=== PATIENT | male | born 1955 | race Caucasian/White ===

== ENCOUNTER 2020-02-08 13:01 | Inpatient (IN) | payer BC, MEDICARE ==
[2020-02-08] MEDS ORDERED: DILTIAZEM DRIP BOLUS FROM BAG 1 MG SOLN IV ONE (13:35)
--- NOTE | 2020-02-08 13:39 | ED ---
General Adult HPI - General Chief complaint: Arrhythmia/Palpitations Stated complaint: AFib Time Seen by Provider: 02/08/20 13:20 Source: patient, RN notes reviewed Mode of arrival: ambulatory Limitations: no limitations - History of Present Illness Initial comments: Patient is a pleasant [age]-year-old male presenting to the emergency Department with concern for new-onset atrial fibrillation. Patient went to surgery Center today and was going to have cataract surgery however prior to procedurepatient was diagnosed with atrial fibrillation. No history of similar symptoms previous. Patient is symptom-free.no chest pain. No dyspnea. Mild leg swelling which is chronic and unchanged. Patient did not take a Lasix today. No palpitations. No history of arrhythmia.patient does normally take Plavix and aspirin. - Related Data Home Medications Medication Instructions Recorded Confirmed Aspirin EC [Ecotrin Low Dose] 81 mg PO HS 02/08/20 02/08/20 Atorvastatin [Lipitor] 40 mg PO DAILY 02/08/20 02/08/20 Benazepril HCl [Lotensin] 40 mg PO HS 02/08/20 02/08/20 Cholecalciferol [Vitamin D3 (25 1,000 unit PO DAILY 02/08/20 02/08/20 Mcg = 1000 Iu)] Clopidogrel [Plavix] 75 mg PO DAILY 02/08/20 02/08/20 Doxazosin Mesylate 8 mg PO HS 02/08/20 02/08/20 Empagliflozin [Jardiance] 10 mg PO DAILY 02/08/20 02/08/20 Furosemide [Lasix] 20 mg PO DAILY 02/08/20 02/08/20 Insulin Glargine,Hum.rec.anlog 70 unit SQ HS 02/08/20 02/08/20 [Lantus Solostar] Insulin Lispro [humaLOG Kwikpen] See Protocol SQ TID-W/MEALS 02/08/20 02/08/20 Ketorolac Tromethamine [Acular 1 drop RIGHT EYE BID 02/08/20 02/08/20 0.5%] L.acidoph,Paracasei, B.lactis 1 cap PO DAILY 02/08/20 02/08/20 [Probiotic] Levothyroxine Sodium [Synthroid] 50 mcg PO DAILY 02/08/20 02/08/20 Loteprednol Etabonate [Inveltys] 1 drop RIGHT EYE BID 02/08/20 02/08/20 Ofloxacin 0.3% Ophth Soln [Ocuflox 1 drop RIGHT EYE BID 02/08/20 02/08/20 Ophth Soln] [place]-3 Fatty Acids/Fish Oil 1 cap PO HS 02/08/20 02/08/20 [[place]-3 Fish Oil 1,200 mg Sfgl] carvediloL [Carvedilol] 12.5 mg PO BID 02/08/20 02/08/20 Allergies Allergy/AdvReac Type Severity Reaction Status Date / Time codeine AdvReac Nausea & Verified 02/08/20 13:54 Vomiting Review of Systems ROS Statement: Those systems with pertinent positive or pertinent negative responses have been documented in the HPI. ROS Other: All systems not noted in ROS Statement are negative. Constitutional: Denies: fever Eyes: Denies: eye pain ENT: Denies: ear pain Respiratory: Denies: cough, dyspnea Cardiovascular: Reports: dyspnea on exertion (mild chronic, unchanged). Denies: chest pain, palpitations, orthopnea Endocrine: Denies: fatigue Gastrointestinal: Denies: abdominal pain Genitourinary: Denies: dysuria Musculoskeletal: Denies: back pain Skin: Denies: rash Neurological: Denies: weakness Past Medical History Past Medical History: Coronary Artery Disease (CAD), Diabetes Mellitus, Hyperlipidemia, Hypertension, Vascular Disorder Past Surgical History: Heart Catheterization With Stent Additional Past Surgical History / Comment(s): kidney stones Past Psychological History: No Psychological Hx Reported Smoking Status: Former smoker Past Alcohol Use History: None Reported Past Drug Use History: None Reported General Exam Limitations: no limitations General appearance: alert, in no apparent distress Head exam: Present: normocephalic Eye exam: Present: normal appearance Neck exam: Present: normal inspection Respiratory exam: Present: normal lung sounds bilaterally Cardiovascular Exam: Present: tachycardia, irregular rhythm Expanded Peripheral pulses: 2+: Radial (R), Radial (L), Posterior Tibialis (R), Posterior Tibialis (L) GI/Abdominal exam: Present: soft. Absent: tenderness Extremities exam: Present: normal inspection. Absent: pedal edema, calf tenderness Neurological exam: Present: alert Psychiatric exam: Present: normal affect, normal mood Skin exam: Present: normal color Course Vital Signs 02/08/20 02/08/20 02/08/20 13:13 14:04 14:14 Temperature 97 F L Pulse Rate 121 H 107 H 130 H Pulse Rate [ 131 H [employer] ] Respiratory 18 18 20 Rate Blood Pressure 132/81 118/79 118/79 O2 Sat by Pulse 99 98 98 Oximetry EKG Findings - EKG Comments: EKG Findings:: A. fib with RVR, rate 141. QRS 104. QT 308. QTC 471. Left axis. Left anterior fascicular block. Poor R-wave progression. Septal Q waves. Inferior Q waves. No acute ST change. Medical Decision Making - Medical Decision Making patient reevaluated and resting comfortably in bed. Heart rate 133. Patient updated on results and plan. Case discussed with Dr. Mann, who will admit covering for hospital call. Cardiology will be placed on consult. - Lab Data Result diagrams: 02/08/20 13:41 02/08/20 13:41 Lab Results 02/08/20 02/08/20 02/08/20 Range/Units 13:41 13:41 13:41 WBC 9.2 (3.8-10.6) k/uL RBC 5.30 (4.30-5.90) m/uL Hgb 15.5 (13.0-17.5) gm/dL Hct 48.2 (39.0-53.0) % MCV 90.9 (80.0-100.0) fL MCH 29.3 (25.0-35.0) pg MCHC 32.2 (31.0-37.0) g/dL RDW 14.6 (11.5-15.5) % Plt Count 125 L (150-450) k/uL MPV 9.5 Neutrophils % 76 % Lymphocytes % 15 % Monocytes % 7 % Eosinophils % 1 % Basophils % 0 % Neutrophils # 7.0 (1.3-7.7) k/uL Lymphocytes # 1.3 (1.0-4.8) k/uL Monocytes # 0.6 (0-1.0) k/uL Eosinophils # 0.1 (0-0.7) k/uL Basophils # 0.0 (0-0.2) k/uL PT 10.4 (9.0-12.0) sec INR 1.0 (<1.2) APTT 25.1 (22.0-30.0) sec Sodium 138 (137-145) mmol/L Potassium 4.7 (3.5-5.1) mmol/L Chloride 109 H (98-107) mmol/L Carbon Dioxide 22 (22-30) mmol/L Anion Gap 7 mmol/L BUN 34 H (9-20) mg/dL Creatinine 1.16 (0.66-1.25) mg/dL Est GFR (CKD-EPI)AfAm 77 (>60 ml/min/1.73 sqM) Est GFR (CKD-EPI)NonAf 66 (>60 ml/min/1.73 sqM) Glucose 266 H (74-99) mg/dL Calcium 9.4 (8.4-10.2) mg/dL Magnesium 2.0 (1.6-2.3) mg/dL Total Bilirubin 0.9 (0.2-1.3) mg/dL AST 24 (17-59) U/L ALT 23 (4-49) U/L Alkaline Phosphatase 78 (38-126) U/L Troponin I (0.000-0.034) ng/mL Total Protein 7.1 (6.3-8.2) g/dL Albumin 4.1 (3.5-5.0) g/dL TSH 1.190 (0.465-4.680) mIU/L Free T4 1.00 (0.78-2.19) ng/dL Free T3 pg/mL 3.5 (2.8-5.3) pg/ml 02/08/20 Range/Units 13:41 WBC (3.8-10.6) k/uL RBC (4.30-5.90) m/uL Hgb (13.0-17.5) gm/dL Hct (39.0-53.0) % MCV (80.0-100.0) fL MCH (25.0-35.0) pg MCHC (31.0-37.0) g/dL RDW (11.5-15.5) % Plt Count (150-450) k/uL MPV Neutrophils % % Lymphocytes % % Monocytes % % Eosinophils % % Basophils % % Neutrophils # (1.3-7.7) k/uL Lymphocytes # (1.0-4.8) k/uL Monocytes # (0-1.0) k/uL Eosinophils # (0-0.7) k/uL Basophils # (0-0.2) k/uL PT (9.0-12.0) sec INR (<1.2) APTT (22.0-30.0) sec Sodium (137-145) mmol/L Potassium (3.5-5.1) mmol/L Chloride (98-107) mmol/L Carbon Dioxide (22-30) mmol/L Anion Gap mmol/L BUN (9-20) mg/dL Creatinine (0.66-1.25) mg/dL Est GFR (CKD-EPI)AfAm (>60 ml/min/1.73 sqM) Est GFR (CKD-EPI)NonAf (>60 ml/min/1.73 sqM) Glucose (74-99) mg/dL Calcium (8.4-10.2) mg/dL Magnesium (1.6-2.3) mg/dL Total Bilirubin (0.2-1.3) mg/dL AST (17-59) U/L ALT (4-49) U/L Alkaline Phosphatase (38-126) U/L Troponin I <0.012 (0.000-0.034) ng/mL Total Protein (6.3-8.2) g/dL Albumin (3.5-5.0) g/dL TSH (0.465-4.680) mIU/L Free T4 (0.78-2.19) ng/dL Free T3 pg/mL (2.8-5.3) pg/ml - Radiology Data Radiology results: image reviewed (Chest x-ray shows cardiomegaly) Critical Care Time Critical Care Time: Yes Total Critical Care Time: 32 Disposition Clinical Impression: Atrial fibrillation with RVR Disposition: ADMITTED IP TO THIS HOSP Is patient prescribed a controlled substance at d/c from ED?: No Referrals: Rudy Del Cid DO [Primary Care Provider] - 1-2 days Decision Time: 15:22
[2020-02-08] MEDS ORDERED: DILTIAZEM 125 MG in SODIUM CHLORIDE 0.9% 100 ML IV SCH (13:45)
--- NOTE | 2020-02-08 13:55 | XR ---
EXAMINATION TYPE: XR chest 1V portable DATE OF EXAM: 02/08/2020 COMPARISON: None INDICATION: Dysrhythmia TECHNIQUE: Single frontal view of the chest is obtained. FINDINGS: The heart size is enlarged. The pulmonary vasculature is normal. The lungs are clear. IMPRESSION: 1. Cardiomegaly
[2020-02-08 13:59] LABS: Basophils % (A) 0 %; Eosinophils # (A) 0.1 k/uL (0-0.7); Eosinophils % (A) 1 %; HCT 48.2 % (39.0-53.0); HGB 15.5 gm/dL (13.0-17.5); Lymphocytes # (A) 1.3 k/uL (1.0-4.8); Lymphocytes % (A) 15 %; MCH 29.3 pg (25.0-35.0); MCHC 32.2 g/dL (31.0-37.0); MCV 90.9 fL (80.0-100.0); Mean Platelet Volume 9.5; Monocytes # (A) 0.6 k/uL (0-1.0); Monocytes % (A) 7 %; Neutrophils % (A) 76 %; Platelet Count 125 k/uL (150-450); RDW 14.6 % (11.5-15.5); WBC 9.2 k/uL (3.8-10.6)
[2020-02-08 14:08] LABS: Albumin 4.1 g/dL (3.5-5.0); Calcium 9.4 mg/dL (8.4-10.2); Potassium 4.7 mmol/L (3.5-5.1); Total Bilirubin 0.9 mg/dL (0.2-1.3); Total Protein 7.1 g/dL (6.3-8.2)
[2020-02-08 14:13] LABS: Partial Thromboplastin Time 25.1 sec (22.0-30.0); Prothrombin Time 10.4 sec (9.0-12.0)
[2020-02-08] MEDS ORDERED: HEPARIN SODIUM,PORCINE 5,000 UNIT/ML 1 ML VIAL IV ONE (15:22)
[2020-02-08] MEDS ORDERED: NITROGLYCERIN SL TABS 0.4 MG TAB SUBLINGUAL PRN (15:22)
[2020-02-08] MEDS ORDERED: ASPIRIN 81 MG PO STA (15:22)
[2020-02-08] MEDS ORDERED: HEPARIN SOD,PORK IN 0.45% NACL 25,000 UNIT in 0.45% NACL 1 250ML.BAG IV SCH (15:30)
[2020-02-08 16:30] LABS: Glucose,Whole Blood 176 mg/dL (75-99)
[2020-02-08] MEDS: carvediloL 12.5 MG TAB PO SCH (19:56)
[2020-02-08 20:03] LABS: Glucose,Whole Blood 149 mg/dL (75-99)
--- NOTE | 2020-02-08 20:22 | P.HPIM ---
History of Present Illness H&P Date: 02/08/20 Chief Complaint: Arrhythmia Patient is a 64-year-old male with a known history of coronary artery disease with prior stent placement in 2009, currently not on follow-up with his informatics nurse, Dr. Doe for the past 2 to 3 years, hypertension, diabetes type 2 insulin-dependent, hyperlipidemia, previous history of smoking and obesity with BMI 38.7 presents to ER with concern for new onset atrial fibrillation. Patient went to surgery center for cataract surgery however prior to procedure patient was found to be in rapid ventricular rate. Patient sent to ER for suspected A. fib with RVR. Otherwise patient denied any complaints of dizziness or lightheadedness. Denied any palpitations. No complaints of chest pain or shortness breath. Patient does take Lasix daily which he did not take today due to surgery. Patient also noticed swelling of his legs slightly more than his usual chronic swelling. No headache or dizziness or lightheadedness. No fever no chills. No cough or sputum production. Denied any recent illnesses. Chest x-ray showed cardiomegaly. EKG showed atrial fibrillation with rapid rate Laboratory data showed sodium 138, potassium 4.7, BUN 34 and creatinine 1.16 Blood sugar is 266 Troponin x2 - TSH is 1.19 Liver enzymes are within normal limits. WBC 10.2, hemoglobin 15.5 and platelets 125 EKG showed A. fib with RVR with heart rate 141. No acute ST changes. Review of Systems Constitutional: Patient denies any fever or chills . No generalized weakness or weight loss. Abdomen: Patient denied nausea vomiting and diarrhea and abdominal pain. Cardiovascular: Patient denies any chest pain or short of breath no palpitations. Respiratory: patient denied any cough or sputum production. No shortness of breath Neurologic: Patient denied any numbness or tingling headache. Musculoskeletal: Patient denies any complaints of joint swelling or deformity. Skin: Negative Psychiatric: Negative Endocrine: No heat or cold intolerance. No recent weight gain. Genitourinary: No dysuria or hematuria. All other 14 point ROS negative except the above Past Medical History Past Medical History: Atrial Fibrillation, Coronary Artery Disease (CAD), Diabetes Mellitus, Hyperlipidemia, Hypertension, Vascular Disorder Additional Past Medical History / Comment(s): kidney stones, New a-fib 02/08/2020 History of Any Multi-Drug Resistant Organisms: None Reported Past Surgical History: Heart Catheterization With Stent Additional Past Surgical History / Comment(s): kidney stones Past Anesthesia/Blood Transfusion Reactions: No Reported Reaction Date of Last Stent Placement:: 2009 Past Psychological History: No Psychological Hx Reported Smoking Status: Former smoker Past Alcohol Use History: None Reported Past Drug Use History: None Reported - Past Family History Father Family Medical History: Chest Pain / Angina, Coronary Artery Disease (CAD) Additional Family Medical History / Comment(s): CABG Medications and Allergies Home Medications Medication Instructions Recorded Confirmed Type Aspirin EC [Ecotrin Low Dose] 81 mg PO HS 02/08/20 02/08/20 History Atorvastatin [Lipitor] 40 mg PO DAILY 02/08/20 02/08/20 History Benazepril HCl [Lotensin] 40 mg PO HS 02/08/20 02/08/20 History Cholecalciferol [Vitamin D3 (25 1,000 unit PO DAILY 02/08/20 02/08/20 History Mcg = 1000 Iu)] Clopidogrel [Plavix] 75 mg PO DAILY 02/08/20 02/08/20 History Doxazosin Mesylate 8 mg PO HS 02/08/20 02/08/20 History Empagliflozin [Jardiance] 10 mg PO DAILY 02/08/20 02/08/20 History Furosemide [Lasix] 20 mg PO DAILY 02/08/20 02/08/20 History Insulin Glargine,Hum.rec.anlog 70 unit SQ HS 02/08/20 02/08/20 History [Lantus Solostar] Insulin Lispro [humaLOG Kwikpen] See Protocol SQ TID-W/MEALS 02/08/20 02/08/20 History Ketorolac Tromethamine [Acular 1 drop RIGHT EYE BID 02/08/20 02/08/20 History 0.5%] L.acidoph,Paracasei, B.lactis 1 cap PO DAILY 02/08/20 02/08/20 History [Probiotic] Levothyroxine Sodium [Synthroid] 50 mcg PO DAILY 02/08/20 02/08/20 History Loteprednol Etabonate [Inveltys] 1 drop RIGHT EYE BID 02/08/20 02/08/20 History Ofloxacin 0.3% Ophth Soln [Ocuflox 1 drop RIGHT EYE BID 02/08/20 02/08/20 History Ophth Soln] [place]-3 Fatty Acids/Fish Oil 1 cap PO HS 02/08/20 02/08/20 History [[place]-3 Fish Oil 1,200 mg Sfgl] carvediloL [Carvedilol] 12.5 mg PO BID 02/08/20 02/08/20 History Allergies Allergy/AdvReac Type Severity Reaction Status Date / Time codeine AdvReac Nausea & Verified 02/08/20 13:54 Vomiting Physical Exam Vitals: Vital Signs Temp Pulse Pulse Resp BP BP Pulse Ox 02/08/20 19:54 67 16 112/75 96 02/08/20 15:54 116 H 18 118/79 98 02/08/20 15:38 113 H 20 90/61 97 02/08/20 14:14 130 H 20 118/79 98 02/08/20 14:04 107 H 131 H 18 118/79 98 02/08/20 13:13 97 F L 121 H 18 132/81 99 Intake and Output 02/08/20 02/08/20 02/08/20 06:59 14:59 22:59 Intake Total 240 Balance 240 Intake: Oral 240 Other: Weight 125.736 kg 125.736 kg PHYSICAL EXAMINATION: Patient is lying in the bed comfortably, no acute distress, awake alert and oriented.. HEENT: Normocephalic. Neck is supple. Pupils reactive. Nostrils clear. Oral cavity is moist. Ears reveal no drainage. Neck reveals no JVD, carotid bruits, or thyromegaly. CHEST EXAMINATION: Trachea is central. Symmetrical expansion. Lung ennis clear to auscultation and percussion. CARDIAC: Normal S1, S2 with no gallops. No murmurs. Irregularly irregular rhythm. ABDOMEN: Soft. Bowel sounds normal. No organomegaly. No abdominal bruits. Extremities: 2+ edema. No clubbing or cyanosis Neurologically awake, alert, oriented x3 with well-coordinated movements. No focal deficits noted Skin: No rash or skin lesions. Psychiatric: Coperative. Nonsuicidal Musculoskeletal: No joint swelling or deformity. Normal range of motion. Results CBC & Chem 7: 02/08/20 13:41 02/08/20 13:41 Labs: Abnormal Lab Results - Last 24 Hours (Table) 02/08/20 02/08/20 02/08/20 Range/Units 13:41 13:41 16:28 Plt Count 125 L (150-450) k/uL Chloride 109 H (98-107) mmol/L BUN 34 H (9-20) mg/dL Glucose 266 H (74-99) mg/dL POC Glucose (mg/dL) 176 H (75-99) mg/dL 02/08/20 Range/Units 20:02 Plt Count (150-450) k/uL Chloride (98-107) mmol/L BUN (9-20) mg/dL Glucose (74-99) mg/dL POC Glucose (mg/dL) 149 H (75-99) mg/dL Thrombosis Risk Factor Assmnt - DVT/VTE Prophylaxis DVT/VTE Prophylaxis: Pharmacologic Prophylaxis ordered - Choose All That Apply Any of the Below Risk Factors Present?: Yes Each Factor Represents 1 point: Obesity (BMI >25) Other Risk Factors: Yes Each Risk Factor Represents 2 Points: Age 61-74 years Other congenital or acquired thrombophilia - If yes, enter type in comment: No Thrombosis Risk Factor Assessment Total Risk Factor Score: 3 Thrombosis Risk Factor Assessment Level: Moderate Risk Assessment and Plan Assessment: Atrial fibrillation with rapid regular rate. New onset Coronary artery disease with history of stent placement in 2009 currently not on follow-up with cardiology Hypertension Hyperlipidemia Diabetes type 2 insulin-dependent Previous history of smoking Obesity BMI 38.7 Hypothyroidism DVT prophylaxis Plan: Patient will be continued on telemetry monitoring. Continue with Cardizem drip and heparin drip. Cardiology was consulted. TSH is within normal limits. Continue with aspirin statins and Coreg. Continue with insulin dosing and titrate as needed. Continue to follow closely and further recommendations based on clinical course. Time with Patient: Greater than 30
[2020-02-08] MEDS: DOXAZOSIN 4 MG TAB PO SCH (20:35)
[2020-02-08] MEDS: INSULIN DETEMIR (LEVEMIR) 100 UNIT/ML SYR SQ SCH (20:35)
[2020-02-08] MEDS: INSULIN ASPART (NovoLOG) 100 UNIT/ML VIAL SQ SCH (20:35)
[2020-02-08] MEDS ORDERED: NON FORMULARY DRUG (Omega-3 Fatty Acids/Fish Oil [Omega-3 Fish Oil 1,200 Mg Sfgl] 1 EACH C PO SCH (21:00)
[2020-02-08] MEDS: KETOROLAC 0.5% OPHTH DROPS 5 ML BTL RIGHT EYE SCH (22:20)
[2020-02-08] MEDS: OFLOXACIN 0.3% OPHTH DROPS 5 ML BOTTLE RIGHT EYE SCH (22:20)
[2020-02-08] MEDS: NON FORMULARY DRUG (Loteprednol Etabonate [Inveltys] 2.8 ML Drops.Susp) RIGHT EYE SCH (22:20)
[2020-02-09 04:58] LABS: Platelet Count 124 k/uL (150-450)
[2020-02-09 05:40] LABS: Cholesterol 124 mg/dL (<200); HDL Cholesterol 34 mg/dL (40-60); LDL Cholesterol,Calculated 58 mg/dL (0-99); Triglycerides 158 mg/dL (<150)
[2020-02-09] MEDS: LEVOTHYROXINE 50 MCG TAB PO SCH (06:06)
[2020-02-09] MEDS: carvediloL 12.5 MG TAB PO SCH (06:09)
[2020-02-09 06:21] LABS: Glucose,Whole Blood 162 mg/dL (75-99)
[2020-02-09] MEDS: INSULIN ASPART (NovoLOG) 100 UNIT/ML VIAL SQ SCH ×5 (06:22→21:13)
[2020-02-09] MEDS ORDERED: ALPRAZolam 0.5 MG TAB PO PRN (08:43)
[2020-02-09] MEDS ORDERED: ASPIRIN 325 MG TAB PO STA (08:43)
[2020-02-09] MEDS ORDERED: ALPRAZolam 0.25 MG TAB PO PRN (08:43)
[2020-02-09] MEDS ORDERED: ASPIRIN 81 MG PO SCH (09:00)
[2020-02-09] MEDS ORDERED: CLOPIDOGREL 75 MG TAB PO SCH (09:00)
[2020-02-09] MEDS ORDERED: ASPIRIN 325 MG TAB PO SCH (09:00)
[2020-02-09] MEDS: ATORVASTATIN 40 MG TAB PO SCH (09:20)
[2020-02-09] MEDS: METOPROLOL SUCCINATE (ER) 50 MG TAB.ER.24H PO SCH ×2 (09:20→21:14)
[2020-02-09] MEDS: CHOLECALCIFEROL 1,000 UNIT TAB PO SCH (09:20)
[2020-02-09] MEDS: NON FORMULARY DRUG (Empagliflozin [Jardiance] 10 MG Tablet) PO SCH (09:21)
[2020-02-09] MEDS: KETOROLAC 0.5% OPHTH DROPS 5 ML BTL RIGHT EYE SCH ×3 (09:21→23:44)
[2020-02-09] MEDS: OFLOXACIN 0.3% OPHTH DROPS 5 ML BOTTLE RIGHT EYE SCH ×2 (09:22→23:44)
[2020-02-09] MEDS: NON FORMULARY DRUG (Loteprednol Etabonate [Inveltys] 2.8 ML Drops.Susp) RIGHT EYE SCH ×2 (09:23→23:44)
--- NOTE | 2020-02-09 09:39 | P.CRDCN ---
History of Present Illness History of present illness: HISTORY OF PRESENTING ILLNESS This is a pleasant 64-year-old male past medical history significant for coronary artery disease s/p PCI to the RCA and circumflex 2007, diabetes mellitus, hypertension, dyslipidemia and former nicotine dependence. He has not followed with a well tester in the office in many years. Previously he was a patient of Dr. Doe and his stents were performed by Dr. Melgoza. We have been asked to see in consultation for new onset atrial fibrillation. He states he went in for a I procedure and they noticed his heart rate was fast and irregular. He got to the emergency department had an EKG revealing atrial fibrillation with rapid ventricular rate. He was initiated on IV heparin and IV Cardizem. He is seen and examined resting comfortably laying flat in bed in no acute distress. He denies symptoms of chest pain, shortness of breath, dizzines s or palpitations. He states in hindsight over the previous one year he has noticed increased fatigue and possibly a decrease in his level of activity. He is active on a regular basis and is doing mall walking and rides his bike regularly in the warm weather. Catheterization report from 08/2007 reviewed, he had a normal LV function with inferobasal hypokinesia. He initially had PCI of the RCA and was brought back 2 months later for 2 stents to the mid circumflex. Echo being performed at the bedside reveals impaired LV function. DIAGNOSTICS EKG reveals atrial fibrillation with rapid ventricular rate heart rate of 141. Chest xray reveals cardiomegaly with normal pulmonary vasculature. Laboratory reviewed, WBC 9.2, hemoglobin 15.5, platelets 125, sodium 138, potassium 4.7, creatinine 1.16, cardiac enzymes negative 3, TSH 1.19, LDL 58, HDL 34 and total cholesterol 124. Current cardiac medications include Plavix 75 mg daily, Lasix 20 mg daily, benazepril 40 mg at bedtime, doxazosin 8 mg at bedtime, carvedilol 12.5 mg twice a day, atorvastatin 40 mg daily and aspirin 81 mg daily. REVIEW OF SYSTEMS At the time of my exam: CONSTITUTIONAL: Denies fever or chills. CARDIOVASCULAR: Denies chest pain, shortness of breath, orthopnea, PND or palpitations. RESPIRATORY: Denies cough. GASTROINTESTINAL: Denies abdominal pain, diarrhea, constipation, nausea or vomiting. MUSCULOSKELETAL: Denies myalgias. NEUROLOGIC: Denies numbness, tingling or weakness. ENDOCRINE: Denies fatigue, weight change, polydipsia or polyurina. GENITOURINARY: Denies burning, hematuria or urgency with micturation. HEMATOLOGIC: Denies history of anemia or bleeding. PHYSICAL EXAMINATION Blood pressure 118/76 heart rate 65 afebrile and maintaining oxygen saturation on room air. CONSTITUTIONAL: No apparent distress. HEENT: Head is normocephalic. Pupils are equal, round. Sclerae anicteric. Mucous membranes of the mouth are moist. No JVD. No carotid bruit. CHEST EXAMINATION: Lungs are clear to auscultation. No chest wall tenderness is noted on palpation or with deep breathing. HEART EXAMINATION: Irregular rate and rhythm. S1, S2 heard. No murmurs, gallops or rub. ABDOMEN: Soft, nontender. Positive bowel sounds. EXTREMITIES: 2+ peripheral pulses, no lower extremity edema and no calf tenderness. NEUROLOGIC EXAMINATION: Patient is awake, alert and oriented x3. ASSESSMENT New onset paroxysmal atrial fibrillation with rapid ventricular response Cardiomyopathy Acute systolic heart failure Thrombocytopenia Hypertension Dyslipidemia Diabetes mellitus PLAN Recommend proceeding with cardiac catheterization to assess progression of coronary artery disease. I have discussed the risks, benefits and alternative therapies for the above-mentioned procedure and for both sedation/analgesia as well as necessary blood product administration, if indicated, as they pertain to this patient. The patient has indicated understanding and acceptance of the risks and procedures discussed. Questions have been answered appropriately and he is agreeable to move forward with the above stated procedure. His blood pressures have been borderline and heart rates are fairly controlled. Discontinue IV Cardizem and change Coreg to Toprol 50 mg twice a day. Currently maintained on heparin infusion, he will require superintendent container terminal anti- coagulation for thromboembolic protection. We will check the cost of Eliquis 5 mg BID. Further recommendations to follow based on clinical course. Thank you kindly for this consultation. Nurse Practitioner note has been reviewed, I agree with a documented findings and plan of care. Patient was seen and examined. Past Medical History Past Medical History: Atrial Fibrillation, Coronary Artery Disease (CAD), Diabetes Mellitus, Hyperlipidemia, Hypertension, Vascular Disorder Additional Past Medical History / Comment(s): kidney stones, New a-fib 02/08/2020 History of Any Multi-Drug Resistant Organisms: None Reported Past Surgical History: Heart Catheterization With Stent Additional Past Surgical History / Comment(s): kidney stones Past Anesthesia/Blood Transfusion Reactions: No Reported Reaction Date of Last Stent Placement:: 2009 Past Psychological History: No Psychological Hx Reported Smoking Status: Former smoker Past Alcohol Use History: None Reported Past Drug Use History: None Reported - Past Family History Father Family Medical History: Chest Pain / Angina, Coronary Artery Disease (CAD) Additional Family Medical History / Comment(s): CABG Medications and Allergies Home Medications Medication Instructions Recorded Confirmed Type Aspirin EC [Ecotrin Low Dose] 81 mg PO HS 02/08/20 02/08/20 History Atorvastatin [Lipitor] 40 mg PO DAILY 02/08/20 02/08/20 History Benazepril HCl [Lotensin] 40 mg PO HS 02/08/20 02/08/20 History Cholecalciferol [Vitamin D3 (25 1,000 unit PO DAILY 02/08/20 02/08/20 History Mcg = 1000 Iu)] Clopidogrel [Plavix] 75 mg PO DAILY 02/08/20 02/08/20 History Doxazosin Mesylate 8 mg PO HS 02/08/20 02/08/20 History Empagliflozin [Jardiance] 10 mg PO DAILY 02/08/20 02/08/20 History Furosemide [Lasix] 20 mg PO DAILY 02/08/20 02/08/20 History Insulin Glargine,Hum.rec.anlog 70 unit SQ HS 02/08/20 02/08/20 History [Lantus Solostar] Insulin Lispro [humaLOG Kwikpen] See Protocol SQ TID-W/MEALS 02/08/20 02/08/20 History Ketorolac Tromethamine [Acular 1 drop RIGHT EYE BID 02/08/20 02/08/20 History 0.5%] L.acidoph,Paracasei, B.lactis 1 cap PO DAILY 02/08/20 02/08/20 History [Probiotic] Levothyroxine Sodium [Synthroid] 50 mcg PO DAILY 02/08/20 02/08/20 History Loteprednol Etabonate [Inveltys] 1 drop RIGHT EYE BID 02/08/20 02/08/20 History Ofloxacin 0.3% Ophth Soln [Ocuflox 1 drop RIGHT EYE BID 02/08/20 02/08/20 History Ophth Soln] [place]-3 Fatty Acids/Fish Oil 1 cap PO HS 02/08/20 02/08/20 History [[place]-3 Fish Oil 1,200 mg Sfgl] carvediloL [Carvedilol] 12.5 mg PO BID 02/08/20 02/08/20 History Allergies Allergy/AdvReac Type Severity Reaction Status Date / Time codeine AdvReac Nausea & Verified 02/08/20 13:54 Vomiting Physical Exam Vitals: Vital Signs Temp Pulse Pulse Resp BP BP Pulse Ox 02/09/20 03:27 98.2 F 115 H 18 106/62 97 02/09/20 03:26 115 H 18 02/09/20 00:00 97.9 F 110 H 18 124/70 96 02/08/20 20:00 100 16 02/08/20 19:54 67 16 112/75 96 02/08/20 15:54 116 H 18 118/79 98 02/08/20 15:38 113 H 20 90/61 97 02/08/20 14:14 130 H 20 118/79 98 02/08/20 14:04 107 H 131 H 18 118/79 98 02/08/20 13:13 97 F L 121 H 18 132/81 99 Intake and Output 02/08/20 02/09/20 02/09/20 22:59 06:59 14:59 Intake Total 480 70 Balance 480 70 Intake: Intake, IV Titration 70 Amount Diltiazem 125 mg In 25 Sodium Chloride 0.9% 100 ml @ 5 MG/HR 5 mls/hr IV .Q24H [facility] Rx#:[id number] Heparin Sod,Pork in 0.45% 45 NaCl 25,000 unit In 0.45 % NaCl 1 250ml.bag @ 7. 953 UNITS/KG/HR 10 mls/hr IV .Q24H [facility] Rx#: [id number] Oral 480 Other: # Voids 2 Weight 125.736 kg 124.2 kg Results 02/09/20 04:49 02/08/20 13:41 Cardiac Enzymes 02/08/20 02/08/20 02/08/20 Range/Units 13:41 13:41 16:37 AST 24 (17-59) U/L Troponin I <0.012 <0.012 (0.000-0.034) ng/mL 02/08/20 Range/Units 21:41 AST (17-59) U/L Troponin I <0.012 (0.000-0.034) ng/mL Coagulation 02/08/20 02/08/20 02/09/20 Range/Units 13:41 21:41 04:49 PT 10.4 (9.0-12.0) sec APTT 25.1 54.6 H 56.4 H (22.0-30.0) sec Lipids 02/09/20 Range/Units 04:49 Triglycerides 158 H (<150) mg/dL Cholesterol 124 (<200) mg/dL HDL Cholesterol 34 L (40-60) mg/dL CBC 02/08/20 02/09/20 Range/Units 13:41 04:49 WBC 9.2 (3.8-10.6) k/uL RBC 5.30 (4.30-5.90) m/uL Hgb 15.5 (13.0-17.5) gm/dL Hct 48.2 (39.0-53.0) % Plt Count 125 L 124 L (150-450) k/uL Comprehensive Metabolic Panel 02/08/20 Range/Units 13:41 Sodium 138 (137-145) mmol/L Potassium 4.7 (3.5-5.1) mmol/L Chloride 109 H (98-107) mmol/L Carbon Dioxide 22 (22-30) mmol/L BUN 34 H (9-20) mg/dL Creatinine 1.16 (0.66-1.25) mg/dL Glucose 266 H (74-99) mg/dL Calcium 9.4 (8.4-10.2) mg/dL AST 24 (17-59) U/L ALT 23 (4-49) U/L Alkaline Phosphatase 78 (38-126) U/L Total Protein 7.1 (6.3-8.2) g/dL Albumin 4.1 (3.5-5.0) g/dL Current Medications Generic Name Dose Route Start Last Admin Trade Name Freq PRN Reason Stop Dose Admin Aspirin 81 mg 02/09/20 09:00 Aspirin 325 Mg Tab PO DAILY [facility] Atorvastatin Calcium 40 mg 02/09/20 09:00 Atorvastatin 40 Mg Tab PO DAILY [facility] Carvedilol 12.5 mg 02/08/20 18:00 02/09/20 06:09 Carvedilol 12.5 Mg Tab PO 12.5 mg BID-W/MEALS [facility] Administration Cholecalciferol 1,000 unit 02/09/20 09:00 Cholecalciferol 1,000 Unit Tab PO DAILY [facility] Doxazosin Mesylate 8 mg 02/08/20 21:00 02/08/20 20:35 Doxazosin 4 Mg Tab PO 8 mg HS [facility] Administration Diltiazem HCl 125 mg/ Sodium 125 mls @ 5 mls/hr 02/08/20 13:45 02/08/20 13:55 Chloride IV 5 mg/hr .Q24H [facility] 5 mls/hr Administration 5 MG/HR Heparin Sodium/Sodium Chloride 250 mls @ 10 mls/hr 02/08/20 15:30 02/08/20 15:33 25,000 unit/ Sodium Chloride IV 7.953 units/kg/hr .Q24H [facility] 10 mls/hr Administration Protocol 7.953 UNITS/KG/HR Insulin Aspart 0 unit 02/08/20 21:00 02/09/20 06:22 Insulin Aspart (Novolog) 100 Unit/Ml Vial SQ Not Given ACHS [facility] Protocol Insulin Detemir 70 unit 02/08/20 21:00 02/08/20 20:35 Insulin Detemir (Levemir) 100 Unit/Ml Syr SQ Not Given HS [facility] Ketorolac Tromethamine 1 drops 02/08/20 21:00 02/08/20 22:20 Ketorolac 0.5% Ophth Drops 5 Ml Btl RIGHT EYE Not Given BID [facility] Lactobacillus Acidoph/Bulgaricus 1 each 02/09/20 09:00 Lactobacillus Acidoph & Bulgar 1 Each Packet PO DAILY [facility] Levothyroxine Sodium 50 mcg 02/09/20 06:30 02/09/20 06:06 Levothyroxine 50 Mcg Tab PO Not Given DAILY@0630 [facility] Nitroglycerin 0.4 mg 02/08/20 15:22 Nitroglycerin Sl Tabs 0.4 Mg Tab SUBLINGUAL Q5M PRN Chest Pain Non-Formulary Medication 10 mg 02/09/20 09:00 Empagliflozin [Jardiance] PO DAILY [facility] Non-Formulary Medication 1 drop 02/08/20 21:00 02/08/20 22:20 Loteprednol Etabonate [Inveltys] RIGHT EYE Not Given BID [facility] Ofloxacin 1 drops 02/08/20 21:00 11/17/20 22:20 Ofloxacin 0.3% Ophth Drops 5 Ml Bottle RIGHT EYE Not Given BID [facility] Sodium Chloride 10 ml 02/08/20 21:00 02/08/20 20:37 Sodium Chloride 0.9% Flush 10 Ml Syringe IV Not Given BID [facility] Intake and Output 02/08/20 02/09/20 02/09/20 22:59 06:59 14:59 Intake Total 480 70 Balance 480 70 Intake: Intake, IV Titration 70 Amount Diltiazem 125 mg In 25 Sodium Chloride 0.9% 100 ml @ 5 MG/HR 5 mls/hr IV .Q24H [facility] Rx#:[id number] Heparin Sod,Pork in 0.45% 45 NaCl 25,000 unit In 0.45 % NaCl 1 250ml.bag @ 7. 953 UNITS/KG/HR 10 mls/hr IV .Q24H [facility] Rx#: [id number] Oral 480 Other: # Voids 2 Weight 125.736 kg 124.2 kg 02/09/20 04:49 02/08/20 13:41
[2020-02-09] MEDS ORDERED: VERAPAMIL 2.5 MG/ML 2 ML AMP ONE (09:42)
[2020-02-09] MEDS ORDERED: fentaNYL (PF) 50 MCG/ML 2 ML AMP ONE (09:42)
[2020-02-09] MEDS ORDERED: LIDOCAINE 1% INJ 10MG/ML (20 ML MDV) ONE (09:42)
--- NOTE | 2020-02-09 09:49 | ECHOF ---
Referral Reason:new-onset A. fib MEASUREMENTS -------- HEIGHT: 180.3 cm WEIGHT: 123.8 kg BP: 106/62 RVIDd: 2.9 cm (< 3.3) IVSd: 1.5 cm (0.6 - 1.1) LVIDd: 4.2 cm (3.9 - 5.3) LVPWd: 1.4 cm (0.6 - 1.1) IVSs: 1.6 cm LVIDs: 3.9 cm LVPWs: 1.8 cm LA Diam: 4.3 cm (2.7 - 3.8) LAESV Index (A-L): 28.72 ml/m Ao Diam: 3.2 cm (2.0 - 3.7) AV Cusp: 2.3 cm (1.5 - 2.6) MV EXCURSION: 15.618 mm (> 18.000) MV EF SLOPE: 93 mm/s (70 - 150) EPSS: 1.8 cm RAP: 15.00 mmHg RVSP: 41.94 mmHg FINDINGS -------- Atrial fibrillation. This was a technically difficult study with suboptimal views. The left ventricular size is normal. There is moderate concentric left ventricular hypertrophy. O verall left ventricular systolic function is severely impaired with, an EF between 20 - 25 %. Infer ior Hypokinesis The right ventricle is normal in size. LA is midly dilated 29-33ml/m2. The right atrium is normal in size. Lumason used Interatrial and interventricular septum intact. There is mild aortic valve sclerosis. Mild mitral regurgitation is present. Mild tricuspid regurgitation present. There is mild pulmonary hypertension. The right ventricular systolic pressure, as measured by Doppler, is 41.94mmHg. Trace/mild (physiologic) pulmonic regurgitation. The aortic root size is normal. The inferior vena cava is dilated with no significant inspiratory collapse which is consistent estima rina right atrial pressure of >15 mmHg. There is no pericardial effusion. CONCLUSIONS -------- 1. The left ventricular size is normal. 2. There is moderate concentric left ventricular hypertrophy. 3. Overall left ventricular systolic function is severely impaired with, an EF between 20 - 25 %. 4. Inferior Hypokinesis 5. LA is midly dilated 29-33ml/m2. 6. Lumason used 7. Mild mitral regurgitation is present. 8. Mild tricuspid regurgitation present. 9. There is mild pulmonary hypertension. 10. The right ventricular systolic pressure, as measured by Doppler, is 41.94mmHg. 11. Trace/mild (physiologic) pulmonic regurgitation. 12. The inferior vena cava is dilated with no significant inspiratory collapse which is consistent es timated right atrial pressure of >15 mmHg. 13. There is no pericardial effusion. FERRYBOAT DECKHAND: Joi Sinclair RDCS
[2020-02-09] MEDS ORDERED: IV FLUID CONTINUATION 1,000 ML IV ONE (10:02)
[2020-02-09] MEDS ORDERED: fentaNYL (PF) 50 MCG/ML 2 ML AMP IV ONE (10:25)
[2020-02-09] MEDS ORDERED: LIDOCAINE 1% INJ 10MG/ML (20 ML MDV) SQ ONE (10:36)
[2020-02-09] MEDS ORDERED: VERAPAMIL SYRINGE (5 MG/10 ML) INTRAARTER ONE (10:41)
[2020-02-09] MEDS ORDERED: CLOPIDOGREL 75 MG TAB ONE (10:52)
[2020-02-09] MEDS ORDERED: CLOPIDOGREL 75 MG TAB PO ONE (10:55)
[2020-02-09] MEDS ORDERED: IOPAMIDOL-370 125ML BTL INJ ONE ×3 (11:07→11:59)
[2020-02-09] MEDS ORDERED: ATROPINE SULFATE 0.1 MG/ML 10ML SYRINGE IV PRN (12:20)
[2020-02-09] MEDS ORDERED: RX INFO: IV CONTRAST WAS GIVEN 1 EACH MISC MISCELLANE PRN (12:20)
[2020-02-09] MEDS ORDERED: MAG HYDROX/AL HYDROX/SIMETH 30 ML CUP PO PRN (12:20)
[2020-02-09] MEDS ORDERED: NITROGLYCERIN SL TABS 0.4 MG TAB SUBLINGUAL PRN (12:20)
[2020-02-09] MEDS ORDERED: ZOLPIDEM 5 MG TAB PO PRN (12:20)
[2020-02-09] MEDS ORDERED: SODIUM CHLORIDE 0.9% 1,000 ML IV SCH (12:30)
[2020-02-09 12:41] LABS: Glucose,Whole Blood 155 mg/dL (75-99)
[2020-02-09] MEDS: AMIODARONE 200 MG TAB PO SCH ×2 (12:46→21:14)
[2020-02-09] MEDS: SPIRONOLACTONE 25 MG TAB PO SCH (12:46)
[2020-02-09] MEDS: LACTOBACILLUS ACIDOPH & BULGAR 1 EACH PACKET PO SCH (12:52)
[2020-02-09] MEDS: SODIUM CHLORIDE 0.9% 1,000 ML IV SCH (12:56)
[2020-02-09 14:09] LABS: Hemoglobin A1C 8.4 % (4.0-6.0)
--- NOTE | 2020-02-09 14:24 | CC ---
CARDIAC CATHETERIZATION REPORT Mr. Gallo is a 64-year-old male with a known history of coronary artery disease status post stenting of the left circumflex and right coronary artery in 2007 who was noted to be in atrial fibrillation when he went and seen his ophthalmolith. He was referred to the hospital. According to him, he has been complaining of some progressive fatigue. On evaluation, he was noted to have significant cardiomyopathy, which is different than it was in 2008. In view of that, recommendation made regarding cardiac catheterization. The procedures, risks, and complication were discussed with the patient who is in full understanding and agreement. PROCEDURE: Patient was brought to laboratory tester in a fasting semi-sedated state after receiving fentanyl and Benadryl and achieving moderate conscious sedated state. Using Xylocaine anesthesia and Seldinger technique, a 6-Swedish sheath was introduced in the right radial artery. Selective right and left coronary angiography performed using 5-Swedish 3.5 bend right and left Nadir catheter. Multiple views of the coronary artery including hemiaxial views were obtained. Following that, angioplasty and stenting was performed. Following that, 5-Swedish tight pigtail catheter was introduced into the left ventricle and left ventricular end-diastolic pressure was calculated. Following that, catheter and sheath were removed. Hemostasis was obtained with deployment of a TR band. There was no immediate complication. Patient is returned to his room in stable condition. FINDINGS: LEFT MAIN: This is a short size vessel, bifurcating into left circumflex, left anterior descending artery. Left main coronary artery has no evidence of high-grade stenosis. LEFT ANTERIOR DESCENDING ARTERY: This is a large-sized vessel, giving rise to 2 diagonal branches. The proximal left anterior descending artery has a 40% plaque, eccentric. The rest of the vessel has mild intimal disease without any evidence of high- grade stenosis. LEFT CIRCUMFLEX: This is a large nondominant vessel, giving rise to 2 obtuse marginal branches. The proximal left circumflex has 95% stenosis. The proximal segment of the second obtuse marginal branch has a tubular lesion of about 80%. The rest of the vessel has intimal disease without any evidence of high-grade stenosis. RIGHT CORONARY ARTERY: This is a dominant vessel, large in caliber, bifurcating into PDA and posterolateral segment and branches. The mid segment of the right coronary artery has a long tubular lesion up to 70% involving the takeoff of the PLV. The rest of the vessel has intimal disease without any evidence of high-grade stenosis. LEFT VENTRICULOGRAM: Left ventriculogram was not performed. HEMODYNAMICS: There was no gradient across the aortic valve. The left ventricular end- diastolic pressure was 14 - 16 mmHg. CONCLUSION: 1. Significant stenosis in the proximal left circumflex and the second obtuse marginal branch. 2. Mild disease in the LAD. 3. Borderline significant lesion in the right coronary artery. RECOMMENDATION: In view of finding anatomy, I recommend proceeding with angioplasty and stenting. The procedures, risks, and complications were discussed with the patient who is in full understanding and agreement. MMODL / IJN: [id number] /
--- NOTE | 2020-02-09 14:35 | PTCA ---
PERCUTANEOUSTRANS CORORONARY ANGIOGRAPHY Mr. Gallo is a 64-year-old male with a known history of coronary artery disease who presented with atrial fibrillation of unknown duration without any evidence of cardiomyopathy, underwent cardiac catheterization, was found to have critical stenosis involving the left circumflex, obtuse marginal branch and borderline significant lesion in the right coronary artery. In view of that, recommendation was made regarding angioplasty and stenting, the procedures, risks, and complication were discussed with the patient who is in full understanding and agreement. PROCEDURE: A 6-[place] Citizen EBU 3.75 guiding catheter introduced into the system, after cannulating the left main, a 0.014 balanced medium weight J-wire was advanced across the lesion, positioned distal second obtuse marginal branch. Following that, a 2.5 x 12 mm NCU 4 balloon was advanced and multiple inflations were done at maximum of 12 atmospheres. Following that, the balloon was removed and a 2.5 x 18 mm is Xience Tanya stent was deployed in the obtuse marginal branch and post-dilated at 16 atmospheres. After removing the balloon, a 3.25 x 15 mm Xience Tanya stent was deployed in the proximal segment and postdilated at 16 atmospheres. Following that, a 3.5 x 12 mm NC Trek balloon was advanced and inflation in the proximal left circumflex was done. After the last inflation, after appropriate wait, the balloon and the guidewire were withdrawn back in the guiding catheter. Images were obtained and repeated. Those images reveal stable successful stenting. At that point, the guiding catheter, the balloon and the guidewire guide wire were removed and a 6-[place] Citizen FR4 guiding catheter introduced into the system after cannulating the right coronary ostium, a Interactive TKOo Verrata + pressure guidewire was introduced and IFR was measured at 0.72. Subsequently, the 2.5 x 12 mm NC balloon was advanced and inflation in the PLV and the mid right coronary artery and distal right coronary was performed. Following that, a 2.75 x 38 mm Xience Tanya stent was advanced and positioned across the PLV into the distal right coronary artery and postdilated at 16 atmospheres. After removing that balloon, a 3.0 x 28 mm Xience Tanya stent was advanced proximal to the first one and deployed and postdilated at 16 atmospheres. Following that, a 3.5 x 15 mm NC Trek balloon was advanced and multiple inflation in the stented segment was done at a maximum of 14 atmospheres. After the last inflation, after appropriate wait, the balloon and the guidewire were withdrawn back in the guiding catheter. Images were obtained and repeated. Those images reveal stable successful stenting. At that point, the guiding catheter, the balloon and the guidewire were removed. Left ventricular end-diastolic pressure was calculated. Following that, catheter and sheath were removed. Hemostasis was obtained with deployment of a TR band. There was no immediate complication. Patient is returned to his room in stable condition. Of note, the patient had no chest discomfort or significant EKG changes with the inflation. He received a total of 8000 units of intravenous heparin throughout the procedure and his ACT was monitored and he received intra-arterial verapamil. FINDINGS: 1. Successful stenting of the proximal left circumflex with reduction of stenosis from 95% to 0%. 2. Successful stenting of the second obtuse marginal branch with reduction of stenosis from 80% to 0%. 3. Successful stenting of the mid, distal and the proximal PLV of the right coronary artery with reduction of stenosis from 70% with positive IFR to 0%. RECOMMENDATION: Patient will be continued on aspirin, Plavix, beta salud, Aricept, and statin. Anticoagulation will be initiated, then he will be evaluated regarding the need to undergo cardioversion and druze normal sinus rhythm. Those findings and recommendation were discussed with the patient and he is full understanding and agreement. Duration of the procedure is 89 minutes. JULIO / TICON: [id number] / YVONNE
[2020-02-09 15:05] VITALS: BMI 38.2
[2020-02-09 16:47] LABS: Glucose,Whole Blood 207 mg/dL (75-99)
[2020-02-09 20:02] LABS: Glucose,Whole Blood 230 mg/dL (75-99)
[2020-02-09] MEDS: DOXAZOSIN 4 MG TAB PO SCH (21:14)
[2020-02-09] MEDS: INSULIN DETEMIR (LEVEMIR) 100 UNIT/ML SYR SQ SCH (21:14)
--- NOTE | 2020-02-09 23:06 | P.PN ---
Subjective Progress Note Date: 02/09/20 Principal diagnosis: Atrial fibrillation with rapid regular rate. 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 Doe for the past 2 to 3 years, hypertension, diabetes type 2 insulin-dependent, hyperlipidemia, previous history of smoking and obesity with BMI 38.7 presents to ER with concern for new onset atrial fibrillation. Patient went to surgery center for cataract surgery however prior to procedure patient was found to be in rapid ventricular rate. Patient sent to ER for suspected A. fib with RVR. Otherwise patient denied any complaints of dizziness or lightheadedness. Denied any palpitations. No complaints of chest pain or shortness breath. Patient does take Lasix daily which he did not take today due to surgery. Patient also noticed swelling of his legs slightly more than his usual chronic swelling. No headache or dizziness or lightheadedness. No fever no chills. No cough or sputum production. Denied any recent illnesses. Chest x-ray showed cardiomegaly. EKG showed atrial fibrillation with rapid rate Laboratory data showed sodium 138, potassium 4.7, BUN 34 and creatinine 1.16 Blood sugar is 266 Troponin x2 - TSH is 1.19 Liver enzymes are within normal limits. WBC 10.2, hemoglobin 15.5 and platelets 125 EKG showed A. fib with RVR with heart rate 141. No acute ST changes. 02/09/2020 Patient is currently resting in the bed comfortably. No complaints of chest pain or shortness breath. Heart rate is controlled and patient did improve symptomatically. No dizziness or lightheadedness. Patient has been afebrile. No nausea vomiting or abdominal pain or diarrhea. Laboratory data showed A1c level 8.4 and LDL 58 cardiology is following. 2D echocardiogram showed severely impaired LV function with ejection fraction of 20 to 25%, mild pulmonary hypertension and moderate concentric left ventricular hypertrophy. Current medications reviewed. Objective - Vital Signs Vital signs: Vital Signs Temp 98.2 F 02/09/20 15:10 Pulse 129 H 02/09/20 16:10 Resp 20 02/09/20 15:10 BP 113/69 02/09/20 16:10 Pulse Ox 97 02/09/20 15:10 Intake & Output 02/09/20 02/09/20 02/10/20 06:59 18:59 06:59 Intake Total 310 1899.167 Balance 310 1899.167 Weight 124.2 kg 124.2 kg Intake: IV 350 Intake, IV Titration 70 709.167 Amount Diltiazem 125 mg In 25 20 Sodium Chloride 0.9% 100 ml @ 5 MG/HR 5 mls/hr IV .Q24H [facility] Rx#:[id number] Heparin Sod,Pork in 0.45% 45 189.167 NaCl 25,000 unit In 0.45 % NaCl 1 250ml.bag @ 7. 953 UNITS/KG/HR 10 mls/hr IV .Q24H [facility] Rx#: [id number] Sodium Chloride 0.9% 1, 500 000 ml @ 75 mls/hr IV . [id number] [facility] Rx#:[id number] Oral 240 840 Other: Voiding Method Toilet # Voids 2 1 - Exam PHYSICAL EXAMINATION: Patient is lying in the bed comfortably, no acute distress, awake alert and oriented.. HEENT: Normocephalic. Neck is supple. Pupils reactive. Nostrils clear. Oral cavity is moist. Ears reveal no drainage. Neck reveals no JVD, carotid bruits, or thyromegaly. CHEST EXAMINATION: Trachea is central. Symmetrical expansion. Lung ennis clear to auscultation and percussion. CARDIAC: Normal S1, S2 with no gallops. No murmurs. Irregularly irregular rhythm. ABDOMEN: Soft. Bowel sounds normal. No organomegaly. No abdominal bruits. Extremities: 2+ edema. No clubbing or cyanosis Neurologically awake, alert, oriented x3 with well-coordinated movements. No focal deficits noted Skin: No rash or skin lesions. Psychiatric: Coperative. Nonsuicidal Musculoskeletal: No joint swelling or deformity. Normal range of motion. - Labs CBC & Chem 7: 02/09/20 04:49 02/08/20 13:41 Labs: Abnormal Lab Results - Last 24 Hours (Table) 02/08/20 02/08/20 02/09/20 Range/Units 20:02 21:41 04:49 Plt Count (150-450) k/uL APTT 54.6 H (22.0-30.0) sec POC Glucose (mg/dL) 149 H (75-99) mg/dL Hemoglobin A1c 8.4 H (4.0-6.0) % Triglycerides (<150) mg/dL HDL Cholesterol (40-60) mg/dL 02/09/20 02/09/20 02/09/20 Range/Units 04:49 04:49 04:49 Plt Count 124 L (150-450) k/uL APTT 56.4 H (22.0-30.0) sec POC Glucose (mg/dL) (75-99) mg/dL Hemoglobin A1c (4.0-6.0) % Triglycerides 158 H (<150) mg/dL HDL Cholesterol 34 L (40-60) mg/dL 02/09/20 02/09/20 02/09/20 Range/Units 06:16 12:39 16:46 Plt Count (150-450) k/uL APTT (22.0-30.0) sec POC Glucose (mg/dL) 162 H 155 H 207 H (75-99) mg/dL Hemoglobin A1c (4.0-6.0) % Triglycerides (<150) mg/dL HDL Cholesterol (40-60) mg/dL Assessment and Plan Assessment: Atrial fibrillation with rapid regular rate. New onset Coronary artery disease with history of stent placement in 2009 currently not on follow-up with cardiology Cardiomyopathy Hypertension Hyperlipidemia Diabetes type 2 insulin-dependent Previous history of smoking Obesity BMI 38.7 Hypothyroidism DVT prophylaxis Plan: Patient will be continued on telemetry monitoring. Continued with Cardizem drip and heparin drip. Heart rate is controlled and patient was started on amiodarone and metoprolol. Cardiology is following. Patient underwent cardiac catheterization today. TSH is within normal limits. Continue with aspirin statins .. Continue with insulin dosing and titrate as needed. Continue to follow closely and further recommendations based on clinical course. Time with Patient: Greater than 30
[2020-02-10 06:18] LABS: Glucose,Whole Blood 105 mg/dL (75-99)
[2020-02-10] MEDS: SODIUM CHLORIDE 0.9% 1,000 ML IV SCH (06:25)
[2020-02-10] MEDS: INSULIN ASPART (NovoLOG) 100 UNIT/ML VIAL SQ SCH ×7 (06:25→23:37)
[2020-02-10] MEDS: LEVOTHYROXINE 50 MCG TAB PO SCH (06:25)
[2020-02-10 06:49] LABS: Mean Platelet Volume 8.9; Platelet Count 124 k/uL (150-450)
[2020-02-10 06:55] LABS: Calcium 8.9 mg/dL (8.4-10.2); Potassium 4.6 mmol/L (3.5-5.1)
[2020-02-10] MEDS: METOPROLOL SUCCINATE (ER) 50 MG TAB.ER.24H PO SCH ×2 (08:33→19:56)
[2020-02-10] MEDS: lisinopriL 5 MG TAB PO SCH ×2 (08:33→19:57)
[2020-02-10] MEDS: SPIRONOLACTONE 25 MG TAB PO SCH (08:33)
[2020-02-10] MEDS: LACTOBACILLUS ACIDOPH & BULGAR 1 EACH PACKET PO SCH (08:33)
[2020-02-10] MEDS: ATORVASTATIN 40 MG TAB PO SCH (08:34)
[2020-02-10] MEDS: ASPIRIN 81 MG PO SCH (08:34)
[2020-02-10] MEDS: CLOPIDOGREL 75 MG TAB PO SCH (08:34)
[2020-02-10] MEDS: NON FORMULARY DRUG (Empagliflozin [Jardiance] 10 MG Tablet) PO SCH (08:34)
[2020-02-10] MEDS: APIXABAN 5 MG TAB PO SCH ×2 (08:34→19:54)
[2020-02-10] MEDS: AMIODARONE 200 MG TAB PO SCH ×2 (08:34→19:59)
[2020-02-10] MEDS: KETOROLAC 0.5% OPHTH DROPS 5 ML BTL RIGHT EYE SCH ×2 (08:34→20:00)
[2020-02-10] MEDS: CHOLECALCIFEROL 1,000 UNIT TAB PO SCH (08:34)
[2020-02-10] MEDS: OFLOXACIN 0.3% OPHTH DROPS 5 ML BOTTLE RIGHT EYE SCH ×2 (08:35→20:00)
[2020-02-10] MEDS: NON FORMULARY DRUG (Loteprednol Etabonate [Inveltys] 2.8 ML Drops.Susp) RIGHT EYE SCH ×2 (08:35→20:00)
[2020-02-10] MEDS ORDERED: ASPIRIN 81 MG PO SCH (09:00)
--- NOTE | 2020-02-10 10:00 | PN ---
PROGRESS NOTE Cleo is a 64-year-old male with a known history of coronary artery disease who was noted to be in atrial fibrillation of unknown duration, came into the emergency room. He has a history of coronary artery disease status post percutaneous revascularization in 2007. His echocardiogram revealed a severely impaired left ventricular systolic function with ejection fraction of 20%-25%. He underwent cardiac catheterization and stenting of the left circumflex as well of the right coronary artery. He is doing well this morning. According to him, he is feeling much better. His breathing is stable. He denies any dizziness. He continued to be in atrial fibrillation. He has no palpitation. He continues to be on aspirin once a day, amiodarone 400 mg twice a day, Lipitor 40 mg daily, Plavix 75 mg daily, doxazosin 8 mg daily, insulin, metoprolol tartrate 50 mg twice a day, spironolactone 25 mg daily. PHYSICAL EXAMINATION: Blood pressure 136/80 with a heart rate in the 70s to 80s. LUNGS: Clear. HEART: Irregular, regular S1, S2. No S3. No rub. ABDOMEN: Soft, obese, nontender. EXTREMITIES: No edema, right radial pulse intact. EKG revealed atrial fibrillation with no acute changes. LAB DATA: Revealed BUN and creatinine of 31 and 1.04, potassium 4.6. IMPRESSION: 1. Atrial fibrillation of unknown duration. 2. Coronary artery disease, status post stenting of the left circumflex and to the RCA. 3. Cardiomyopathy, recent, different from the past duration unclear. 4. Diabetes. 5. Hyperlipidemia. RECOMMENDATION: I will add to his regimen low-dose SIOMN inhibitor. Continue the rest of his medical regimen. Will initiate treatment with anticoagulation. Increase his activity gradually and if he remains stable, I am hopeful he will be able to be discharged home tomorrow. MMODL / IJN: [id number] /
[2020-02-10 11:51] LABS: Glucose,Whole Blood 192 mg/dL (75-99)
[2020-02-10 16:44] LABS: Glucose,Whole Blood 182 mg/dL (75-99)
[2020-02-10 19:52] VITALS: RESP 18
[2020-02-10] MEDS: DOXAZOSIN 4 MG TAB PO SCH (19:56)
[2020-02-10 20:10] LABS: Glucose,Whole Blood 111 mg/dL (75-99)
[2020-02-10 23:06] LABS: Glucose,Whole Blood 138 mg/dL (75-99)
[2020-02-10] MEDS: INSULIN DETEMIR (LEVEMIR) 100 UNIT/ML SYR SQ SCH (23:37)
[2020-02-11 03:39] VITALS: TEMP 98.1
[2020-02-11 06:22] LABS: Glucose,Whole Blood 137 mg/dL (75-99)
[2020-02-11] MEDS: LEVOTHYROXINE 50 MCG TAB PO SCH (06:51)
[2020-02-11] MEDS: INSULIN ASPART (NovoLOG) 100 UNIT/ML VIAL SQ SCH ×4 (07:05→13:44)
[2020-02-11 07:14] LABS: Glucose,Whole Blood 191 mg/dL (75-99)
[2020-02-11] MEDS: OFLOXACIN 0.3% OPHTH DROPS 5 ML BOTTLE RIGHT EYE SCH (09:11)
[2020-02-11] MEDS: KETOROLAC 0.5% OPHTH DROPS 5 ML BTL RIGHT EYE SCH (09:11)
[2020-02-11] MEDS: ASPIRIN 81 MG PO SCH (09:11)
[2020-02-11] MEDS: LACTOBACILLUS ACIDOPH & BULGAR 1 EACH PACKET PO SCH (09:11)
[2020-02-11] MEDS: AMIODARONE 200 MG TAB PO SCH (09:12)
[2020-02-11] MEDS: CHOLECALCIFEROL 1,000 UNIT TAB PO SCH (09:12)
[2020-02-11] MEDS: CLOPIDOGREL 75 MG TAB PO SCH (09:12)
[2020-02-11] MEDS: APIXABAN 5 MG TAB PO SCH (09:12)
[2020-02-11] MEDS: METOPROLOL SUCCINATE (ER) 50 MG TAB.ER.24H PO SCH (09:12)
[2020-02-11] MEDS: lisinopriL 5 MG TAB PO SCH (09:12)
[2020-02-11] MEDS: ATORVASTATIN 40 MG TAB PO SCH (09:12)
[2020-02-11] MEDS: SPIRONOLACTONE 25 MG TAB PO SCH (09:12)
[2020-02-11] MEDS: NON FORMULARY DRUG (Loteprednol Etabonate [Inveltys] 2.8 ML Drops.Susp) RIGHT EYE SCH (09:18)
[2020-02-11] MEDS: NON FORMULARY DRUG (Empagliflozin [Jardiance] 10 MG Tablet) PO SCH (09:19)
[2020-02-11 09:21] LABS: Mean Platelet Volume 9.8; Platelet Count 122 k/uL (150-450)
[2020-02-11] MEDS ORDERED: FUROSEMIDE 20 MG TAB PO SCH (09:30)
[2020-02-11 09:52] VITALS: BP 114/78; PULSE 126
--- NOTE | 2020-02-11 09:52 | PN ---
PROGRESS NOTE Mr. Gallo is a 64-year-old male who has a known history of coronary artery disease, who presented with evidence of atrial fibrillation of unknown duration. He had underwent a cardiac catheterization because of his prior history and his cardiomyopathy that was new and was found to have significant disease in the left circumflex and the right coronary artery, underwent successful stenting of both vessels. He is feeling quite well this morning, ambulating without difficulty. Denying any chest pain. Denies any dizziness, palpitation. Denies any nausea. He continues to be on amiodarone 400 mg twice a day, Eliquis 5 mg twice a day, aspirin once a day, Lipitor 40 mg daily, Plavix 75 mg daily, insulin, levothyroxine, lisinopril 5 mg twice a day, metoprolol succinate 50 mg twice a day and spironolactone 25 mg daily. PHYSICAL EXAMINATION: Blood pressure 106/58 with a heart rate in the 70s. LUNGS: Clear. HEART: Irregular, regular, S1, S2. No S3. No rub. ABDOMEN: Soft, nontender, obese. EXTREMITIES: +1 edema. LAB DATA: Revealed BUN and creatinine 32 and 1.04, potassium 4.6. IMPRESSION: 1. Status post stenting of the left circumflex and the right coronary artery. 2. Evidence of cardiomyopathy of unknown duration or etiology. 3. Atrial fibrillation appears to be recent. 4. Prior history of myocardial infarction. 5. History of hypertension. 6. Hyperlipidemia. RECOMMENDATION: I will add to his regimen furosemide 20 mg twice a day. He should be able to be discharged home today and followed as an outpatient and if he remains in atrial fibrillation, then attempt to cardiovert him to restore sinus mechanism and follow his left ventricular systolic function. MMODL / IJN: [id number] /
--- NOTE | 2020-02-11 10:02 | P.PN ---
Subjective Progress Note Date: 02/10/20 Principal diagnosis: Atrial fibrillation with rapid regular rate. 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 Patient went to surgery center for cataract surgery however prior to procedure patient was found to be in rapid ventricular rate. Patient sent to ER for suspected A. fib with RVR. Otherwise patient denied any complaints of dizziness or lightheadedness. Denied any palpitations. No complaints of chest pain or shortness breath. Patient does take Lasix daily which he did not take today due to surgery. Patient also noticed swelling of his legs slightly more than his usual chronic swelling. No headache or dizziness or lightheadedness. No fever no chills. No cough or sputum production. Denied any recent illnesses. Chest x-ray showed cardiomegaly. EKG showed atrial fibrillation with rapid rate Laboratory data showed sodium 138, potassium 4.7, BUN 34 and creatinine 1.16 Blood sugar is 266 Troponin x2 - TSH is 1.19 Liver enzymes are within normal limits. WBC 10.2, hemoglobin 15.5 and platelets 125 EKG showed A. fib with RVR with heart rate 141. No acute ST changes. 02/09/2020 Patient is currently resting in the bed comfortably. No complaints of chest pain or shortness breath. Heart rate is controlled and patient did improve symptomatically. No dizziness or lightheadedness. Patient has been afebrile. No nausea vomiting or abdominal pain or diarrhea. Laboratory data showed A1c level 8.4 and LDL 58 cardiology is following. 2D echocardiogram showed severely impaired LV function with ejection fraction of 20 to 25%, mild pulmonary hypertension and moderate concentric left ventricular hypertrophy. 02/10/2020 Patient is status post cardiac catheterization and stenting of left circumflex as well as right coronary artery. Patient currently feels better and denied any complains of chest pain or shortness of breath. Ejection fraction 20-25%. Denied any nausea vomiting or abdominal pain or diarrhea. Heart rate is better controlled. Continue to monitor and anticipate discharge in next 24 hours. Current medications reviewed. Objective - Vital Signs Vital signs: Vital Signs Temp 97.6 F 11/19/20 16:02 Pulse 80 02/10/20 16:02 Resp 16 02/10/20 16:02 BP 118/79 02/10/20 16:02 Pulse Ox 96 02/10/20 15:36 Intake & Output 02/09/20 02/10/20 02/10/20 18:59 06:59 18:59 Intake Total 1899.167 325 355 Balance 1899.167 325 355 Weight 124.2 kg 125 kg Intake: IV 350 Intake, IV Titration 709.167 325 Amount Diltiazem 125 mg In 20 Sodium Chloride 0.9% 100 ml @ 5 MG/HR 5 mls/hr IV .Q24H [facility] Rx#:[id number] Heparin Sod,Pork in 0.45% 189.167 NaCl 25,000 unit In 0.45 % NaCl 1 250ml.bag @ 7. 953 UNITS/KG/HR 10 mls/hr IV .Q24H [facility] Rx#: [id number] Sodium Chloride 0.9% 1, 325 000 ml @ 50 mls/hr IV . Q20H [facility] Rx#:[id number] Sodium Chloride 0.9% 1, 500 000 ml @ 75 mls/hr IV . [id number] [facility] Rx#:[id number] Oral 840 355 Other: Voiding Method Toilet Toilet # Voids 1 3 2 - Exam PHYSICAL EXAMINATION: Patient is lying in the bed comfortably, no acute distress, awake alert and oriented.. HEENT: Normocephalic. Neck is supple. Pupils reactive. Nostrils clear. Oral cavity is moist. Ears reveal no drainage. Neck reveals no JVD, carotid bruits, or thyromegaly. CHEST EXAMINATION: Trachea is central. Symmetrical expansion. Lung ennis clear to auscultation and percussion. CARDIAC: Normal S1, S2 with no gallops. No murmurs. Irregularly irregular rhythm. ABDOMEN: Soft. Bowel sounds normal. No organomegaly. No abdominal bruits. Extremities: 2+ edema. No clubbing or cyanosis Neurologically awake, alert, oriented x3 with well-coordinated movements. No focal deficits noted Skin: No rash or skin lesions. Psychiatric: Coperative. Nonsuicidal Musculoskeletal: No joint swelling or deformity. Normal range of motion. - Labs CBC & Chem 7: 02/11/20 08:10 02/10/20 06:27 Labs: Abnormal Lab Results - Last 24 Hours (Table) 02/09/20 02/09/20 02/10/20 Range/Units 16:46 20:00 06:17 Plt Count (150-450) k/uL Chloride (98-107) mmol/L Carbon Dioxide (22-30) mmol/L BUN (9-20) mg/dL Glucose (74-99) mg/dL POC Glucose (mg/dL) 207 H 230 H 105 H (75-99) mg/dL 02/10/20 02/10/20 02/10/20 Range/Units 06:27 06:27 11:49 Plt Count 124 L (150-450) k/uL Chloride 110 H (98-107) mmol/L Carbon Dioxide 21 L (22-30) mmol/L BUN 32 H (9-20) mg/dL Glucose 123 H (74-99) mg/dL POC Glucose (mg/dL) 192 H (75-99) mg/dL Assessment and Plan Assessment: Atrial fibrillation with rapid regular rate. New onset Cardio myopathy ejection fraction 20-25%. Status post cardiac catheterization stent placement to LAD and RCA on 02/09/2020 Coronary artery disease with history of stent placement in 2009 currently not on follow-up with cardiology Cardiomyopathy Hypertension Hyperlipidemia Diabetes type 2 insulin-dependent Previous history of smoking Obesity BMI 38.7 Hypothyroidism DVT prophylaxis Plan: Patient will be continued on telemetry monitoring. Cardizem and heparin drip leung s been discontinued.. Heart rate is controlled and started on anticoagulation. patient was started on amiodarone and metoprolol. Cardiology is following. Patient underwent cardiac catheterization. TSH is within normal limits. Continue with aspirin statins .. Continue with insulin dosing and titrate as needed. Continue to follow closely and further recommendations based on clinical course. Time with Patient: Greater than 30
[2020-02-11 10:14] LABS: Potassium 5.5 mmol/L (3.5-5.1)
[2020-02-11 12:18] LABS: Glucose,Whole Blood 140 mg/dL (75-99)
== END 2020-02-11 13:44 | disposition home or self-care (01) | DRG 246 ==
LOC: EC 13:01 → 3SCARD 15:34 → OBSVTOIN 02-10 13:24
PROVIDERS: ADMIT Internal Medicine; ATTEND Internal Medicine
PROC: B2111ZZ Fluoroscopy of Multiple Coronary Arteries using Low Osmolar Contrast (ICD-10-PCS; principal; 2020-02-09 11:00)
PROC: 027237Z Dilation of Coronary Artery, Three Arteries with Four or More Drug-eluting Intraluminal Devices, Percutaneous Approach (ICD-10-PCS; principal; 2020-02-09 11:00)
PROC: 4A023N7 Measurement of Cardiac Sampling and Pressure, Left Heart, Percutaneous Approach (ICD-10-PCS; principal; 2020-02-09 11:00)
DX: I25.10 Atherosclerotic heart disease of native coronary artery without angina pectoris (principal); I50.21 Acute systolic (congestive) heart failure; D69.6 Thrombocytopenia, unspecified; E03.9 Hypothyroidism, unspecified; E11.9 Type 2 diabetes mellitus without complications; E78.5 Hyperlipidemia, unspecified; E66.9 Obesity, unspecified; I11.0 Hypertensive heart disease with heart failure; I27.20 Pulmonary hypertension, unspecified; I42.9 Cardiomyopathy, unspecified; I48.0 Paroxysmal atrial fibrillation; I25.2 Old myocardial infarction; Z68.38 Body mass index [BMI] 38.0-38.9, adult; Z79.01 Long term (current) use of anticoagulants; Z79.02 Long term (current) use of antithrombotics/antiplatelets; Z79.4 Long term (current) use of insulin; Z79.82 Long term (current) use of aspirin; Z79.890 Hormone replacement therapy; Z79.899 Other long term (current) drug therapy; Z82.49 Family history of ischemic heart disease and other diseases of the circulatory system; Z87.442 Personal history of urinary calculi; Z87.891 Personal history of nicotine dependence
CPT/HCPCS: 36415; 71045; 80048; 80053; 80061; 83036; 83735; 84439; 84443; 84481; 84484; 85025; 85049; 85347; 85610; 85730; 93005; 93306; 93458; 93571; 96365; 96366; 96376; 99291

== ENCOUNTER 2020-03-01 06:13 | Day surgery (SDC) | payer MEDICARE, BC ==
[2020-02-28 09:08] VITALS: BMI 37.1
[~2020-03-01 06:13] MED LIST: LACTATED RINGERS 1,000 ML IV SCH; SODIUM CHLORIDE 0.9% 1,000 ML IV SCH
[2020-03-01 07:05] VITALS: TEMP 98
[2020-03-01] MEDS ORDERED: SODIUM CHLORIDE 0.9% 500 ML 500 ML IV ONE ×3 (07:07→08:04)
[2020-03-01] MEDS ORDERED: PHENYLEPHRINE 10 MG/ML VIAL ONE (07:13)
[2020-03-01] MEDS ORDERED: PROPOFOL 10 MG/ML 20 ML VIAL IV ONE (07:13)
[2020-03-01] MEDS ORDERED: SODIUM CHLORIDE 0.9% 1,000 ML IV SCH (07:45)
[2020-03-01 08:13] VITALS: RESP 16
[2020-03-01] MEDS ORDERED: METOPROLOL SUCCINATE (ER) 50 MG TAB.ER.24H PO SCH (09:00)
[2020-03-01] MEDS ORDERED: LEVOTHYROXINE 50 MCG TAB PO SCH (09:00)
[2020-03-01] MEDS ORDERED: NON FORMULARY DRUG (Empagliflozin [Jardiance] 10 MG Tablet) PO SCH (09:00)
[2020-03-01] MEDS ORDERED: APIXABAN 5 MG TAB PO SCH (09:00)
[2020-03-01] MEDS ORDERED: ATORVASTATIN 40 MG TAB PO SCH (09:00)
[2020-03-01] MEDS ORDERED: SPIRONOLACTONE 25 MG TAB PO SCH (09:00)
[2020-03-01] MEDS ORDERED: AMIODARONE 200 MG TAB PO SCH (09:00)
[2020-03-01] MEDS ORDERED: CLOPIDOGREL 75 MG TAB PO SCH (09:00)
--- NOTE | 2020-03-01 09:24 | ECHOT ---
TRANSESOPHAGEAL ECHOCARDIOGRAM INDICATION: Evaluation of left atrial appendage. PROCEDURE: After explaining the procedure to the patient with risks and complications, his blood pressure, heart rate, O2 saturation was monitored. The throat was sprayed with Cetacaine. He received sedation per Anesthesia Department. The probe was introduced in the esophagus without difficulty. Images were obtained. Following that, the probe was removed. There was no immediate complication. FINDINGS: Left atrial size is dilated. Left atrial appendage is normal. Left ventricular size is normal. There is evidence of global hypokinesis, estimated ejection fraction of 25% to 30%. The aortic valve appears to be normal. Mitral valve revealed mild thickening of the mitral valve leaflets. Tricuspid valve is normal. Descending thoracic aorta appears to be normal. No pericardial effusion was noted. Contrast bubble study revealed no evidence of shunting across the interatrial septum. Doppler pulse wave and color Doppler obtained revealed a mild to moderate mitral with mild tricuspid regurgitation. There was no shunting by color Doppler study. CONCLUSION: 1. Dilated left atrium with normal appearance left atrial appendage. 2. Normal left ventricular size with severe global hypokinesis. 3. Mild to moderate mitral with mild tricuspid regurgitation. 4. No shunting across the interatrial septum. MMODL / IJN: [id number] /
[2020-03-01 09:36] VITALS: BP 111/59; PULSE 63
--- NOTE | 2020-03-01 11:18 | CE ---
CARDIAC ELECTROPHYSIOLOGY REPORT INDICATION: Atrial fibrillation. PROCEDURE: After explaining the procedure to the patient, its risks and the complications, his blood pressure, heart rate, O2 saturation was monitored and after obtaining transesophageal echocardiogram and sedated state per Anesthesia Department, a synchronized biphasic cardioversion using 200 joules was performed with amish of normal sinus rhythm. There was no immediate complication. JULIO / TICON: [id number] /
[2020-03-01] MEDS ORDERED: BENAZEPRIL HCL 40 MG PO SCH (21:00)
[2020-03-01] MEDS ORDERED: NON FORMULARY DRUG (Insulin Glargine,Hum.Rec.Anlog [Lantus Solostar] 100 UNIT/ML Insuln.Pe SQ SCH (21:00)
[2020-03-01] MEDS ORDERED: NON FORMULARY DRUG (Aspirin Ec 81 MG Tablet.Dr) PO SCH (21:00)
[2020-03-01] MEDS ORDERED: DOXAZOSIN MESYLATE 8 MG PO SCH (21:00)
== END 2020-03-01 09:34 | disposition home or self-care (01) ==
LOC: CATHCVL 06:13
PROVIDERS: ATTEND Internal Medicine Interventional Cardiology
DX: I48.21 Permanent atrial fibrillation (principal); I08.1 Rheumatic disorders of both mitral and tricuspid valves; I25.10 Atherosclerotic heart disease of native coronary artery without angina pectoris; I11.9 Hypertensive heart disease without heart failure; E07.9 Disorder of thyroid, unspecified; E66.9 Obesity, unspecified; E11.9 Type 2 diabetes mellitus without complications; E78.2 Mixed hyperlipidemia; Z68.37 Body mass index [BMI] 37.0-37.9, adult; Z79.4 Long term (current) use of insulin; Z79.82 Long term (current) use of aspirin; Z79.01 Long term (current) use of anticoagulants; Z79.02 Long term (current) use of antithrombotics/antiplatelets; Z79.890 Hormone replacement therapy; Z88.5 Allergy status to narcotic agent; Z82.49 Family history of ischemic heart disease and other diseases of the circulatory system; Z87.891 Personal history of nicotine dependence; Z87.442 Personal history of urinary calculi; Z95.5 Presence of coronary angioplasty implant and graft
CPT/HCPCS: 93312; 93320; 93005; 93325; 92960; 84132; J2370; J2704

== ENCOUNTER → 2020-03-07 | Outpatient (CLI) | payer MEDICARE, BC | END | disposition home or self-care (01) | LOC: LABWHC1 13:16 | PROVIDERS: ATTEND Family Medicine | DX: E87.5 Hyperkalemia (principal) | CPT/HCPCS: 36415; 84132 ==

== ENCOUNTER → 2020-03-13 | Outpatient (CLI) | payer MEDICARE, BC ==
[2020-03-14 00:42] LABS: Anion Gap 9.8 mmol/L (4.00-12.00); Carbon Dioxide 21.2 mmol/L (21.6-31.8); Non-African American GFR(CKD) 41.4 (60.0-200.0)
== END | disposition home or self-care (01) ==
LOC: LABWHC1 15:46
PROVIDERS: ATTEND Internal Medicine Interventional Cardiology
DX: I10 Essential (primary) hypertension (principal)
CPT/HCPCS: 36415; 80051; 82565; 84520

== ENCOUNTER → 2020-04-11 | Outpatient (CLI) | payer MEDICARE, BC ==
[2020-04-12 04:14] LABS: African American GFR (CKD) 60.7 (60.0-200.0); Anion Gap 7.6 mmol/L (4.00-12.00); BUN/Creat Ratio 23.57 Ratio (12.00-20.00); Calcium 9.4 mg/dL (8.7-10.3); Carbon Dioxide 26.4 mmol/L (21.6-31.8); Non-African American GFR(CKD) 52.4 (60.0-200.0); Potassium 5.1 mmol/L (3.5-5.5)
== END | disposition home or self-care (01) ==
LOC: LABWHC1 15:00
PROVIDERS: ATTEND Nurse Practitioner Adult Health
DX: I10 Essential (primary) hypertension (principal)
CPT/HCPCS: 36415; 80048

== ENCOUNTER → 2020-11-04 | Outpatient (CLI) | payer BC | END | disposition home or self-care (01) | LOC: LABWHC1 09:43 | PROVIDERS: ATTEND Nurse Practitioner Adult Health | DX: I10 Essential (primary) hypertension (principal); E78.2 Mixed hyperlipidemia; I48.11 Longstanding persistent atrial fibrillation ==

== ENCOUNTER → 2021-04-18 | Outpatient (CLI) | payer MEDICARE, BC ==
[2021-04-18 18:34] LABS: Basophils # (A) 0.01 X 10*3/uL (0.00-0.10); Basophils % (A) 0.1 %; Eosinophils # (A) 0.13 X 10*3/uL (0.04-0.35); Eosinophils % (A) 1.5 %; HCT 46.4 % (39.6-50.0); HGB 14.3 g/dL (13.0-17.0); Lymphocytes # (A) 1.35 X 10*3/uL (0.90-5.00); MCH 28.3 pg (27.0-32.0); MCHC 30.8 g/dL (32.0-37.0); MCV 91.7 fL (80.0-97.0); Mean Platelet Volume 12.8 fL (9.5-12.2); Monocytes # (A) 0.68 X 10*3/uL (0.20-1.00); Monocytes % (A) 8.1 %; Neutrophils # (A) 6.22 X 10*3/uL (1.80-7.70); Neutrophils % (A) 73.9 %; Platelet Count 132 X 10*3/uL (140-440); RBC 5.06 X 10*6/uL (4.40-5.60); RDW 14.2 % (11.5-14.5); WBC 8.42 X 10*3/uL (4.50-10.00)
[2021-04-18 19:42] LABS: Chol/HDL Ratio 3.49 Ratio; Creatine Kinase 85 U/L (35-257); LDL Cholesterol,Calculated 62.2 mg/dL (0.0-131.0); Uric Acid 6.5 mg/dL (3.7-8.7)
[2021-04-18 20:14] LABS: ALT 22 U/L (10-49); AST 25 U/L (14-35); African American GFR (CKD) 58.2 (60.0-200.0); Albumin 4.1 g/dL (3.8-4.9); Albumin/Globulin Ratio 1.48 (1.60-3.17); Alkaline Phosphatase 83 U/L (41-126); BUN/Creat Ratio 20.14 Ratio (12.00-20.00); Calcium 9.5 mg/dL (8.7-10.3); Carbon Dioxide 19.1 mmol/L (20.0-27.5); Chloride 106 mmol/L (96-109); Globulin 2.8 g/dL (1.6-3.3); Glucose 156 mg/dL (70-110); Non-African American GFR(CKD) 50.2 (60.0-200.0); Potassium 5.4 mmol/L (3.5-5.5); Sodium 137 mmol/L (135-145); Total Protein 6.9 g/dL (6.2-8.2)
[2021-04-18 22:57] LABS: Microalbumin Creatinine Ratio <30 mg/g Creat (0-30); Urine Creatinine 68.6 mg/dL (39.0-259.0)
== END | disposition home or self-care (01) ==
LOC: LABWHC1 11:00
PROVIDERS: ATTEND Internal Medicine Endocrinology, Diabetes & Metabolism
DX: Z12.5 Encounter for screening for malignant neoplasm of prostate (principal); E11.65 Type 2 diabetes mellitus with hyperglycemia; I10 Essential (primary) hypertension; E78.2 Mixed hyperlipidemia; E11.9 Type 2 diabetes mellitus without complications; E03.9 Hypothyroidism, unspecified; N28.9 Disorder of kidney and ureter, unspecified; E87.8 Other disorders of electrolyte and fluid balance, not elsewhere classified; R53.83 Other fatigue; M10.9 Gout, unspecified; K76.9 Liver disease, unspecified; R74.8 Abnormal levels of other serum enzymes; E34.9 Endocrine disorder, unspecified
CPT/HCPCS: 36415; 80053; 80061; 82043; 82550; 82570; 83036; 84153; 84403; 84439; 84443; 84550; 85025

== ENCOUNTER 2022-02-20 00:50 | Observation (INO) | payer MEDICARE ==
[2022-02-20] MEDS ORDERED: SODIUM CHLORIDE 0.9% 1,000 ML IV ONE (01:55)
[2022-02-20 02:06] LABS: Basophils % (A) 1 %; Eosinophils % (A) 1 %; HCT 40.2 % (39.0-53.0); HGB 13.3 gm/dL (13.0-17.5); Lymphocytes # (A) 0.5 k/uL (1.0-4.8); Lymphocytes % (A) 10 %; MCH 29.7 pg (25.0-35.0); Mean Platelet Volume 11.4; Monocytes # (A) 0.4 k/uL (0-1.0); Monocytes % (A) 8 %; Neutrophils % (A) 80 %; RBC 4.46 m/uL (4.30-5.90); RDW 13.2 % (11.5-15.5)
[2022-02-20 02:18] LABS: Partial Thromboplastin Time 27.6 sec (22.0-30.0)
[2022-02-20 02:20] LABS: Albumin 3.5 g/dL (3.5-5.0); Calcium 7.8 mg/dL (8.4-10.2); Total Bilirubin 0.5 mg/dL (0.2-1.3); Total Protein 5.8 g/dL (6.3-8.2)
[2022-02-20 02:33] LABS: Magnesium 1.6 mg/dL (1.6-2.3); Potassium 4.6 mmol/L (3.5-5.1)
[2022-02-20 02:42] LABS: Platelet Count 68 k/uL (150-450)
--- NOTE | 2022-02-20 02:47 | CT ---
EXAMINATION TYPE: CT brain nena villalobos DATE OF EXAM: 02/20/2022 COMPARISON: None HISTORY: Fall, syncope, dizziness. CT DLP: 1769.6 mGycm Automated exposure control for dose reduction was used. Images of the brain and cervical spine obtained with no contrast. There is mild cerebral cortical atrophy. There is no mass effect or midline shift. No sign of intracr anial hemorrhage. The calvarium is intact. The cervical vertebrae show mild straightening. There is anterior mild spur formation at C5-6 and C6- 7. The facet joints are intact. There is minimal cervical facet arthropathy. Skull base is intact. Ma stoid sinuses are intact. IMPRESSION: Mild cerebral atrophy. No acute intracranial abnormality. Mild spondylotic changes in the lower cervical spine. No fracture.
--- NOTE | 2022-02-20 02:49 | XR ---
EXAMINATION TYPE: XR knee limited RT DATE OF EXAM: 02/20/2022 COMPARISON: NONE HISTORY: Fall. Knee pain TECHNIQUE: 2 views FINDINGS: There is no sign of fracture nor dislocation. Knee joint spaces appear normal. No sign of j oint effusion. IMPRESSION: Negative right knee exam. No fracture
--- NOTE | 2022-02-20 02:52 | XR ---
EXAMINATION TYPE: XR wrist complete LT DATE OF EXAM: 02/20/2022 COMPARISON: NONE HISTORY: Fall. Pain TECHNIQUE: 4 views FINDINGS: There is minor spurring and joint space narrowing at the first carpometacarpal joint. The c arpal bones are intact. Radiocarpal joint is intact. There is no fracture nor dislocation. Metacarpal s are intact. 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 No fracture seen.
--- NOTE | 2022-02-20 02:56 | XR ---
EXAMINATION TYPE: XR chest 1V DATE OF EXAM: 02/20/2022 COMPARISON: 02/08/2020 HISTORY: Fall. Syncope TECHNIQUE: Single view FINDINGS: Heart and mediastinum are normal. The lungs are clear of consolidation. There are no hilar masses. There are chest leads. Bony thorax is intact. IMPRESSION: No active cardiopulmonary disease. No change.
[2022-02-20] MEDS ORDERED: MAGNESIUM SULFATE-D5W PMX 1 GM in DEXTROSE/WATER 1 100ML.BAG IVPB ONE (03:18)
[2022-02-20] MEDS ORDERED: NALOXONE 0.4 MG/ML 1 ML VIAL IV PRN (03:42)
--- NOTE | 2022-02-20 03:42 | ED ---
General Adult HPI - General Chief complaint: Fall Stated complaint: Weakness Time Seen by Provider: 02/20/22 00:53 Source: patient, EMS Mode of arrival: EMS Limitations: no limitations - History of Present Illness Initial comments: 66-year-old male presents to the emergency department with possible syncopal episode. He states that for the past 3 days he has had nasal congestion, cough and fatigue. The patient was laying in bed tonight when he attempted to get up and ambulate to the bathroom. States that he took one step before he went to the ground. He is unsure if he passed out or if his legs just gave out on him. States that he fell hitting his head, left arm and right knee. He is on anticoagulation for A. fib. His attempted to help him up however he was so weak that they had to call EMS. He denies any chest pain or shortness of breath previous to the fall. He reports to feeling back to his baseline at this time except for his upper respiratory symptoms. No changes in his bowel or bladder habits. No recorded fevers. His is also sick. Denies nausea or vomiting. Has chronic diarrhea that he is following with his primary care doctor for. Denies black or bloody stools. No other alleviating, precipitating or modifying factors - Related Data Home Medications Medication Instructions Recorded Confirmed Atorvastatin [Lipitor] 40 mg PO DAILY 02/08/20 02/20/22 Clopidogrel [Plavix] 75 mg PO DAILY 02/08/20 02/20/22 Doxazosin Mesylate 8 mg PO HS 02/08/20 02/20/22 Empagliflozin [Jardiance] 10 mg PO DAILY 02/08/20 02/20/22 Insulin Glargine,Hum.rec.anlog 33 unit SQ HS 02/08/20 02/20/22 [Lantus Solostar Pen] Levothyroxine Sodium [Synthroid] 50 mcg PO DAILY 02/08/20 02/20/22 Benazepril HCl [Lotensin] 40 mg PO HS 02/28/20 02/20/22 Cholecalciferol [Vitamin D3 (25 25 mcg PO DAILY 02/20/22 02/20/22 Mcg = 1000 Iu)] Dulaglutide [Trulicity] 1.5 mg SQ LEE 02/20/22 02/20/22 Furosemide [Lasix] 20 mg PO DAILY PRN 02/20/22 02/20/22 Insulin Lispro [humaLOG Kwikpen] See Protocol SQ AC-TID 02/20/22 02/20/22 Spironolactone [Aldactone] 12.5 mg PO DAILY 02/20/22 02/20/22 Venlafaxine HCl ER [Effexor XR] 37.5 mg PO DAILY 02/20/22 02/20/22 Previous Rx's Medication Instructions Recorded Apixaban [Eliquis] 5 mg PO BID #60 tab 02/09/20 Nitroglycerin Sl Tabs [Nitrostat] 0.4 mg SUBLINGUAL Q5M PRN #25 tab 02/11/20 Metoprolol Tartrate [Lopressor] 12.5 mg PO DAILY #30 tab 02/22/22 Zinc Sulfate [Orazinc] 220 mg PO DAILY #30 cap 02/22/22 dexAMETHasone ORAL [Hexadrol] 6 mg PO DAILY #7 tab 02/22/22 Allergies Allergy/AdvReac Type Severity Reaction Status Date / Time codeine AdvReac Nausea & Verified 02/20/22 11:55 Vomiting Review of Systems ROS Statement: Those systems with pertinent positive or pertinent negative responses have been documented in the HPI. ROS Other: All systems not noted in ROS Statement are negative. Past Medical History Past Medical History: Atrial Fibrillation, Coronary Artery Disease (CAD), Diabetes Mellitus, Hyperlipidemia, Hypertension, Thyroid Disorder Additional Past Medical History / Comment(s): kidney stones, New a-fib 02/08/2020, umbilical hernia, History of Any Multi-Drug Resistant Organisms: None Reported Past Surgical History: Heart Catheterization With Stent Additional Past Surgical History / Comment(s): kidney stones-cystoscopy, total 7 cardiac stents(last 4 on 02/08/20) Past Anesthesia/Blood Transfusion Reactions: No Reported Reaction Date of Last Stent Placement:: 02/08/20 Past Psychological History: Anxiety Smoking Status: Former smoker - Past Family History Father Family Medical History: Coronary Artery Disease (CAD) Additional Family Medical History / Comment(s): CABG General Exam Limitations: no limitations General appearance: alert, in no apparent distress Head exam: Present: atraumatic, normocephalic, normal inspection Eye exam: Present: normal appearance, PERRL, EOMI. Absent: scleral icterus, conjunctival injection, periorbital swelling ENT exam: Present: normal exam, mucous membranes moist Neck exam: Present: normal inspection. Absent: tenderness, meningismus, lymphadenopathy Respiratory exam: Present: normal lung sounds bilaterally. Absent: respiratory distress, wheezes, rales, rhonchi, stridor Cardiovascular Exam: Present: regular rate, normal rhythm, normal heart sounds. Absent: systolic murmur, diastolic murmur, rubs, gallop, clicks GI/Abdominal exam: Present: soft, normal bowel sounds. Absent: distended, tenderness, guarding, rebound, rigid Extremities exam: Present: normal inspection, full ROM, normal capillary refill. Absent: tenderness, pedal edema, joint swelling, calf tenderness Back exam: Present: normal inspection Neurological exam: Present: alert, oriented X3, CN II-XII intact Psychiatric exam: Present: normal affect, normal mood Skin exam: Present: warm, dry, intact, normal color. Absent: rash Course Vital Signs 02/20/22 02/20/22 02/20/22 01:07 02:00 03:00 Temperature 98 F Pulse Rate 64 65 64 Respiratory 16 16 16 Rate Blood Pressure 115/59 109/59 111/57 O2 Sat by Pulse 98 98 98 Oximetry 02/20/22 02/20/22 02/20/22 07:20 12:43 13:47 Temperature 101.1 F H 99.2 F Pulse Rate 74 Respiratory Rate Blood Pressure 117/59 O2 Sat by Pulse 97 95 Oximetry EKG Findings - EKG Comments: EKG Findings:: EKG demonstrates sinus rhythm with rate of 66. ME interval 171. QRS 100. QTC 397. No acute ST segment elevations or depressions concerning for ischemic changes. There is left axis deviation. EKG was interpreted by myself Medical Decision Making - Medical Decision Making On arrival patient was placed into room 18. A thorough history and physical exam was performed. Patient placed on continuous pulse ox and cardiac monitoring. IV is established. He is given a liter bolus of normal saline. Laboratory studies are conducted and reviewed. Platelets are 68. Creatinine is 1.7 which is round the patient's baseline. He is positive for Covid. CT of the brain and cervical spinous performed as well as a knee, wrist and chest x- ray. No acute intrathoracic process. No acute fractures in the wrist or knee. Patient reevaluated on multiple occasions. He is unable to get up and ambulate and therefore I did recommend admission for physical therapy. He did receive albuterol and dexamethasone for his Covid. Patient was agreeable to this plan. Currently awaiting a bed on the floor in stable condition. Spoke with Dr. Wei who agreed to admit the patient - Lab Data Result diagrams: 02/21/22 05:31 02/21/22 05:31 Lab Results 02/20/22 02/20/22 02/20/22 Range/Units 02:00 02:00 02:00 WBC 5.0 (3.8-10.6) k/uL RBC 4.46 (4.30-5.90) m/uL Hgb 13.3 (13.0-17.5) gm/dL Hct 40.2 (39.0-53.0) % MCV 90.0 (80.0-100.0) fL MCH 29.7 (25.0-35.0) pg MCHC 33.0 (31.0-37.0) g/dL RDW 13.2 (11.5-15.5) % Plt Count 68 L (150-450) k/uL MPV 11.4 Neutrophils % 80 % Lymphocytes % 10 % Monocytes % 8 % Eosinophils % 1 % Basophils % 1 % Neutrophils # 4.0 (1.3-7.7) k/uL Lymphocytes # 0.5 L (1.0-4.8) k/uL Monocytes # 0.4 (0-1.0) k/uL Eosinophils # 0.0 (0-0.7) k/uL Basophils # 0.0 (0-0.2) k/uL Manual Slide Review Performed PT 11.0 (9.0-12.0) sec INR 1.0 (<1.2) APTT 27.6 (22.0-30.0) sec Sodium 132 L (137-145) mmol/L Potassium 4.6 (3.5-5.1) mmol/L Chloride 106 (98-107) mmol/L Carbon Dioxide 19 L (22-30) mmol/L Anion Gap 7 mmol/L BUN 38 H (9-20) mg/dL Creatinine 1.71 H (0.66-1.25) mg/dL Est GFR (CKD-EPI)AfAm 47 (>60 ml/min/1.73 sqM) Est GFR (CKD-EPI)NonAf 41 (>60 ml/min/1.73 sqM) Glucose 126 H (74-99) mg/dL Estimated Ave Glu mg/dL Hemoglobin A1c (0.0-6.0) % Plasma Lactic Acid Torin (0.7-2.0) mmol/L Calcium 7.8 L (8.4-10.2) mg/dL Magnesium 1.6 (1.6-2.3) mg/dL Total Bilirubin 0.5 (0.2-1.3) mg/dL AST 42 (17-59) U/L ALT 35 (4-49) U/L Alkaline Phosphatase 59 (38-126) U/L Troponin I (0.000-0.034) ng/mL Total Protein 5.8 L (6.3-8.2) g/dL Albumin 3.5 (3.5-5.0) g/dL Coronavirus (PCR) (Not Detectd) Influenza Type A RNA (Not Detectd) Influenza Type B (PCR) (Not Detectd) 02/20/22 02/20/22 02/20/22 Range/Units 02:00 02:00 02:00 WBC (3.8-10.6) k/uL RBC (4.30-5.90) m/uL Hgb (13.0-17.5) gm/dL Hct (39.0-53.0) % MCV (80.0-100.0) fL MCH (25.0-35.0) pg MCHC (31.0-37.0) g/dL RDW (11.5-15.5) % Plt Count (150-450) k/uL MPV Neutrophils % % Lymphocytes % % Monocytes % % Eosinophils % % Basophils % % Neutrophils # (1.3-7.7) k/uL Lymphocytes # (1.0-4.8) k/uL Monocytes # (0-1.0) k/uL Eosinophils # (0-0.7) k/uL Basophils # (0-0.2) k/uL Manual Slide Review PT (9.0-12.0) sec INR (<1.2) APTT (22.0-30.0) sec Sodium (137-145) mmol/L Potassium (3.5-5.1) mmol/L Chloride (98-107) mmol/L Carbon Dioxide (22-30) mmol/L Anion Gap mmol/L BUN (9-20) mg/dL Creatinine (0.66-1.25) mg/dL Est GFR (CKD-EPI)AfAm (>60 ml/min/1.73 sqM) Est GFR (CKD-EPI)NonAf (>60 ml/min/1.73 sqM) Glucose (74-99) mg/dL Estimated Ave Glu mg/dL Hemoglobin A1c (0.0-6.0) % Plasma Lactic Acid Torin 1.9 (0.7-2.0) mmol/L Calcium (8.4-10.2) mg/dL Magnesium (1.6-2.3) mg/dL Total Bilirubin (0.2-1.3) mg/dL AST (17-59) U/L ALT (4-49) U/L Alkaline Phosphatase (38-126) U/L Troponin I <0.012 (0.000-0.034) ng/mL Total Protein (6.3-8.2) g/dL Albumin (3.5-5.0) g/dL Coronavirus (PCR) (Not Detectd) Influenza Type A RNA Not Detected (Not Detectd) Influenza Type B (PCR) Not Detected (Not Detectd) 02/20/22 02/20/22 Range/Units 02:00 02:00 WBC (3.8-10.6) k/uL RBC (4.30-5.90) m/uL Hgb (13.0-17.5) gm/dL Hct (39.0-53.0) % MCV (80.0-100.0) fL MCH (25.0-35.0) pg MCHC (31.0-37.0) g/dL RDW (11.5-15.5) % Plt Count (150-450) k/uL MPV Neutrophils % % Lymphocytes % % Monocytes % % Eosinophils % % Basophils % % Neutrophils # (1.3-7.7) k/uL Lymphocytes # (1.0-4.8) k/uL Monocytes # (0-1.0) k/uL Eosinophils # (0-0.7) k/uL Basophils # (0-0.2) k/uL Manual Slide Review PT (9.0-12.0) sec INR (<1.2) APTT (22.0-30.0) sec Sodium (137-145) mmol/L Potassium (3.5-5.1) mmol/L Chloride (98-107) mmol/L Carbon Dioxide (22-30) mmol/L Anion Gap mmol/L BUN (9-20) mg/dL Creatinine (0.66-1.25) mg/dL Est GFR (CKD-EPI)AfAm (>60 ml/min/1.73 sqM) Est GFR (CKD-EPI)NonAf (>60 ml/min/1.73 sqM) Glucose (74-99) mg/dL Estimated Ave Glu mg/dL 149 Hemoglobin A1c 6.8 H (0.0-6.0) % Plasma Lactic Acid Torin (0.7-2.0) mmol/L Calcium (8.4-10.2) mg/dL Magnesium (1.6-2.3) mg/dL Total Bilirubin (0.2-1.3) mg/dL AST (17-59) U/L ALT (4-49) U/L Alkaline Phosphatase (38-126) U/L Troponin I (0.000-0.034) ng/mL Total Protein (6.3-8.2) g/dL Albumin (3.5-5.0) g/dL Coronavirus (PCR) Detected A (Not Detectd) Influenza Type A RNA (Not Detectd) Influenza Type B (PCR) (Not Detectd) Disposition Clinical Impression: Fall, Syncope, Chronic anticoagulation, COVID-19, Concussion, Hypomagnesemia Disposition: ADMITTED IP TO THIS [facility] Condition: Stable Is patient prescribed a controlled substance at d/c from ED?: No Time of Disposition: 03:42 Decision to Admit Reason: Admit from EC Decision Date: 02/20/22 Decision Time: 03:42
[2022-02-20] MEDS: SODIUM CHLORIDE 0.9% 1,000 ML IV SCH ×3 (04:17→20:03)
[2022-02-20] MEDS: ALBUTEROL HFA INHALER INHALATION SCH ×4 (07:17→20:19)
[2022-02-20] MEDS ORDERED: ALBUTEROL NEBULIZED 2.5 MG/3 ML INHALATION SCH (08:00)
[2022-02-20] MEDS: CLOPIDOGREL 75 MG TAB PO SCH (08:39)
[2022-02-20] MEDS: APIXABAN 5 MG TAB PO SCH ×2 (08:39→21:20)
[2022-02-20] MEDS: ZINC SULFATE 220 MG CAP PO SCH (08:53)
[2022-02-20] MEDS: CHOLECALCIFEROL 25 MCG (1000 IU) TABLET PO SCH (08:53)
[2022-02-20] MEDS: ASCORBIC ACID 500 MG TAB PO SCH (08:53)
[2022-02-20] MEDS ORDERED: DEXAMETHASONE SOD PHOSPHATE 10 MG/ML 1 ML VIAL IVP SCH (09:00)
--- NOTE | 2022-02-20 11:25 | P.CNPUL ---
History of Present Illness Consult date: 02/20/22 Requesting physician: Isaías Wei Reason for consult: dyspnea, cough, other (COVID-19 infection) Chief complaint: Syncope, fall History of present illness: This is a very pleasant 66-year-old male patient has a history of coronary artery disease with previous stent placement, atrial fibrillation with previous cardioversion, anticoagulated with Eliquis, ischemic cardiomyopathy, hypertension, hyperlipidemia, diabetes mellitus, prior smoking of approximately 15 years at 1 pack per day however quit in 1987, obesity, hypothyroidism. He presented here to the emergency room early this morning after getting up out of bed and have any syncope or near syncopal episode causing fall with injuries to his head right knee and left wrist. All of which were negative for fractures. He states he has been off balance the last several days. He has also been fighting a cold with sinus congestion and cough. His is also sick. He did test positive for COVID-19 here today. Influenza screen negative. White count 5.0. Hemoglobin 13.3. Lymphocytes 0.5. Sodium 132. Potassium 4.6. Bicarb 19. BUN 38. Creatinine 1.71. Glucose 126. Troponin negative 1. Chest x-ray reveals no acute cardiopulmonary process. Currently in sinus rhythm. He is seen today in consultation in the emergency department. He sitting up on the stretcher. Awake and alert in no acute distress. He is maintaining good O2 saturations in the upper 90s on room air. He's afebrile. Hemodynamically stable. He was initiated on Decadron. 0.9% normal saline at 75 ML's per hour. Review of Systems REVIEW OF SYSTEMS: CONSTITUTIONAL: Denies any recent significant weight loss or weight gain. EYES: Denies change in vision. EARS, NOSE, MOUTH, THROAT: Denies headaches, denies sore throat. CARDIOVASCULAR: Positive for syncope/near syncopal episode, denies chest pain, palpitations. RESPIRATORY: Positive for shortness of breath, cough, congestion no hemoptysis. GASTROINTESTINAL: Denies change in appetite, denies abdominal pain GENITOURINARY: Denies hematuria, denies infections. MUSKULOSKELETAL: Denies pain, denies swelling. INTEGUMENTARY: Denies rash, denies eczema. NEUROLOGICAL: Denies recent memory loss, no recent seizure activity. PSYCHIATRIC: Denies anxiety, denies depression. HEMATOLOGIC/LYMPHATIC: Denies anemia, denies enlarged lymph nodes. Past Medical History Past Medical History: Atrial Fibrillation, Coronary Artery Disease (CAD), Diabetes Mellitus, Hyperlipidemia, Hypertension, Thyroid Disorder Additional Past Medical History / Comment(s): kidney stones, New a-fib 02/08/2020, umbilical hernia, History of Any Multi-Drug Resistant Organisms: None Reported Past Surgical History: Heart Catheterization With Stent Additional Past Surgical History / Comment(s): kidney stones-cystoscopy, total 7 cardiac stents(last 4 on 02/08/20) Past Anesthesia/Blood Transfusion Reactions: No Reported Reaction Date of Last Stent Placement:: 02/08/20 Past Psychological History: Anxiety Smoking Status: Former smoker - Past Family History Father Family Medical History: Coronary Artery Disease (CAD) Additional Family Medical History / Comment(s): CABG Medications and Allergies Home Medications Medication Instructions Recorded Confirmed Type Aspirin EC [Ecotrin Low Dose] 81 mg PO HS 02/08/20 03/01/20 History Atorvastatin [Lipitor] 40 mg PO DAILY 02/08/20 03/01/20 History Cholecalciferol [Vitamin D3 (25 1,000 unit PO DAILY 02/08/20 03/01/20 History Mcg = 1000 Iu)] Clopidogrel [Plavix] 75 mg PO DAILY 02/08/20 03/01/20 History Doxazosin Mesylate 8 mg PO HS 02/08/20 03/01/20 History Empagliflozin [Jardiance] 10 mg PO DAILY 02/08/20 03/01/20 History Insulin Glargine,Hum.rec.anlog 70 unit SQ HS 02/08/20 03/01/20 History [Lantus Solostar Pen] Insulin Lispro [humaLOG Kwikpen] See Protocol SQ TID-W/MEALS 02/08/20 03/01/20 History L.acidoph,Paracasei, B.lactis 1 cap PO DAILY 02/08/20 03/01/20 History [Probiotic] Levothyroxine Sodium [Synthroid] 50 mcg PO DAILY 02/08/20 03/01/20 History Apixaban [Eliquis] 5 mg PO BID #60 tab 02/09/20 03/01/20 Rx Furosemide [Lasix] 20 mg PO BID #0 02/11/20 03/01/20 Rx Metoprolol Succinate (ER) [Toprol 50 mg PO BID #180 tab.er.24h 02/11/20 03/01/20 Rx XL] Nitroglycerin Sl Tabs [Nitrostat] 0.4 mg SUBLINGUAL Q5M PRN #25 tab 02/11/20 02/28/20 Rx Spironolactone [Aldactone] 25 mg PO DAILY #90 tab 02/11/20 03/01/20 Rx Amiodarone [Cordarone] 200 mg PO BID 02/28/20 03/01/20 History Benazepril HCl [Lotensin] 40 mg PO HS 02/28/20 03/01/20 History Allergies Allergy/AdvReac Type Severity Reaction Status Date / Time codeine AdvReac Nausea & Verified 03/01/20 06:26 Vomiting Physical Exam Vitals: Vital Signs Temp Pulse Resp BP Pulse Ox 02/20/22 07:20 97 02/20/22 03:00 64 16 111/57 98 02/20/22 02:00 65 16 109/59 98 02/20/22 01:07 98 F 64 16 115/59 98 Intake and Output 02/19/22 02/20/22 02/20/22 22:59 06:59 14:59 Other: Weight 122.47 kg GENERAL EXAM: Alert, very pleasant 66-year-old male patient, obese, on room air, comfortable in no apparent distress. HEAD: Normocephalic. EYES: Normal reaction of pupils, equal size. NOSE: Clear with pink turbinates. THROAT: No erythema or exudates. NECK: No masses, no JVD. CHEST: No chest wall deformity. LUNGS: Equal air entry with no crackles, wheeze, rhonchi or dullness. CVS: S1 and S2 normal with no audible murmur, regular rhythm. ABDOMEN: No hepatosplenomegaly, normal bowel sounds, no guarding or rigidity. SPINE: No scoliosis or deformity SKIN: No rashes CENTRAL NERVOUS SYSTEM: No focal deficits, tone is normal in all 4 extremities. EXTREMITIES: Abrasion over right knee and left wrist. There is no peripheral edema. No clubbing, no cyanosis. Peripheral pulses are intact. Results - Laboratory Findings CBC and BMP: 02/20/22 02:00 02/20/22 02:00 PT/INR, D-dimer PT 11.0 sec (9.0-12.0) 02/20/22 02:00 INR 1.0 (<1.2) 02/20/22 02:00 Abnormal lab findings: Abnormal Labs 02/20/22 02/20/22 02/20/22 02:00 02:00 02:00 Plt Count 68 L Lymphocytes # 0.5 L Sodium 132 L Carbon Dioxide 19 L BUN 38 H Creatinine 1.71 H Glucose 126 H Calcium 7.8 L Total Protein 5.8 L Coronavirus (PCR) Detected A - Diagnostic Findings Chest x-ray: image reviewed Assessment and Plan Assessment: Syncope/near syncopal episode with fall suspect secondary to orthostatic hypotension and dehydration Acute COVID-19 infection without evidence of COVID-19 pneumonia Acute renal failure secondary to above History of coronary disease with previous stent placement Ischemic cardiomyopathy with previous ejection fraction of 25-30 % in 2019 History of atrial fibrillation with previous cardioversion, adequately regulated with Eliquis Previous history of smoking for 15 years at 1 pack per day however quit in 1987 Morbid obesity Hypertension Hyperlipidemia Hypothyroidism Diabetes mellitus Plan: The patient was seen and evaluated Chest x-ray, medications and labs reviewed Patient is stable and on room air Discontinue Decadron Add vitamin supplements Gentle hydration Cardiology consulted We will continue to follow and make further recommendations based on his clinical status I have personally seen and examined the patient, performed the documentation and the assessment and plan as written. Number of minutes spent on the visit: 20.
[2022-02-20] MEDS: ACETAMINOPHEN TAB 325 MG TAB PO PRN (12:47)
[2022-02-20 12:55] LABS: Appearance,Urine Clear (Clear); Bilirubin,Urine Negative (Negative); Blood,Urine Negative (Negative); Color,Urine Yellow; Glucose,Urine (UA) 4+ (Negative); Ketones,Urine Negative (Negative); Leukocyte Esterase,Urine Negative (Negative); Nitrite,Urine Negative (Negative); Protein,Urine Trace (Negative); Specific Gravity,Urine 1.025 (1.001-1.035); Urobilinogen,Urine <2.0 mg/dL (<2.0)
[2022-02-20] MEDS ORDERED: DEXTROSE 50% SYRINGE 50 ML IVP PRN ×2 (13:25)
[2022-02-20] MEDS: AMIODARONE 100 MG TAB PO SCH (13:49)
[2022-02-20] MEDS: DAPAGLIFLOZIN PROPANEDIOL 5 MG TABLET PO SCH (13:49)
[2022-02-20] MEDS: VENLAFAXINE HCL ER 37.5 MG CAP PO SCH (13:49)
[2022-02-20] MEDS: METOPROLOL SUCCINATE (ER) 50 MG TAB.ER.24H PO SCH ×2 (13:49→21:20)
[2022-02-20 17:40] LABS: Glucose,Whole Blood 166 mg/dL (70-110)
[2022-02-20] MEDS: INSULIN ASPART (NovoLOG) 100 UNIT/ML VIAL SQ SCH ×2 (19:48→21:20)
[2022-02-20 21:12] LABS: Glucose,Whole Blood 154 mg/dL (70-110)
[2022-02-20] MEDS: INSULIN DETEMIR (LEVEMIR) 100 UNIT/ML SYR SQ SCH (21:21)
[2022-02-20] MEDS: DOXAZOSIN 4 MG TAB PO SCH (21:29)
[2022-02-21] MEDS: SODIUM CHLORIDE 0.9% 1,000 ML IV SCH ×3 (00:18→09:36)
[2022-02-21] MEDS: ACETAMINOPHEN TAB 325 MG TAB PO PRN ×2 (01:18→11:34)
[2022-02-21 06:27] LABS: Glucose,Whole Blood 105 mg/dL (70-110)
[2022-02-21] MEDS: INSULIN ASPART (NovoLOG) 100 UNIT/ML VIAL SQ SCH ×4 (06:29→21:05)
[2022-02-21] MEDS: LEVOTHYROXINE 50 MCG TAB PO SCH (06:36)
[2022-02-21] MEDS: VENLAFAXINE HCL ER 37.5 MG CAP PO SCH (08:13)
[2022-02-21] MEDS: ZINC SULFATE 220 MG CAP PO SCH (08:13)
[2022-02-21] MEDS: APIXABAN 5 MG TAB PO SCH ×2 (08:14→21:26)
[2022-02-21] MEDS: ATORVASTATIN 40 MG TAB PO SCH (08:14)
[2022-02-21] MEDS: CLOPIDOGREL 75 MG TAB PO SCH (08:15)
[2022-02-21] MEDS: ASCORBIC ACID 500 MG TAB PO SCH (08:15)
[2022-02-21] MEDS: CHOLECALCIFEROL 25 MCG (1000 IU) TABLET PO SCH (08:15)
[2022-02-21] MEDS: DAPAGLIFLOZIN PROPANEDIOL 5 MG TABLET PO SCH (08:16)
[2022-02-21] MEDS: METOPROLOL SUCCINATE (ER) 50 MG TAB.ER.24H PO SCH (08:17)
[2022-02-21] MEDS: dexAMETHasone 2 MG TAB PO SCH (08:17)
[2022-02-21] MEDS: ALBUTEROL HFA INHALER INHALATION SCH ×4 (08:27→20:10)
[2022-02-21] MEDS: LOPERAMIDE 2 MG CAP PO SCH ×2 (09:35→21:26)
[2022-02-21] MEDS: AMIODARONE 100 MG TAB PO SCH (09:35)
--- NOTE | 2022-02-21 09:58 | P.PN ---
Subjective Progress Note Date: 02/21/22 This is a very pleasant 66-year-old male patient has a history of coronary artery disease with previous stent placement, atrial fibrillation with previous cardioversion, anticoagulated with Eliquis, ischemic cardiomyopathy, hypertension, hyperlipidemia, diabetes mellitus, prior smoking of approximately 15 years at 1 pack per day however quit in 1987, obesity, hypothyroidism. He presented here to the emergency room early this morning after getting up out of bed and have any syncope or near syncopal episode causing fall with injuries to his head right knee and left wrist. All of which were negative for fractures. He states he has been off balance the last several days. He has also been fighting a cold with sinus congestion and cough. His is also sick. He did test positive for COVID-19 here today. Influenza screen negative. White count 5.0. Hemoglobin 13.3. Lymphocytes 0.5. Sodium 132. Potassium 4.6. Bicarb 19. BUN 38. Creatinine 1.71. Glucose 126. Troponin negative 1. Chest x-ray reveals no acute cardiopulmonary process. Currently in sinus rhythm. He is seen today in consultation in the emergency department. He sitting up on the stretcher. Awake and alert in no acute distress. He is maintaining good O2 saturations in the upper 90s on room air. He's afebrile. Hemodynamically stable. He was initiated on Decadron. 0.9% normal saline at 75 ML's per hour. The patient is seen today 02/21/2022 in follow-up on the regular medical floor. He is currently sitting up at the bedside. Awake and alert in no acute distress. No further episodes of syncope. No shortness of breath, cough or congestion. No chest pain or palpitations. Blood glucose 105. He remains on vitamin supplements. No need for Decadron as the patient is on room air oxygen. Anticoagulated with Eliquis. Objective - Vital Signs Vital signs: Vital Signs Temp 97.6 F 02/21/22 08:16 Pulse 68 02/21/22 08:16 Resp 20 02/21/22 08:16 BP 130/71 02/21/22 08:16 Pulse Ox 95 02/21/22 08:16 FiO2 Intake & Output 02/20/22 02/21/22 02/21/22 18:59 06:59 18:59 Weight 122.47 kg Other: # Voids 1 - Exam GENERAL EXAM: Alert, pleasant 66-year-old male patient, on room air, comfortable in no apparent distress. HEAD: Normocephalic. EYES: Normal reaction of pupils, equal size. NOSE: Clear with pink turbinates. THROAT: No erythema or exudates. NECK: No masses, no JVD. CHEST: No chest wall deformity. LUNGS: Equal air entry with no crackles, wheeze, rhonchi or dullness. CVS: S1 and S2 normal with no audible murmur, regular rhythm. ABDOMEN: No hepatosplenomegaly, normal bowel sounds, no guarding or rigidity. SPINE: No scoliosis or deformity SKIN: No rashes CENTRAL NERVOUS SYSTEM: No focal deficits, tone is normal in all 4 extremities. EXTREMITIES: Abrasion over right knee and left wrist. There is no peripheral edema. No clubbing, no cyanosis. Peripheral pulses are intact. - Labs CBC & Chem 7: 02/20/22 02:00 02/20/22 02:00 Labs: Abnormal Lab Results - Last 24 Hours (Table) 02/20/22 02/20/22 02/20/22 Range/Units 02:00 12:34 17:37 POC Glucose (mg/dL) 166 H (70-110) mg/dL Hemoglobin A1c 6.8 H (0.0-6.0) % Urine Protein Trace H (Negative) Urine Glucose (UA) 4+ H (Negative) 02/20/22 Range/Units 21:11 POC Glucose (mg/dL) 154 H (70-110) mg/dL Hemoglobin A1c (0.0-6.0) % Urine Protein (Negative) Urine Glucose (UA) (Negative) Assessment and Plan Assessment: Syncope/near syncopal episode with fall suspect secondary to orthostatic hypotension and dehydration Acute COVID-19 infection without evidence of COVID-19 pneumonia, stable and on room air. Acute renal failure secondary to above History of coronary disease with previous stent placement Ischemic cardiomyopathy with previous ejection fraction of 25-30 % in 2019 History of atrial fibrillation with previous cardioversion, adequately regulated with Eliquis Previous history of smoking for 15 years at 1 pack per day however quit in 1987 Morbid obesity Hypertension Hyperlipidemia Hypothyroidism Diabetes mellitus Plan: The patient was seen and evaluated Medications and labs reviewed Patient is stable and on room air Add vitamin supplements Cardiology consulted Cleared for discharge from the pulmonary standpoint I have personally seen and examined the patient, performed the documentation and the assessment and plan as written. Number of minutes spent on the visit: 10.
[2022-02-21 10:03] LABS: Anion Gap 11.2 mmol/L (10.00-18.00); BUN/Creat Ratio 20.87 Ratio (12.00-20.00); Blood Urea Nitrogen 31.3 mg/dL (9.0-27.0); Calcium 8.1 mg/dL (8.7-10.3); Carbon Dioxide 18.8 mmol/L (20.0-27.5); Magnesium 1.9 mg/dL (1.5-2.4); Non-African American GFR(CKD) 47.5 (60.0-200.0); Potassium 4.9 mmol/L (3.5-5.5)
[2022-02-21 10:23] LABS: Basophils # (A) 0.01 X 10*3/uL (0.00-0.10); Basophils % (A) 0.3 %; Eosinophils # (A) 0.02 X 10*3/uL (0.04-0.35); Eosinophils % (A) 0.6 %; HCT 39.2 % (39.6-50.0); HGB 12.2 g/dL (13.0-17.0); Immature Grans, Automated 0.6 %; Lymphocytes # (A) 0.68 X 10*3/uL (0.90-5.00); Lymphocytes % (A) 20.4 %; MCHC 31.1 g/dL (32.0-37.0); MCV 90.1 fL (80.0-97.0); Mean Platelet Volume 13.3 fL (9.5-12.2); Monocytes # (A) 0.38 X 10*3/uL (0.20-1.00); Monocytes % (A) 11.4 %; NRBC Per 100 WBC 0 /100 WBCS (0.0-0.0); Neutrophils # (A) 2.22 X 10*3/uL (1.80-7.70); Neutrophils % (A) 66.7 %; Platelet Count 60 X 10*3/uL (140-440); RBC 4.35 X 10*6/uL (4.40-5.60); RDW 13.5 % (11.5-14.5); WBC 3.33 X 10*3/uL (4.50-10.00)
--- NOTE | 2022-02-21 10:37 | P.CRDCN ---
History of Present Illness History of present illness: HISTORY OF PRESENTING ILLNESS This is a pleasant 66-year-old male past medical history significant for coronary artery disease status post PCI to the RCA and left circumflex in 2007, PCI of the proximal circumflex, mid RCA, distal RCA, proximal OM2 01/2020, ischemic cardiomyopathy, persistent atrial fibrillation status post cardioversion on 01/2020, hypertension, dyslipidemia, type 2 diabetes, former tobacco use, hypothyroidism. He follows in the office with Dr. Melgoza. We have been asked to see in consultation for Syncope. Patient presented to the ER 02/20/2022 with complaints of near syncopal episode and fall. He also has been having symptoms of nasal congestion, cough and fatigue. He was getting out of bed and ambulating to the bathroom. He states he fell, he is unsure if he loss consciousness initially but states he does not think he passed out, he remembers falling. He hit his head and right knee. Patient had increased weakness in his bilateral legs and was unable to get up, EMS was called. He states he has been having near syncopal episodes for the past 2 weeks. 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 He has not passed out with these episodes. He denies any chest pain, shortness of breath ,palpitations, incontinence of bladder/bowel, focal weakness, speech or hearing difficulties. He was found to be covid-19 positive and admitted for observation. Telemetry with no evidence of cardiac arrhythmia, he is maintaining sinus mechanism with HR 50s-60s. DIAGNOSTICS * EKG reveals sinus rhythm, left axis deviation, heart rate 66, no significant STT wave abnormalities suggest acute ischemia * Telemetry tracings indicate sinus rhythm with heart rates 5760s * Head and cervical spine CT reported no acute intracranial abnormality, mild cerebral atrophy, mild spondylitic changes in the lower cervical spine. * Echocardiogram in the office 03/2021 revealed EF 5560 percent, normal diastolic function, mild mitral regurgitation and mild tricuspid regurgitation * Knee x-ray and wrist xray reported negative for fracture * Chest xray no acute heart failure or consolidation noted. * Laboratory reviewed, troponin negative, sodium 136, potassium 4.9, BUN 31, serum creatinine 1.7 improved with IV fluids 1.5. Magnesium 1.9 * Current home cardiac medications include Plavix 75 mg daily, chart and stent milligrams daily, Synthroid, Zakiya the, Eliquis 5 mg twice a day, amiodarone 100 mg daily, atorvastatin 40 mg daily, spironolactone 12.5 mg daily, diazepam 40 mg nightly, Lasix 20 mg daily, insulin REVIEW OF SYSTEMS At the time of my exam: CONSTITUTIONAL: Denies fever or chills. +generalized fatigue , +near syncope CARDIOVASCULAR: Denies chest pain, shortness of breath, orthopnea, PND or palpitations. RESPIRATORY: +cough nasal congestion GASTROINTESTINAL: Denies abdominal pain, diarrhea, constipation, nausea or vomiting. MUSCULOSKELETAL: Denies myalgias. NEUROLOGIC: Denies numbness, tingling, headacbe or weakness. ENDOCRINE: Denies fatigue, weight change, polydipsia or polyurina. GENITOURINARY: Denies burning, hematuria or urgency with micturation. HEMATOLOGIC: Denies history of anemia or bleeding. PHYSICAL EXAMINATION Blood pressure 130/71, heart rate 68, afebrile, saturations 95% on room air Full examination not completed to limit covid-19 exposure CONSTITUTIONAL: No apparent distress. HEENT: No JVD. NEUROLOGIC EXAMINATION: Patient is awake, alert and oriented x3. ASSESSMENT Near syncopal episodes, rule out cardiac etiology Acute kidney injury, improved with IV Fluids Covid-19 infection Symptoms of cough, nasal congestion, generalized fatigue Persistent atrial fibrillation s/p cardioversion, on Eliquis Coronary artery disease s/p PCI to the RCA and left circumflex in 2007, PCI of the proximal circumflex, mid RCA, distal RCA, proximal OM2 01/2020 Ischemic cardiomyopathy, with improved EF Hypertension Dyslipidemia Type 2 Diabetes Former tobacco use Hypothyroidism Obesity PLAN From a cardiology perspective, near syncopal episodes could be vasovagal related to dehydration and current infection. Rule out any cardiac arrhythmia, no cardiac events on telemetry this admission. Decrease metoprolol succinate to 12.5mg daily Continue other cardiac medications with Eliquis, Plavix, aldactone, ACEI, statin. Recommend 30 day event monitor placement prior to discharge Follow up outpatient with Dr. Melgoza Nurse practitioner dictating consultation for Dr. Lopez, note has been reviewed by physician. Signing provider agrees with the documented findings, assessment, and plan of care. Past Medical History Past Medical History: Atrial Fibrillation, Coronary Artery Disease (CAD), Diabetes Mellitus, Hyperlipidemia, Hypertension, Thyroid Disorder Additional Past Medical History / Comment(s): kidney stones, New a-fib 02/08/2020, umbilical hernia, History of Any Multi-Drug Resistant Organisms: None Reported Past Surgical History: Heart Catheterization With Stent Additional Past Surgical History / Comment(s): kidney stones-cystoscopy, total 7 cardiac stents(last 4 on 02/08/20) Past Anesthesia/Blood Transfusion Reactions: No Reported Reaction Date of Last Stent Placement:: 02/08/20 Past Psychological History: Anxiety Additional Psychological History / Comment(s): over current health Smoking Status: Former smoker Past Alcohol Use History: None Reported Additional Past Alcohol Use History / Comment(s): quit smoking 01/18/1988, smoked since age 14 Past Drug Use History: None Reported - Past Family History Father Family Medical History: Coronary Artery Disease (CAD) Additional Family Medical History / Comment(s): CABG Medications and Allergies Home Medications Medication Instructions Recorded Confirmed Type Atorvastatin [Lipitor] 40 mg PO DAILY 02/08/20 02/20/22 History Clopidogrel [Plavix] 75 mg PO DAILY 02/08/20 02/20/22 History Doxazosin Mesylate 8 mg PO HS 02/08/20 02/20/22 History Empagliflozin [Jardiance] 10 mg PO DAILY 02/08/20 02/20/22 History Insulin Glargine,Hum.rec.anlog 33 unit SQ HS 02/08/20 02/20/22 History [Lantus Solostar Pen] Levothyroxine Sodium [Synthroid] 50 mcg PO DAILY 02/08/20 02/20/22 History Apixaban [Eliquis] 5 mg PO BID #60 tab 02/09/20 02/20/22 Rx Nitroglycerin Sl Tabs [Nitrostat] 0.4 mg SUBLINGUAL Q5M PRN #25 tab 02/11/20 02/20/22 Rx Benazepril HCl [Lotensin] 40 mg PO HS 02/28/20 02/20/22 History Amiodarone [Cordarone] 100 mg PO DAILY 02/20/22 02/20/22 History Cholecalciferol [Vitamin D3 (25 25 mcg PO DAILY 02/20/22 02/20/22 History Mcg = 1000 Iu)] Dulaglutide [Trulicity] 1.5 mg SQ LEE 02/20/22 02/20/22 History Furosemide [Lasix] 20 mg PO DAILY PRN 02/20/22 02/20/22 History Insulin Lispro [humaLOG Kwikpen] See Protocol SQ AC-TID 02/20/22 02/20/22 History Spironolactone [Aldactone] 12.5 mg PO DAILY 02/20/22 02/20/22 History Venlafaxine HCl ER [Effexor Xr] 37.5 mg PO DAILY 02/20/22 02/20/22 History Allergies Allergy/AdvReac Type Severity Reaction Status Date / Time codeine AdvReac Nausea & Verified 02/20/22 11:55 Vomiting Physical Exam Vitals: Vital Signs Temp Pulse Pulse Resp BP BP Pulse Ox 02/21/22 08:16 97.6 F 68 20 130/71 95 02/21/22 07:00 97.6 F 68 20 130/71 95 02/21/22 02:46 99.2 F 85 18 106/59 95 02/20/22 19:26 98.1 F 59 L 19 105/59 97 02/20/22 18:00 18 02/20/22 16:21 97.9 F 62 20 112/62 95 02/20/22 13:47 99.2 F 02/20/22 12:43 101.1 F H 74 117/59 95 Intake and Output 02/20/22 02/21/22 02/21/22 22:59 06:59 14:59 Other: # Voids 1 1 Weight 122.47 kg Results 02/21/22 05:31 02/21/22 05:31 Current Medications Generic Name Dose Route Start Last Admin Trade Name Freq PRN Reason Stop Dose Admin Acetaminophen 650 mg 02/20/22 03:42 02/21/22 01:18 Acetaminophen Tab 325 Mg Tab PO 650 mg Q6HR PRN Administration Mild Pain or Fever > 100.5 Albuterol Sulfate 2 puff 02/20/22 08:00 02/20/22 20:19 Albuterol Hfa Inhaler INHALATION 2 puff RT-QID FRANCISCA Administration Amiodarone HCl 100 mg 02/20/22 13:30 02/20/22 13:49 Amiodarone 100 Mg Tab PO 100 mg DAILY FRANCISCA Administration Apixaban 5 mg 02/20/22 09:00 02/21/22 08:14 Apixaban 5 Mg Tab PO 5 mg BID FRANCISCA Administration Protocol Ascorbic Acid 500 mg 02/20/22 09:00 02/21/22 08:15 Ascorbic Acid 500 Mg Tab PO 500 mg DAILY FRANCISCA Administration Atorvastatin Calcium 40 mg 02/21/22 09:00 02/21/22 08:14 Atorvastatin 40 Mg Tab PO 40 mg DAILY FRANCISCA Administration Cholecalciferol 25 mcg 02/20/22 09:00 02/21/22 08:15 Cholecalciferol 25 Mcg (1000 Iu) Tablet PO 25 mcg DAILY FRANCISCA Administration Clopidogrel Bisulfate 75 mg 02/20/22 09:00 02/21/22 08:15 Clopidogrel 75 Mg Tab PO 75 mg DAILY FRANCISCA Administration Dapagliflozin 5 mg 02/20/22 13:30 02/21/22 08:16 Dapagliflozin Propanediol 5 Mg Tablet PO 5 mg DAILY FRANCISCA Administration Dexamethasone 6 mg 02/21/22 09:00 02/21/22 08:17 Dexamethasone 2 Mg Tab PO 6 mg DAILY FRANCISCA Administration Dextrose/Water 25 ml 02/20/22 13:25 Dextrose 50% Syringe 50 Ml IVP PER PROTOCOL PRN Hypoglycemia Protocol Dextrose/Water 50 ml 02/20/22 13:25 Dextrose 50% Syringe 50 Ml IVP PER PROTOCOL PRN Hypoglycemia Protocol Doxazosin Mesylate 8 mg 02/20/22 21:00 02/20/22 21:29 Doxazosin 4 Mg Tab PO 8 mg HS FRANCISCA Administration Sodium Chloride 1,000 mls @ 100 mls/hr 02/20/22 03:45 02/21/22 00:18 Saline 0.9% IV Not Given .Q10H FRANCISCA Sodium Chloride 1,000 mls @ 100 mls/hr 02/20/22 16:00 02/21/22 01:25 Saline 0.9% IV Not Given .Q10H FRANCISCA Insulin Aspart 0 unit 02/20/22 17:30 02/21/22 06:29 Insulin Aspart (Novolog) 100 Unit/Ml Vial SQ Not Given ACHS [facility] Protocol Insulin Detemir 33 unit 02/20/22 21:00 02/20/22 21:21 Insulin Detemir (Levemir) 100 Unit/Ml Syr SQ 33 unit HS FRANCISCA Administration Levothyroxine Sodium 50 mcg 02/21/22 06:30 02/21/22 06:36 Levothyroxine 50 Mcg Tab PO 50 mcg 0630 FRANCISCA Administration Metoprolol Succinate 50 mg 02/20/22 13:30 02/21/22 08:17 Metoprolol Succinate (Er) 50 Mg Tab.Er.24h PO 50 mg BID FRANCISCA Administration Naloxone HCl 0.2 mg 02/20/22 03:42 Naloxone 0.4 Mg/Ml 1 Ml Vial IV Q2M PRN Opioid Reversal Venlafaxine HCl 37.5 mg 02/20/22 13:30 02/21/22 08:13 Venlafaxine Hcl Er 37.5 Mg Cap PO 37.5 mg DAILY FRANCISCA Administration Zinc Sulfate 220 mg 02/20/22 09:00 02/21/22 08:13 Zinc Sulfate 220 Mg Cap PO 220 mg DAILY FRANCISCA Administration Intake and Output 02/20/22 02/21/22 02/21/22 22:59 06:59 14:59 Other: # Voids 1 1 Weight 122.47 kg 02/20/22 02:00 02/20/22 02:00
[2022-02-21 12:29] LABS: Glucose,Whole Blood 181 mg/dL (70-110)
[2022-02-21 17:19] LABS: Glucose,Whole Blood 225 mg/dL (70-110)
[2022-02-21] MEDS ORDERED: INSULIN ASPART (NovoLOG) 100 UNIT/ML VIAL SQ ONE ×2 (18:20→21:04)
[2022-02-21 20:43] LABS: Glucose,Whole Blood 204 mg/dL (70-110)
[2022-02-21] MEDS: DOXAZOSIN 4 MG TAB PO SCH (21:26)
[2022-02-21] MEDS: INSULIN DETEMIR (LEVEMIR) 100 UNIT/ML SYR SQ SCH (21:27)
[2022-02-22] MEDS: LEVOTHYROXINE 50 MCG TAB PO SCH (06:07)
[2022-02-22] MEDS: INSULIN ASPART (NovoLOG) 100 UNIT/ML VIAL SQ SCH ×2 (06:49→15:34)
[2022-02-22 06:50] LABS: Glucose,Whole Blood 118 mg/dL (70-110)
[2022-02-22 07:54] VITALS: RESP 18
[2022-02-22] MEDS: ALBUTEROL HFA INHALER INHALATION SCH ×2 (08:35→12:16)
[2022-02-22] MEDS ORDERED: METOPROLOL TARTRATE 12.5 MG TAB PO SCH (09:00)
--- NOTE | 2022-02-22 09:34 | P.PN ---
Subjective This is a pleasant 66-year-old male past medical history significant for coronary artery disease status post PCI to the RCA and left circumflex in 2007, PCI of the proximal circumflex, mid RCA, distal RCA, proximal OM2 01/2020, ischemic cardiomyopathy, persistent atrial fibrillation status post cardioversion on 01/2020, hypertension, dyslipidemia, type 2 diabetes, former tobacco use, hypothyroidism. He follows in the office with Dr. Melgoza. We have been asked to see in consultation for Syncope. Patient presented to the ER 02/20/2022 with complaints of near syncopal episode and fall. He also has been having symptoms of nasal congestion, cough and fatigue. He was getting out of bed and ambulating to the bathroom. He states he fell, he is unsure if he loss consciousness initially but states he does not think he passed out, he remembers falling. He hit his head and right knee. Patient had increased weakness in his bilateral legs and was unable to get up, EMS was called. He states he has been having near syncopal episodes for the past 2 weeks. 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 He has not passed out with these episodes. He denies any chest pain, shortness of breath ,palpitations, incontinence of bladder/bowel, focal weakness, speech or hearing difficulties. He was found to be covid-19 positive and admitted for observation. Telemetry with no evidence of cardiac arrhythmia, he is maintaining sinus mechanism with HR 50s-60s. 02/22 Patient seen and examined at bedside, no acute distress. Telemetry revealed sinus mechanism with heart rates 4460s, majority of heart rates in the 40s have been overnight while patient sleeping. His event monitor has been placed. His amiodarone and metoprolol succinate was discontinued. PHYSICAL EXAMINATION Blood pressure 137/82, heart 61, afebrile, oxygen saturations 98% on room air Full examination not completed to limit covid-19 exposure CONSTITUTIONAL: No apparent distress. HEENT: No JVD. NEUROLOGIC EXAMINATION: Patient is awake, alert and oriented x3. ASSESSMENT Near syncopal episodes, rule out cardiac etiology Acute kidney injury, improved with IV Fluids Covid-19 infection Symptoms of cough, nasal congestion, generalized fatigue Persistent atrial fibrillation s/p cardioversion, on Eliquis Coronary artery disease s/p PCI to the RCA and left circumflex in 2007, PCI of t he proximal circumflex, mid RCA, distal RCA, proximal OM2 01/2020 Ischemic cardiomyopathy, with improved EF Hypertension Dyslipidemia Type 2 Diabetes Former tobacco use Hypothyroidism Obesity PLAN From a cardiology perspective, near syncopal episodes could be vasovagal related to dehydration and current infection. Rule out any cardiac arrhythmia, no cardiac events on telemetry this admission. Decrease metoprolol tartrate 12.5mg daily, start tomorrow Stop Amiodarone Continue other cardiac medications with Eliquis, Plavix, aldactone, ACEI, statin. Recommend 30 day event monitor placement prior to discharge We will follow the patient as needed. Follow up outpatient with Dr. Melgoza Nurse practitioner dictating consultation for Dr. Lopez, note has been reviewed by physician. Signing provider agrees with the documented findings, assessment, and plan of care. Objective - Vital Signs Vital signs: Vital Signs Temp 97.6 F 02/22/22 07:00 Pulse 61 02/22/22 07:00 Resp 18 02/22/22 07:00 BP 137/82 02/22/22 07:00 Pulse Ox 98 02/22/22 07:00 FiO2 Intake & Output 02/21/22 02/22/22 02/22/22 18:59 06:59 18:59 Intake Total 220 Output Total 600 500 Balance -600 -280 Intake: Oral 220 Output: Urine 600 500 Other: # Voids 2 2 - Labs CBC & Chem 7: 02/21/22 05:31 02/21/22 05:31 Labs: Abnormal Lab Results - Last 24 Hours (Table) 02/21/22 02/21/22 02/21/22 Range/Units 05:31 05:31 12:23 WBC 3.33 L (4.50-10.00) X 10*3/uL RBC 4.35 L (4.40-5.60) X 10*6/uL Hgb 12.2 L (13.0-17.0) g/dL Hct 39.2 L (39.6-50.0) % MCHC 31.1 L (32.0-37.0) g/dL Plt Count 60 L (140-440) X 10*3/uL MPV 13.3 H (9.5-12.2) fL Lymphocytes # 0.68 L (0.90-5.00) X 10*3/uL Eosinophils # 0.02 L (0.04-0.35) X 10*3/uL Immature Plt Fraction 11.0 H (1.1-6.1) % Carbon Dioxide 18.8 L (20.0-27.5) mmol/L BUN 31.3 H (9.0-27.0) mg/dL Est GFR (CKD-EPI)AfAm 55.0 L (60.0-200.0) Est GFR (CKD-EPI)NonAf 47.5 L (60.0-200.0) BUN/Creatinine Ratio 20.87 H (12.00-20.00) Ratio POC Glucose (mg/dL) 181 H (70-110) mg/dL Calcium 8.1 L (8.7-10.3) mg/dL 02/21/22 02/21/22 02/22/22 Range/Units 17:11 20:41 06:48 WBC (4.50-10.00) X 10*3/uL RBC (4.40-5.60) X 10*6/uL Hgb (13.0-17.0) g/dL Hct (39.6-50.0) % MCHC (32.0-37.0) g/dL Plt Count (140-440) X 10*3/uL MPV (9.5-12.2) fL Lymphocytes # (0.90-5.00) X 10*3/uL Eosinophils # (0.04-0.35) X 10*3/uL Immature Plt Fraction (1.1-6.1) % Carbon Dioxide (20.0-27.5) mmol/L BUN (9.0-27.0) mg/dL Est GFR (CKD-EPI)AfAm (60.0-200.0) Est GFR (CKD-EPI)NonAf (60.0-200.0) BUN/Creatinine Ratio (12.00-20.00) Ratio POC Glucose (mg/dL) 225 H 204 H 118 H (70-110) mg/dL Calcium (8.7-10.3) mg/dL
[2022-02-22] MEDS: LOPERAMIDE 2 MG CAP PO SCH (09:54)
[2022-02-22] MEDS: APIXABAN 5 MG TAB PO SCH (09:54)
[2022-02-22] MEDS: dexAMETHasone 2 MG TAB PO SCH (09:54)
[2022-02-22] MEDS: ASCORBIC ACID 500 MG TAB PO SCH (09:55)
[2022-02-22] MEDS: CHOLECALCIFEROL 25 MCG (1000 IU) TABLET PO SCH (09:55)
[2022-02-22] MEDS: CLOPIDOGREL 75 MG TAB PO SCH (09:56)
[2022-02-22] MEDS: ATORVASTATIN 40 MG TAB PO SCH (09:56)
[2022-02-22] MEDS: ZINC SULFATE 220 MG CAP PO SCH (09:56)
[2022-02-22] MEDS: DAPAGLIFLOZIN PROPANEDIOL 5 MG TABLET PO SCH (09:58)
[2022-02-22] MEDS: VENLAFAXINE HCL ER 37.5 MG CAP PO SCH (09:58)
--- NOTE | 2022-02-22 11:22 | P.PN ---
Subjective Progress Note Date: 02/22/22 This is a very pleasant 66-year-old male patient has a history of coronary artery disease with previous stent placement, atrial fibrillation with previous cardioversion, anticoagulated with Eliquis, ischemic cardiomyopathy, hypertension, hyperlipidemia, diabetes mellitus, prior smoking of approximately 15 years at 1 pack per day however quit in 1987, obesity, hypothyroidism. He presented here to the emergency room early this morning after getting up out of bed and have any syncope or near syncopal episode causing fall with injuries to his head right knee and left wrist. All of which were negative for fractures. He states he has been off balance the last several days. He has also been fighting a cold with sinus congestion and cough. His is also sick. He did test positive for COVID-19 here today. Influenza screen negative. White count 5.0. Hemoglobin 13.3. Lymphocytes 0.5. Sodium 132. Potassium 4.6. Bicarb 19. BUN 38. Creatinine 1.71. Glucose 126. Troponin negative 1. Chest x-ray reveals no acute cardiopulmonary process. Currently in sinus rhythm. He is seen today in consultation in the emergency department. He sitting up on the stretcher. Awake and alert in no acute distress. He is maintaining good O2 saturations in the upper 90s on room air. He's afebrile. Hemodynamically stable. He was initiated on Decadron. 0.9% normal saline at 75 ML's per hour. The patient is seen today 02/21/2022 in follow-up on the regular medical floor. He is currently sitting up at the bedside. Awake and alert in no acute distress. No further episodes of syncope. No shortness of breath, cough or congestion. No chest pain or palpitations. Blood glucose 105. He remains on vitamin supplements. No need for Decadron as the patient is on room air oxygen. Anticoagulated with Eliquis. The patient is seen today 02/22/2022 in follow-up on the regular medical floor. Sitting up in bed. Awake and alert in no acute distress. Maintaining good O2 saturations in the 90s on room air. No further syncopal episodes. He's been hemodynamically stable. Afebrile. Glucose 118. Remains anticoagulated with Eliquis. Continued on Decadron and vitamin supplements. Objective - Vital Signs Vital signs: Vital Signs Temp 97.6 F 02/22/22 07:00 Pulse 61 02/22/22 07:00 Resp 18 02/22/22 07:00 BP 137/82 02/22/22 07:00 Pulse Ox 98 02/22/22 07:00 FiO2 Intake & Output 02/21/22 02/22/22 02/22/22 18:59 06:59 18:59 Intake Total 220 Output Total 600 500 Balance -600 -280 Intake: Oral 220 Output: Urine 600 500 Other: # Voids 2 2 - Exam GENERAL EXAM: Alert, 66-year-old male patient, on room air, comfortable in no apparent distress. HEAD: Normocephalic. EYES: Normal reaction of pupils, equal size. NOSE: Clear with pink turbinates. THROAT: No erythema or exudates. NECK: No masses, no JVD. CHEST: No chest wall deformity. LUNGS: Equal air entry with no crackles, wheeze, rhonchi or dullness. CVS: S1 and S2 normal with no audible murmur, regular rhythm. ABDOMEN: No hepatosplenomegaly, normal bowel sounds, no guarding or rigidity. SPINE: No scoliosis or deformity SKIN: No rashes CENTRAL NERVOUS SYSTEM: No focal deficits, tone is normal in all 4 extremities. EXTREMITIES: Abrasion over right knee and left wrist. There is no peripheral edema. No clubbing, no cyanosis. Peripheral pulses are intact. - Labs CBC & Chem 7: 02/21/22 05:31 02/21/22 05:31 Labs: Abnormal Lab Results - Last 24 Hours (Table) 02/21/22 02/21/22 02/21/22 Range/Units 12:23 17:11 20:41 POC Glucose (mg/dL) 181 H 225 H 204 H (70-110) mg/dL 02/22/22 Range/Units 06:48 POC Glucose (mg/dL) 118 H (70-110) mg/dL Assessment and Plan Assessment: Syncope/near syncopal episode with fall suspect secondary to orthostatic hypotension and dehydration Acute COVID-19 infection without evidence of COVID-19 pneumonia, stable and on room air. Acute renal failure secondary to above History of coronary disease with previous stent placement Ischemic cardiomyopathy with previous ejection fraction of 25-30 % in 2019 History of atrial fibrillation with previous cardioversion, adequately regulated with Eliquis Previous history of smoking for 15 years at 1 pack per day however quit in 1987 Morbid obesity Hypertension Hyperlipidemia Hypothyroidism Diabetes mellitus Plan: The patient was seen and evaluated Patient is stable and on room air Cleared for discharge from the pulmonary standpoint I have personally seen and examined the patient, performed the documentation and the assessment and plan as written. Number of minutes spent on the visit: 10.
[2022-02-22 12:34] LABS: Glucose,Whole Blood 166 mg/dL (70-110)
[2022-02-22 14:06] VITALS: BP 144/67; PULSE 70; TEMP 98.1
[2022-02-23] MEDS ORDERED: METOPROLOL TARTRATE 12.5 MG TAB PO SCH ×2 (09:00)
--- NOTE | 2022-02-23 15:41 | P.HPIM ---
History of Present Illness H&P Date: 02/20/22 Chief Complaint: Fall/weakness/COVID-19 HISTORY OF PRESENT ILLNESS: This is a 66-year-old male with a previous medical history significant for coronary artery disease status post PCI of the distal RCA back in 2007, history of the 95% stenosis of the proximal LCx, and 80% stenosis of the proximal obtuse marginal branch 2 status post PCI with Dr. Melgoza in January 2020, chronic atrial fibrillation status post DC cardioversion, hypertension and hypertensive perivascular disease, hyperlipidemia, diabetes mellitus type 2 is requiring, history of enlarged prostate, history of obesity, patient presented to the emergency department at [facility] after he had recurrent syncopal episode after he sustained a COVID-19 infection and he was not able to keep anything down with increase abdominal pain associated with nausea vomiting and diarrhea patient had fallen at home and he could not get up because his legs were extremely shaky, he came to the ER and he was given IV fluid resuscitation, and also did have a computed tomography scan of the head and neck that showed no evidence of acute abnormalities except for spondylosis of the cervical spine, he had an x-ray of the right knee that was negative for acute fracture he had an x- ray of the wrist that showed evidence of osteophytes of the base of the thumb, patient was admitted to the hospital he was started on IV Decadron 6 mg 1, he was placed on zinc sulfate 50 mg once every day as well as vitamin D, vitamin C, he was seen in consultation by pulmonary medicine as well as by cardiology, and he was admitted to the hospital for observation. REVIEW OF SYSTEMS: Constitutional: No documented fever, no chills, no night sweats. No weight change. No weakness, fatigue or lethargy. No daytime sleepiness. HEENT: No headache. No blurred vision or double vision, no loss of vision. No loss of Hearing, no ringing in the ears, no dizziness. No nasal drainage or congestion. No epistaxis. No sore throat. Lungs: No shortness of breath, no cough, no sputum production. No wheezing. Reports dyspnea with activity. Cardiovascular: No chest pain, no lower extremity edema. No palpitations. No paroxysmal nocturnal dyspnea. No orthopnea. No lightheadedness or dizziness. No syncopal episodes. Abdominal: Reports abdominal pain. positive for nausea, vomiting. positive for diarrhea. No constipation. No bloody or tarry stools reports loss of appetite. Genitourinary: No dysuria, increased frequency, urgency. No urinary retention. Musculoskeletal: No myalgias. generalized weakness, no gait dysfunction, few falls before he came due to weakness, positive for back and nek pain Integumentary: No wounds, no lesions. No rash or pruritus. No unusual bruising. No change in hair or nails. Neurologic: No aphasia. No facial droop. No change in mentation. No head injury. No headache. No paralysis. No paresthesia. Psychiatric: No depression. No anxiety. No mood swings. Endocrine: No abnormal blood sugars. No weight change. PAST MEDICAL HISTORY: CAD post-PCI of the RCA, LCx, and obtuse marginal branch 2. Atrial fibrillation status post cardioversion. Ischemic cardiomyopathy. Hypertension and hypertensive cardio vascular disease. Hyperlipidemia. Diabetes mellitus type 2. Obesity. Enlarged prostate. Mitral regurgitation. Tricuspid regurgitation. Hypothyroidism. Anxiety. Chronic kidney disease stage 3a. PAST SURGICAL HISTORY: Left heart catheterization with PCI of the RCA in 2007 Left heart catheterization with PCI of the LCx and OM 2 in 2019 Transesophageal echocardiogram with DC cardioversion SOCIAL HISTORY: Patient used to smoke about pack every day since he was 14-year-old, and he quit smoking 01/18/1988, he denies any alcohol ingestion, he denies any drug use or abuse. FAMILY HISTORY: Father from coronary artery disease status post CABG. PHYSICAL EXAMINATION: General: 66-year-old male sitting up in bed in no apparent distress. HEENT: Head is atraumatic, normocephalic, pupils were equal round reactive to light and recommendation, extraocular muscle movement were intact, sclera nonicteric, conjunctivae were pale, mucous membranes of the mouth are somewhat dry. Neck: Supple, no JVP, normal carotid upstroke bilaterally, no lymphadenopathy. Chest: Decreased breath sounds at the bases, few rhonchi, no expiratory wheezes, no chest wall tenderness, no intercostal retractions. Heart: First heart sound is normal, second heart sounds normal there is no gallop, there is systolic ejection murmur 2/6 located in the left sternal borde r. Abdomen: Soft, nontender, nondistended, positive bowel sounds. Extremities: There is no edema no calf tenderness DP +2 bilaterally. Neurologic examination: Patient is awake alert and oriented X3 , cranial nerves II-12 appear grossly intact, muscle power were 5 out of 5 in upper extremities and 5 out of 5 in bilateral lower extremities, deep tendon reflexes normal bilaterally. ASSESSMENT AND PLAN: 1. Syncope likely related to vasovagal reaction due to gastrointestinal fluid loss. Patient did receive IV fluid in the form of normal saline 2 L in the emergency department current currently on 50 mL an hour monitor the patient's symptoms very closely as the patient has ischemic cardiomyopathy, monitor the patient very closely cardiology consultation was obtained. 2. COVID-19 infection without pneumonia, but with GI involvement. Patient was started on Decadron 6 mg orally once every day, continue zinc sulfate 50 mg once every day, vitamin D, vitamin C, use albuterol HFA 2 puffs inhalation every 4 hours as needed. No indication for any pneumonia and a chest x-ray, we will continue with Loperamide 2 mg orally bid as needed 3. Coronary artery disease status post PCI of the RCA/LCx/OM2. Continue patient on Plavix 75 continue metoprolol 12.5 mg orally once every day, atorvastatin 40 mg orally once every day, monitor the patient's symptoms very closely cardiology consultation appreciated. 4. Hypertension and hypertensive cardiovascular disease. Continue metoprolol 12.5 mg orally once every day, Lotensin 40 mg orally bedtime. Monitor the patient blood pressure a closely. 5. Hyperlipidemia. Continue patient on atorvastatin 40 mg once every day, monitor lipid panel, keep LDL 55-70. 6. Diabetes mellitus type 2. Continue Lantus 33 units at bedtime, continue Jardiance 10 mg orally once every day, continue Trulicity 1.5 mg Subcutaneously once every week, continue sliding scale insulin. 7. Enlarged prostate. Continue doxazosin 8 mg once every day. 8. Paroxysmal atrial fibrillation. Continue patient on Eliquis 5 mg orally twice every day and Metoprolol 12.5 mg orally daily. 9. Anxiety disorder. Continue patient on venlafaxine 37.5 mg once every day. 10. Ischemic cardiopathy. Spironolactone as well as Lasix were put on hold due to his acute kidney injury. 11. Acute kidney injury on chronic kidney disease 3a. Continue IV fluid resuscitation at 50 mL an hour, monitor the patient input and output and daily weight hold Lasix and spironolactone for the next 24 hours. Monitor the patient CMP, avoid nephrotoxins. 12. DVT prophylaxis. Currently on Eliquis 5 mg orally bid. 13. GI prophyalxis . we will continue with PPI. 14. Observation. 15. Full code. Past Medical History Past Medical History: Atrial Fibrillation, Coronary Artery Disease (CAD), Diabetes Mellitus, Hyperlipidemia, Hypertension, Thyroid Disorder Additional Past Medical History / Comment(s): kidney stones, New a-fib 02/08/2020, umbilical hernia, History of Any Multi-Drug Resistant Organisms: None Reported Past Surgical History: Heart Catheterization With Stent Additional Past Surgical History / Comment(s): kidney stones-cystoscopy, total 7 cardiac stents(last 4 on 02/08/20) Past Anesthesia/Blood Transfusion Reactions: No Reported Reaction Date of Last Stent Placement:: 02/08/20 Past Psychological History: Anxiety Additional Psychological History / Comment(s): over current health Smoking Status: Former smoker Past Alcohol Use History: None Reported Additional Past Alcohol Use History / Comment(s): quit smoking 01/18/1988, smoked since age 14 Past Drug Use History: None Reported - Past Family History Father Family Medical History: Coronary Artery Disease (CAD) Additional Family Medical History / Comment(s): CABG Medications and Allergies Home Medications Medication Instructions Recorded Confirmed Type Atorvastatin [Lipitor] 40 mg PO DAILY 02/08/20 02/20/22 History Clopidogrel [Plavix] 75 mg PO DAILY 02/08/20 02/20/22 History Doxazosin Mesylate 8 mg PO HS 02/08/20 02/20/22 History Empagliflozin [Jardiance] 10 mg PO DAILY 02/08/20 02/20/22 History Insulin Glargine,Hum.rec.anlog 33 unit SQ HS 02/08/20 02/20/22 History [Lantus Solostar Pen] Levothyroxine Sodium [Synthroid] 50 mcg PO DAILY 02/08/20 02/20/22 History Apixaban [Eliquis] 5 mg PO BID #60 tab 02/09/20 02/20/22 Rx Nitroglycerin Sl Tabs [Nitrostat] 0.4 mg SUBLINGUAL Q5M PRN #25 tab 02/11/20 Rx Benazepril HCl [Lotensin] 40 mg PO HS 02/28/20 02/20/22 History Cholecalciferol [Vitamin D3 (25 25 mcg PO DAILY 02/20/22 02/20/22 History Mcg = 1000 Iu)] Dulaglutide [Trulicity] 1.5 mg SQ LEE 02/20/22 02/20/22 History Furosemide [Lasix] 20 mg PO DAILY PRN 02/20/22 02/20/22 History Insulin Lispro [humaLOG Kwikpen] See Protocol SQ AC-TID 02/20/22 02/20/22 History Spironolactone [Aldactone] 12.5 mg PO DAILY 02/20/22 02/20/22 History Venlafaxine HCl ER [Effexor XR] 37.5 mg PO DAILY 02/20/22 02/20/22 History Metoprolol Tartrate [Lopressor] 12.5 mg PO DAILY #30 tab 02/22/22 Rx Zinc Sulfate [Orazinc] 220 mg PO DAILY #30 cap 02/22/22 Rx dexAMETHasone ORAL [Hexadrol] 6 mg PO DAILY #7 tab 02/22/22 Rx Allergies Allergy/AdvReac Type Severity Reaction Status Date / Time codeine AdvReac Nausea & Verified 02/20/22 11:55 Vomiting Physical Exam Vitals: Vital Signs Temp Pulse Resp BP Pulse Ox 02/21/22 15:00 98.1 F 60 20 126/69 96 02/21/22 08:16 97.6 F 68 20 130/71 95 02/21/22 07:00 97.6 F 68 20 130/71 95 02/21/22 02:46 99.2 F 85 18 106/59 95 02/20/22 19:26 98.1 F 59 L 19 105/59 97 Intake and Output 02/21/22 02/21/22 02/21/22 06:59 14:59 22:59 Other: # Voids 1 2 Results CBC & Chem 7: 02/21/22 05:31 02/21/22 05:31 Labs: Abnormal Lab Results - Last 24 Hours (Table) 02/20/22 02/20/22 02/21/22 Range/Units 02:00 21:11 05:31 WBC 3.33 L (4.50-10.00) X 10*3/uL RBC 4.35 L (4.40-5.60) X 10*6/uL Hgb 12.2 L (13.0-17.0) g/dL Hct 39.2 L (39.6-50.0) % MCHC 31.1 L (32.0-37.0) g/dL Plt Count 60 L (140-440) X 10*3/uL MPV 13.3 H (9.5-12.2) fL Lymphocytes # 0.68 L (0.90-5.00) X 10*3/uL Eosinophils # 0.02 L (0.04-0.35) X 10*3/uL Immature Plt Fraction 11.0 H (1.1-6.1) % Carbon Dioxide (20.0-27.5) mmol/L BUN (9.0-27.0) mg/dL Est GFR (CKD-EPI)AfAm (60.0-200.0) Est GFR (CKD-EPI)NonAf (60.0-200.0) BUN/Creatinine Ratio (12.00-20.00) Ratio POC Glucose (mg/dL) 154 H (70-110) mg/dL Hemoglobin A1c 6.8 H (0.0-6.0) % Calcium (8.7-10.3) mg/dL 02/21/22 02/21/22 02/21/22 Range/Units 05:31 12:23 17:11 WBC (4.50-10.00) X 10*3/uL RBC (4.40-5.60) X 10*6/uL Hgb (13.0-17.0) g/dL Hct (39.6-50.0) % MCHC (32.0-37.0) g/dL Plt Count (140-440) X 10*3/uL MPV (9.5-12.2) fL Lymphocytes # (0.90-5.00) X 10*3/uL Eosinophils # (0.04-0.35) X 10*3/uL Immature Plt Fraction (1.1-6.1) % Carbon Dioxide 18.8 L (20.0-27.5) mmol/L BUN 31.3 H (9.0-27.0) mg/dL Est GFR (CKD-EPI)AfAm 55.0 L (60.0-200.0) Est GFR (CKD-EPI)NonAf 47.5 L (60.0-200.0) BUN/Creatinine Ratio 20.87 H (12.00-20.00) Ratio POC Glucose (mg/dL) 181 H 225 H (70-110) mg/dL Hemoglobin A1c (0.0-6.0) % Calcium 8.1 L (8.7-10.3) mg/dL Thrombosis Risk Factor Assmnt - Choose All That Apply Any of the Below Risk Factors Present?: Yes Each Factor Represents 1 point: Abnormal pulmonary function (COPD) Other Risk Factors: Yes Each Risk Factor Represents 2 Points: Age 61-74 years Other congenital or acquired thrombophilia - If yes, enter type in comment: No Thrombosis Risk Factor Assessment Total Risk Factor Score: 3 Thrombosis Risk Factor Assessment Level: Moderate Risk
--- NOTE | 2022-02-23 15:46 | P.PN ---
Subjective Progress Note Date: 02/21/22 HISTORY OF PRESENT ILLNESS: This is a 66-year-old male with a previous medical history significant for coronary artery disease status post PCI of the distal RCA back in 2007, history of the 95% stenosis of the proximal LCx, and 80% stenosis of the proximal obtuse marginal branch 2 status post PCI with Dr. Melgoza in January 2020, chronic atrial fibrillation status post DC cardioversion, hypertension and hypertensive perivascular disease, hyperlipidemia, diabetes mellitus type 2 is requiring, history of enlarged prostate, history of obesity, patient presented to the emergency department at [facility] after he had recurrent syncopal episode after he sustained a COVID-19 infection and he was not able to keep anything down with increase abdominal pain associated with nausea vomiting and diarrhea patient had fallen at home and he could not get up because his legs were extremely shaky, he came to the ER and he was given IV fluid resuscitation, and also did have a computed tomography scan of the head and neck that showed no evidence of acute abnormalities except for spondylosis of the cervical spine, he had an x-ray of the right knee that was negative for acute fracture he had an x- ray of the wrist that showed evidence of osteophytes of the base of the thumb, patient was admitted to the hospital he was started on IV Decadron 6 mg 1, he was placed on zinc sulfate 50 mg once every day as well as vitamin D, vitamin C, he was seen in consultation by pulmonary medicine as well as by cardiology, and he was admitted to the hospital for observation. 02/21: Patient is sitting up in bed is feeling better, still somewhat weak, continues to have diarrhea, appetite is well, we will continue to monitor for the next 24 hours then he will be discharged home, patient respiratory status has been stable, without evidence of any acute issues at this point an patient is so peculiar about his insulin regimen and he takes 10 % of his BGM as far as SSI, we will continue to monitor the patient well REVIEW OF SYSTEMS: Constitutional: No documented fever, no chills, no night sweats. No weight change. No weakness, fatigue or lethargy. No daytime sleepiness. HEENT: No headache. No blurred vision or double vision, no loss of vision. No loss of Hearing, no ringing in the ears, no dizziness. No nasal drainage or congestion. No epistaxis. No sore throat. Lungs: No shortness of breath, no cough, no sputum production. No wheezing. Reports dyspnea with activity. Cardiovascular: No chest pain, no lower extremity edema. No palpitations. No paroxysmal nocturnal dyspnea. No orthopnea. No lightheadedness or dizziness. No syncopal episodes. Abdominal: Reports abdominal pain. positive for nausea, vomiting. positive for diarrhea. No constipation. No bloody or tarry stools reports loss of appetite. Genitourinary: No dysuria, increased frequency, urgency. No urinary retention. Musculoskeletal: No myalgias. generalized muscle weakness, no gait dysfunction, had fallen before he came, neck pain and lower back pain Integumentary: No wounds, no lesions. No rash or pruritus. No unusual bruising. No change in hair or nails. Neurologic: No aphasia. No facial droop. No change in mentation. No head injury. No headache. No paralysis. No paresthesia. Psychiatric: No depression. positive for anxiety. No mood swings. Endocrine: No abnormal blood sugars. No weight change. PHYSICAL EXAMINATION: General: 66-year-old male sitting up in bed in no apparent distress. HEENT: Head is atraumatic, normocephalic, pupils were equal round reactive to l ight and recommendation, extraocular muscle movement were intact, sclera nonicteric, conjunctivae were pale, mucous membranes of the mouth are somewhat dry. Neck: Supple, no JVP, normal carotid upstroke bilaterally, no lymphadenopathy. Chest: Decreased breath sounds at the bases, few rhonchi, no expiratory wheezes, no chest wall tenderness, no intercostal retractions. Heart: First heart sound is normal, second heart sounds normal there is no gallop, there is systolic ejection murmur 2/6 located in the left sternal border. Abdomen: Soft, nontender, nondistended, positive bowel sounds. Extremities: There is no edema no calf tenderness DP +2 bilaterally. Neurologic examination: Patient is awake alert and oriented X3 , cranial nerves II-12 appear grossly intact, muscle power were 5 out of 5 in upper extremities and 5 out of 5 in bilateral lower extremities, deep tendon reflexes normal bilaterally. ASSESSMENT AND PLAN: 1. Syncope likely related to vasovagal reaction due to gastrointestinal fluid loss. Patient did receive IV fluid in the form of normal saline 2 L in the emergency department current currently on 50 mL an hour monitor the patient's symptoms very closely as the patient has ischemic cardiomyopathy, monitor the patient very closely cardiology consultation was obtained. 2. COVID-19 infection without pneumonia, but with GI involvement. Patient was started on Decadron 6 mg orally once every day, continue zinc sulfate 50 mg once every day, vitamin D, vitamin C, use albuterol HFA 2 puffs inhalation every 4 hours as needed. No indication for any pneumonia and a chest x-ray, we will continue with Loperamide 2 mg orally bid as needed 3. Coronary artery disease status post PCI of the RCA/LCx/OM2. Continue patient on Plavix 75 continue metoprolol 12.5 mg orally once every day, atorvastatin 40 mg orally once every day, monitor the patient's symptoms very closely cardiology consultation appreciated. 4. Hypertension and hypertensive cardiovascular disease. Continue metoprolol 12.5 mg orally once every day, Lotensin 40 mg orally bedtime. Monitor the patie nt blood pressure a closely. 5. Hyperlipidemia. Continue patient on atorvastatin 40 mg once every day, monitor lipid panel, keep LDL 55-70. 6. Diabetes mellitus type 2. Continue Lantus 33 units at bedtime, continue Jardiance 10 mg orally once every day, continue Trulicity 1.5 mg Subcutaneously once every week, continue sliding scale insulin. 7. Enlarged prostate. Continue doxazosin 8 mg once every day. 8. Paroxysmal atrial fibrillation. Continue patient on Eliquis 5 mg orally twice every day and Metoprolol 12.5 mg orally daily. 9. Anxiety disorder. Continue patient on venlafaxine 37.5 mg once every day. 10. Ischemic cardiopathy. Spironolactone as well as Lasix were put on hold due to his acute kidney injury. 11. Acute kidney injury on chronic kidney disease 3a. Continue IV fluid resuscitation at 50 mL an hour, monitor the patient input and output and daily weight hold Lasix and spironolactone for the next 24 hours. Monitor the patient CMP, avoid nephrotoxins. 12. DVT prophylaxis. Currently on Eliquis 5 mg orally bid. 13. GI prophyalxis . we will continue with PPI. 14. Home in AM Objective - Vital Signs Vital signs: Vital Signs Temp 98.1 F 02/21/22 15:00 Pulse 60 02/21/22 15:00 Resp 20 02/21/22 15:00 BP 126/69 02/21/22 15:00 Pulse Ox 96 02/21/22 15:00 FiO2 Intake & Output 02/21/22 02/21/22 02/22/22 06:59 18:59 06:59 Weight 122.47 kg Other: # Voids 1 2 - Labs CBC & Chem 7: 02/21/22 05:31 02/21/22 05:31 Labs: Abnormal Lab Results - Last 24 Hours (Table) 02/20/22 02/20/22 02/21/22 Range/Units 02:00 21:11 05:31 WBC 3.33 L (4.50-10.00) X 10*3/uL RBC 4.35 L (4.40-5.60) X 10*6/uL Hgb 12.2 L (13.0-17.0) g/dL Hct 39.2 L (39.6-50.0) % MCHC 31.1 L (32.0-37.0) g/dL Plt Count 60 L (140-440) X 10*3/uL MPV 13.3 H (9.5-12.2) fL Lymphocytes # 0.68 L (0.90-5.00) X 10*3/uL Eosinophils # 0.02 L (0.04-0.35) X 10*3/uL Immature Plt Fraction 11.0 H (1.1-6.1) % Carbon Dioxide (20.0-27.5) mmol/L BUN (9.0-27.0) mg/dL Est GFR (CKD-EPI)AfAm (60.0-200.0) Est GFR (CKD-EPI)NonAf (60.0-200.0) BUN/Creatinine Ratio (12.00-20.00) Ratio POC Glucose (mg/dL) 154 H (70-110) mg/dL Hemoglobin A1c 6.8 H (0.0-6.0) % Calcium (8.7-10.3) mg/dL 02/21/22 02/21/22 02/21/22 Range/Units 05:31 12:23 17:11 WBC (4.50-10.00) X 10*3/uL RBC (4.40-5.60) X 10*6/uL Hgb (13.0-17.0) g/dL Hct (39.6-50.0) % MCHC (32.0-37.0) g/dL Plt Count (140-440) X 10*3/uL MPV (9.5-12.2) fL Lymphocytes # (0.90-5.00) X 10*3/uL Eosinophils # (0.04-0.35) X 10*3/uL Immature Plt Fraction (1.1-6.1) % Carbon Dioxide 18.8 L (20.0-27.5) mmol/L BUN 31.3 H (9.0-27.0) mg/dL Est GFR (CKD-EPI)AfAm 55.0 L (60.0-200.0) Est GFR (CKD-EPI)NonAf 47.5 L (60.0-200.0) BUN/Creatinine Ratio 20.87 H (12.00-20.00) Ratio POC Glucose (mg/dL) 181 H 225 H (70-110) mg/dL Hemoglobin A1c (0.0-6.0) % Calcium 8.1 L (8.7-10.3) mg/dL
--- NOTE | 2022-02-23 15:50 | P.DS ---
Providers Date of admission: 02/20/22 03:45 Expected date of discharge: 02/22/22 Attending physician: Isaías Wei Consults: 02/20/22 03:42 Consult Physician Urgent Consulting Provider: Yan Brewer Consult Reason/Comments: covid Do you want consulting provider notified?: Yes 02/21/22 08:22 Consult Physician Routine Consulting Provider: Jade Lopez Consult Reason/Comments: Syncope, near syncope Do you want consulting provider notified?: Already Contacted Primary care physician: Isaías Wei Hospital Course: HISTORY OF PRESENT ILLNESS: This is a 66-year-old male with a previous medical history significant for coronary artery disease status post PCI of the distal RCA back in 2007, history of the 95% stenosis of the proximal LCx, and 80% stenosis of the pr oximal obtuse marginal branch 2 status post PCI with Dr. Melgoza in January 2020, chronic atrial fibrillation status post DC cardioversion, hypertension and hypertensive perivascular disease, hyperlipidemia, diabetes mellitus type 2 is requiring, history of enlarged prostate, history of obesity, patient presented to the emergency department at [facility] after he had recurrent syncopal episode after he sustained a COVID-19 infection and he was not able to keep anything down with increase abdominal pain associated with nausea vomiting and diarrhea patient had fallen at home and he could not get up because his legs were extremely shaky, he came to the ER and he was given IV fluid resuscitation, and also did have a computed tomography scan of the head and neck that showed no evidence of acute abnormalities except for spondylosis of the cervical spine, he had an x-ray of the right knee that was negative for acute fracture he had an x- ray of the wrist that showed evidence of osteophytes of the base of the thumb, patient was admitted to the hospital he was started on IV Decadron 6 mg 1, he was placed on zinc sulfate 50 mg once every day as well as vitamin D, vitamin C, he was seen in consultation by pulmonary medicine as well as by cardiology, and he was admitted to the hospital for observation. 02/21: Patient is sitting up in bed is feeling better, still somewhat weak, co ntinues to have diarrhea, appetite is well, we will continue to monitor for the next 24 hours then he will be discharged home, patient respiratory status has been stable, without evidence of any acute issues at this point an patient is so peculiar about his insulin regimen and he takes 10 % of his BGM as far as SSI, we will continue to monitor the patient well discharge diagnoses: 1. Syncope likely related to vasovagal reaction due to gastrointestinal fluid loss. 2. COVID-19 infection without pneumonia, but with GI involvement. 3. Coronary artery disease status post PCI of the RCA/LCx/OM2. 4. Hypertension and hypertensive cardiovascular disease. 5. Hyperlipidemia. 6. Diabetes mellitus type 2. 7. Enlarged prostate. 8. Paroxysmal atrial fibrillation. 9. Anxiety disorder. 10. Ischemic cardiopathy. 11. Acute kidney injury on chronic kidney disease 3a. Patient Condition at Discharge: Stable Plan - Discharge Summary Discharge Rx Participant: No New Discharge Prescriptions: New dexAMETHasone ORAL [Hexadrol] 6 mg PO DAILY #7 tab Zinc Sulfate [Orazinc] 220 mg PO DAILY #30 cap Metoprolol Tartrate [Lopressor] 12.5 mg PO DAILY #30 tab Continue Atorvastatin [Lipitor] 40 mg PO DAILY Clopidogrel [Plavix] 75 mg PO DAILY Doxazosin Mesylate 8 mg PO HS Empagliflozin [Jardiance] 10 mg PO DAILY Insulin Glargine,Hum.rec.anlog [Lantus Solostar Pen] 33 unit SQ HS Levothyroxine Sodium [Synthroid] 50 mcg PO DAILY Apixaban [Eliquis] 5 mg PO BID #60 tab Nitroglycerin Sl Tabs [Nitrostat] 0.4 mg SUBLINGUAL Q5M PRN #25 tab PRN Reason: Chest Pain Benazepril HCl [Lotensin] 40 mg PO HS Spironolactone [Aldactone] 12.5 mg PO DAILY Furosemide [Lasix] 20 mg PO DAILY PRN PRN Reason: Edema Venlafaxine HCl ER [Effexor XR] 37.5 mg PO DAILY Cholecalciferol [Vitamin D3 (25 Mcg = 1000 Iu)] 25 mcg PO DAILY Dulaglutide [Trulicity] 1.5 mg SQ LEE Insulin Lispro [humaLOG Kwikpen] See Protocol SQ AC-TID Discontinued Metoprolol Succinate (ER) [Toprol XL] 50 mg PO BID #180 tab.er.24h Amiodarone [Cordarone] 100 mg PO DAILY Discharge Medication List Atorvastatin [Lipitor] 40 mg PO DAILY 02/08/20 [History] Clopidogrel [Plavix] 75 mg PO DAILY 02/08/20 [History] Doxazosin Mesylate 8 mg PO HS 02/08/20 [History] Empagliflozin [Jardiance] 10 mg PO DAILY 02/08/20 [History] Insulin Glargine,Hum.rec.anlog [Lantus Solostar Pen] 33 unit SQ HS 02/08/20 [History] Levothyroxine Sodium [Synthroid] 50 mcg PO DAILY 02/08/20 [History] Apixaban [Eliquis] 5 mg PO BID #60 tab 02/09/20 [Rx] Nitroglycerin Sl Tabs [Nitrostat] 0.4 mg SUBLINGUAL Q5M PRN #25 tab 02/11/20 [Rx] Benazepril HCl [Lotensin] 40 mg PO HS 02/28/20 [History] Cholecalciferol [Vitamin D3 (25 Mcg = 1000 Iu)] 25 mcg PO DAILY 02/20/22 [History] Dulaglutide [Trulicity] 1.5 mg SQ LEE 02/20/22 [History] Furosemide [Lasix] 20 mg PO DAILY PRN 02/20/22 [History] Insulin Lispro [humaLOG Kwikpen] See Protocol SQ AC-TID 02/20/22 [History] Spironolactone [Aldactone] 12.5 mg PO DAILY 02/20/22 [History] Venlafaxine HCl ER [Effexor XR] 37.5 mg PO DAILY 02/20/22 [History] Metoprolol Tartrate [Lopressor] 12.5 mg PO DAILY #30 tab 02/22/22 [Rx] Zinc Sulfate [Orazinc] 220 mg PO DAILY #30 cap 02/22/22 [Rx] dexAMETHasone ORAL [Hexadrol] 6 mg PO DAILY #7 tab 02/22/22 [Rx] Follow up Appointment(s)/Referral(s): Valerie Melgoza MD [STAFF PHYSICIAN] - 2 Weeks ([facility] to call patient to arrange follow-up) Isaías Wei MD [Primary Care Provider] - 1 Week Discharge Disposition: HOME SELF-CARE
== END 2022-02-22 15:40 | disposition home or self-care (01) ==
LOC: EC 00:50 → 6NMEDSUR 03:45
PROVIDERS: ADMIT Internal Medicine; ATTEND Internal Medicine
DX: R55 Syncope and collapse (principal); U07.1 COVID-19; N17.9 Acute kidney failure, unspecified; M25.561 Pain in right knee; M18.12 Unilateral primary osteoarthritis of first carpometacarpal joint, left hand; I25.10 Atherosclerotic heart disease of native coronary artery without angina pectoris; F41.9 Anxiety disorder, unspecified; E78.5 Hyperlipidemia, unspecified; E83.42 Hypomagnesemia; I25.5 Ischemic cardiomyopathy; E66.9 Obesity, unspecified; M47.812 Spondylosis without myelopathy or radiculopathy, cervical region; E03.9 Hypothyroidism, unspecified; I13.10 Hypertensive heart and chronic kidney disease without heart failure, with stage 1 through stage 4 chronic kidney disease, or unspecified chronic kidney disease; E11.22 Type 2 diabetes mellitus with diabetic chronic kidney disease; N18.31 Chronic kidney disease, stage 3a; N40.0 Benign prostatic hyperplasia without lower urinary tract symptoms; I08.1 Rheumatic disorders of both mitral and tricuspid valves; I48.19 Other persistent atrial fibrillation; M25.742 Osteophyte, left hand; Z79.899 Other long term (current) drug therapy; Z79.890 Hormone replacement therapy; Z79.84 Long term (current) use of oral hypoglycemic drugs; Z79.02 Long term (current) use of antithrombotics/antiplatelets; Z87.891 Personal history of nicotine dependence; Z82.49 Family history of ischemic heart disease and other diseases of the circulatory system; Z79.01 Long term (current) use of anticoagulants; Z95.5 Presence of coronary angioplasty implant and graft; Z68.37 Body mass index [BMI] 37.0-37.9, adult
CPT/HCPCS: 96360; 96361 ×2; 96365; 99285; 36415; 94640 ×4; 94760; 93005; 93270; 97162; 80053; 80048; 83605; 83735 ×2; 84484; 85025 ×2; 85610; 85730; 81003; 87502; 83036; 87635; 73110; 73560; 71045; 72125; 70450; G0378 ×3; J3475; J8540 ×2

== ENCOUNTER → 2022-09-26 | Outpatient (CLI) | payer MEDICARE ==
[2022-09-26 10:34] LABS: Appearance,Urine Clear (Clear); Bilirubin,Urine Negative (Negative); Blood,Urine Negative (Negative); Color,Urine Light Yellow; Glucose,Urine (UA) 4+ (Negative); Ketones,Urine Negative (Negative); Leukocyte Esterase,Urine Negative (Negative); Nitrite,Urine Negative (Negative); Protein,Urine Negative (Negative); Specific Gravity,Urine 1.021 (1.001-1.035); Urobilinogen,Urine <2.0 mg/dL (<2.0)
[2022-09-26 16:32] LABS: Basophils # (A) 0.02 X 10*3/uL (0.00-0.10); Basophils % (A) 0.2 %; Eosinophils # (A) 0.25 X 10*3/uL (0.04-0.35); Eosinophils % (A) 2.9 %; HCT 42.8 % (39.6-50.0); HGB 13.1 d/dL (12.0-15.0); Lymphocytes # (A) 1.35 X 10*3/uL (0.90-5.00); Lymphocytes % (A) 15.6 %; MCH 28.1 pg (27.0-32.0); MCHC 30.6 d/dL (32.0-37.0); MCV 91.8 FL (80.0-97.0); Mean Platelet Volume 12.7 FL (9.5-12.2); Monocytes % (A) 8.1 %; NRBC Per 100 WBC 0 X 10*3/uL (0.00-0.01); Neutrophils # (A) 6.31 X 10*3/uL (1.80-7.70); Neutrophils % (A) 72.9 %; Platelet Count 120 X 10*3/uL (140-440); RBC 4.66 X 10*6/uL (4.40-5.60); RDW 14.1 % (11.5-14.5); WBC 8.66 X 10*3/uL (4.50-10.00)
[2022-09-26 16:49] LABS: ALT 38 U/L (10-49); AST 24 U/L (14-35); Albumin 4.2 d/dL (3.8-4.9); Albumin/Globulin Ratio 1.91 Ratio (1.60-3.17); Alkaline Phosphatase 67 U/L (41-126); BUN/Creat Ratio 28.08 Ratio (12.00-20.00); Blood Urea Nitrogen 33.7 mg/dL (9.0-27.0); Calcium 9.7 mg/dL (8.7-10.3); Carbon Dioxide 20.9 mmol/L (21.6-31.8); Chloride 111 mmol/L (96-109); Chol/HDL Ratio 3.17 Ratio; Globulin 2.2 d/dL (1.6-3.3); Glucose 156 mg/dL (70-110); LDL Cholesterol,Calculated 70.6 mg/dL (0.0-131.0); Potassium 5.5 mmol/L (3.5-5.5); Sodium 142 mmol/L (135-145); Total Bilirubin 0.2 mg/dL (0.3-1.2); Total Protein 6.4 d/dL (6.2-8.2)
== END | disposition home or self-care (01) ==
LOC: LABWHC1 08:49
PROVIDERS: ATTEND Nurse Practitioner Adult Health
DX: I10 Essential (primary) hypertension (principal); E78.2 Mixed hyperlipidemia; E03.9 Hypothyroidism, unspecified; E11.65 Type 2 diabetes mellitus with hyperglycemia; E55.9 Vitamin D deficiency, unspecified; R30.0 Dysuria
CPT/HCPCS: 36415; 80053; 80061; 81003; 82306; 83036; 84443; 85025

== ENCOUNTER → 2023-11-17 | Outpatient (CLI) | payer MEDICARE ==
[2023-11-17 17:13] LABS: NT-Pro-B-Type Natriuretic Pept 2022 pg/mL (0-125)
[2023-11-19 00:02] LABS: ALT 157 U/L (10-49); AST 62 U/L (14-35); Albumin 4.2 g/dL (3.8-4.9); Albumin/Globulin Ratio 1.75 Ratio (1.60-3.17); Alkaline Phosphatase 110 U/L (41-126); Blood Urea Nitrogen 39.2 mg/dL (9.0-27.0); Calcium 9.5 mg/dL (8.7-10.3); Carbon Dioxide 19.5 mmol/L (21.6-31.8); Chloride 100 mmol/L (96-109); Chol/HDL Ratio 3.57 Ratio; Globulin 2.4 g/dL (1.6-3.3); Glucose 186 mg/dL (70-110); LDL Cholesterol,Calculated 87.4 mg/dL (0.0-131.0); Potassium 5.3 mmol/L (3.5-5.5); Sodium 138 mmol/L (135-145); Total Bilirubin 0.6 mg/dL (0.3-1.2); Total Protein 6.6 g/dL (6.2-8.2)
== END | disposition home or self-care (01) ==
LOC: LABWHC1 10:05
PROVIDERS: ATTEND Internal Medicine Interventional Cardiology
DX: E78.2 Mixed hyperlipidemia
CPT/HCPCS: 36415; 80053; 80061; 83880

== ENCOUNTER → 2023-12-31 | Outpatient (CLI) | payer MEDICARE ==
[2023-12-31 15:41] LABS: ALT 50 U/L (10-49); AST 30 U/L (14-35); Chol/HDL Ratio 3.96 Ratio; LDL Cholesterol,Calculated 98.4 mg/dL (0.0-131.0); VLDL Calculation 18.16 mg/dL (5.00-40.00)
== END | disposition home or self-care (01) ==
LOC: LABWHC1 10:47
PROVIDERS: ATTEND Internal Medicine Interventional Cardiology
CPT/HCPCS: 36415; 80061; 84450; 84460

== ENCOUNTER → 2024-02-26 | Outpatient (CLI) | payer MEDICARE ==
[2024-02-26 16:05] LABS: Basophils # (A) 0.03 X 10*3/uL (0.00-0.10); Basophils % (A) 0.3 %; Eosinophils # (A) 0.14 X 10*3/uL (0.04-0.35); Eosinophils % (A) 1.4 %; HCT 48.3 % (39.6-50.0); HGB 15.1 g/dL (13.0-17.0); Lymphocytes # (A) 1.14 X 10*3/uL (0.90-5.00); Lymphocytes % (A) 11.1 %; MCH 28.9 pg (27.0-32.0); MCHC 31.3 g/dL (32.0-37.0); MCV 92.5 FL (80.0-97.0); Mean Platelet Volume 12.9 FL (9.5-12.2); Monocytes # (A) 0.86 X 10*3/uL (0.20-1.00); Monocytes % (A) 8.4 %; NRBC Per 100 WBC 0 X 10*3/uL (0.00-0.01); Neutrophils # (A) 8.06 X 10*3/uL (1.80-7.70); Neutrophils % (A) 78.3 %; Platelet Count 115 X 10*3/uL (140-440); RBC 5.22 X 10*6/uL (4.40-5.60); RDW 14.6 % (11.5-14.5); WBC 10.28 X 10*3/uL (4.50-10.00)
[2024-02-26 16:29] LABS: ALT 155 U/L (10-49); AST 69 U/L (14-35); Albumin 4.1 g/dL (3.8-4.9); Albumin/Globulin Ratio 1.78 Ratio (1.60-3.17); Alkaline Phosphatase 105 U/L (41-126); BUN/Creat Ratio 28.92 Ratio (12.00-20.00); Blood Urea Nitrogen 34.7 mg/dL (9.0-27.0); Calcium 9.4 mg/dL (8.7-10.3); Carbon Dioxide 23.7 mmol/L (21.6-31.8); Chloride 104 mmol/L (96-109); Chol/HDL Ratio 2.26 Ratio; Globulin 2.3 g/dL (1.6-3.3); Glucose 177 mg/dL (70-110); LDL Cholesterol,Calculated 42.6 mg/dL (0.0-131.0); Potassium 5.2 mmol/L (3.5-5.5); Sodium 139 mmol/L (135-145); Total Bilirubin 0.8 mg/dL (0.3-1.2); Total Protein 6.4 g/dL (6.2-8.2); VLDL Calculation 16.54 mg/dL (5.00-40.00)
[2024-02-26 16:30] LABS: Prostate Specific Antigen 0.41 ng/mL (0.000-4.500)
== END | disposition home or self-care (01) ==
LOC: LABWHC1 11:19
PROVIDERS: ATTEND Internal Medicine Clinical Cardiac Electrophysiology
DX: Z00.00 Encounter for general adult medical examination without abnormal findings (principal); I48.91 Unspecified atrial fibrillation; E78.2 Mixed hyperlipidemia; E03.9 Hypothyroidism, unspecified; E11.65 Type 2 diabetes mellitus with hyperglycemia; I10 Essential (primary) hypertension; E55.9 Vitamin D deficiency, unspecified; N40.1 Benign prostatic hyperplasia with lower urinary tract symptoms
CPT/HCPCS: 80053; 80061; 82043; 82306; 82570; 83036; 84153; 84443; 85025

== ENCOUNTER 2024-03-02 11:58 | Day surgery (SDC) | payer MEDICARE ==
[2024-03-02] MEDS: SODIUM CHLORIDE 0.9% 1,000 ML IV SCH (13:02)
[2024-03-02] MEDS: IV FLUID CONTINUATION 1,000 ML IV ONE (13:04)
[2024-03-02] MEDS: AMIODARONE 200 MG TAB PO STA (13:19)
[2024-03-02 13:39] LABS: Glucose,Whole Blood 174 mg/dL (70-110)
[2024-03-02] MEDS ORDERED: PHENYLEPHRINE 10 MG/ML VIAL ONE (13:59)
[2024-03-02] MEDS ORDERED: fentaNYL (PF) 50 MCG/ML 2 ML AMP ONE (13:59)
[2024-03-02] MEDS ORDERED: VASOPRESSIN 20 UNIT/ML 1 ML VIAL ONE (13:59)
[2024-03-02] MEDS ORDERED: PROPOFOL 10 MG/ML 20 ML VIAL IV ONE (13:59)
[2024-03-02] MEDS ORDERED: ROCURONIUM 10 MG/ML (5 ML VIAL) IV ONE (13:59)
[2024-03-02] MEDS ORDERED: HEPARIN SODIUM,PORCINE 10,000 UNIT/ML 1 ML VIAL ONE (13:59)
[2024-03-02] MEDS ORDERED: MIDAZOLAM 2 MG/2 ML VIAL ONE (13:59)
[2024-03-02] MEDS ORDERED: HEPARIN SODIUM,PORCINE 5,000 UNIT/ML 1 ML VIAL ONE (13:59)
[2024-03-02] MEDS ORDERED: LIDOCAINE 1% INJ 10MG/ML (20 ML MDV) ONE (13:59)
[2024-03-02 14:14] LABS: ALT 100 U/L (4-49); AST 33 U/L (17-59); African American GFR (CKD) 88 (>60 ml/min/1.73 sqM); Albumin 4.3 g/dL (3.5-5.0); Alkaline Phosphatase 102 U/L (38-126); Anion Gap 10 mmol/L; Blood Urea Nitrogen 30 mg/dL (9-20); Calcium 9.2 mg/dL (8.4-10.2); Carbon Dioxide 22 mmol/L (22-30); Chloride 109 mmol/L (98-107); Glucose 183 mg/dL (74-99); Non-African American GFR(CKD) 77 (>60 ml/min/1.73 sqM); Potassium 4.7 mmol/L (3.5-5.1); Sodium 141 mmol/L (137-145); Total Protein 6.8 g/dL (6.3-8.2)
[2024-03-02] MEDS: HEPARIN SOD,PORK IN 0.45% NACL 25,000 UNIT in 0.45% NACL 1 250ML.BAG IV ONE (14:36)
[2024-03-02] MEDS: LIDOCAINE 1% INJ 10MG/ML (20 ML MDV) SQ ONE (14:54)
[2024-03-02] MEDS: IOPAMIDOL-370 100ML BTL INJ ONE (16:52)
[2024-03-02] MEDS ORDERED: FUROSEMIDE 20 MG TAB PO PRN (17:08)
--- NOTE | 2024-03-02 17:20 | P.PRLE ---
RE: Christian Gallo Dear Isaías Gallo vein successful ablation for atrial fibrillation He may now stop amiodarone I would also recommend stopping fish oil since it increase the risk of atrial tachycardia and atrial fibrillation He should continue Eliquis uninterrupted especially for the next 2 months post AF ablation Thank you for entrusting me with the care of the patient Warm regards Sincerely Jose M Humphrey ,
--- NOTE | 2024-03-02 17:24 | P.HPCAR ---
History of Present Illness This is Dr. Humphrey dictating an H/P on this patient The patient was interviewed and examined IMPRESSION / ASSESSMENT: Persistent atrial fibrillation, failed treatment with amiodarone and electrical cardioversion Remains in A-fib with RVR A-fib related cardiomyopathy, symptomatic with shortness of breath on exertion a nd history of syncope during atrial fibrillation Central obesity Type 2 diabetes Mildly elevated ALT on amiodarone PLAN: A-fib ablation for symptomatic persistent atrial fibrillation with cardiomyopa thy that has failed treatment with amiodarone Diabetes management per primary care physician Continue amiodarone, discontinue fish oil Continue Eliquis uninterrupted HPI Patient continues to remain short of breath with exertion He has known cardiomyopathy during atrial fibrillation He remains in atrial fibrillation and has failed treatment with oral amiodarone followed by electrical cardioversion He is also experienced syncope and collapse with atrial fibrillation He denies any chest discomfort or shortness of breath when lying flat in bed ROS: No fever chills or rigors, no cough, phlegm or expectoration, no nausea, vomiting or diarrhea, no hematuria, dysuria, no musculoskeletal complaints, no strokes or seizures, no skin lesions. EXAMINATION: Afebrile, pulse rate 130 beats a minute at rest respirations normal Blood pressure 130/89 mmHg normal pulse ox No JVD Mild lower extremity edema bilaterally Central obesity Reduced breath sounds bilaterally Heart rates tachycardic heart sounds no murmurs REVIEW OF LABS, ECG & MEDICAL DATA Sodium 141 potassium 4.7 BUN 30 and creatinine 1.0 AST and is normal ALT is elevated at 100 TSH normal at 1.9 Physical Exam Vitals: Vital Signs Temp Pulse Resp BP BP Pulse Ox 03/02/24 13:36 98.2 F 138 H 20 130/89 101/64 98 Intake and Output 03/02/24 03/02/24 03/02/24 06:59 14:59 22:59 Intake Total 740 Balance 740 Intake: IV 740 Other: Weight 122.7 kg Past Medical History Past Medical History: Atrial Fibrillation, Coronary Artery Disease (CAD), Diabet es Mellitus, Hyperlipidemia, Hypertension, Thyroid Disorder Additional Past Medical History / Comment(s): kidney stones, New a-fib 02/08/2020, umbilical hernia History of Any Multi-Drug Resistant Organisms: None Reported Past Surgical History: Heart Catheterization With Stent Additional Past Surgical History / Comment(s): kidney stones-cystoscopy, total 7 cardiac stents(last 4 on 02/08/20) Past Anesthesia/Blood Transfusion Reactions: No Reported Reaction Date of Last Stent Placement:: 02/08/20 Smoking Status: Former smoker - Past Family History Father Family Medical History: Coronary Artery Disease (CAD) Additional Family Medical History / Comment(s): CABG Physical Examination Vital Signs Temp Pulse Resp BP BP Pulse Ox 03/02/24 13:36 98.2 F 138 H 20 130/89 101/64 98 Intake and Output 03/02/24 03/02/24 03/02/24 06:59 14:59 22:59 Intake Total 740 Balance 740 Intake: IV 740 Other: Weight 122.7 kg Results 03/02/24 12:45 Cardiac Enzymes 03/02/24 Range/Units 12:45 AST 33 (17-59) U/L Comprehensive Metabolic Panel 03/02/24 Range/Units 12:45 Sodium 141 (137-145) mmol/L Potassium 4.7 (3.5-5.1) mmol/L Chloride 109 H (98-107) mmol/L Carbon Dioxide 22 (22-30) mmol/L BUN 30 H (9-20) mg/dL Creatinine 1.00 (0.66-1.25) mg/dL Glucose 183 H (74-99) mg/dL Calcium 9.2 (8.4-10.2) mg/dL AST 33 (17-59) U/L ALT 100 H (4-49) U/L Alkaline Phosphatase 102 (38-126) U/L Total Protein 6.8 (6.3-8.2) g/dL Albumin 4.3 (3.5-5.0) g/dL Current Medications Generic Name Dose Route Start Last Admin Trade Name Freq PRN Reason Stop Dose Admin Acetaminophen 650 mg 03/02/24 17:11 Acetaminophen Tab 325 Mg Tab PO 04/01/24 17:10 Q6HR PRN Mild Pain (Scale 1 to 3) Apixaban 5 mg 03/02/24 21:00 Apixaban 5 Mg Tab PO 04/01/24 20:59 BID [facility]1983 Protocol Atorvastatin Calcium 40 mg 03/03/24 09:00 Atorvastatin 40 Mg Tab PO 04/02/24 08:59 DAILY [facility]1983 Doxazosin Mesylate 2 mg 03/02/24 21:00 Doxazosin 2 Mg Tab PO 04/01/24 20:59 BID FRANCISCA Ezetimibe 10 mg 03/03/24 09:00 Ezetimibe 10 Mg Tab PO 04/02/24 08:59 DAILY FRANCISCA Furosemide 20 mg 03/02/24 17:08 Furosemide 20 Mg Tab PO 04/01/24 17:07 DAILY PRN Edema Lactated Ringer's 1,000 mls @ 20 mls/hr 03/02/24 05:55 Lactated Ringers IV 04/01/24 05:54 .Q24H FRANCISCA Sodium Chloride 1,000 mls @ 20 mls/hr 03/02/24 05:55 03/02/24 13:02 Saline 0.9% IV 04/01/24 05:54 20 mls/hr .Q24H FRANCISCA Administration Acetaminophen 1,000 mg/ IV 100 mls @ 400 mls/hr 03/02/24 17:11 Solution IVPB 03/02/24 17:25 ONCE ONE Levothyroxine Sodium 50 mcg 03/03/24 09:00 Levothyroxine 50 Mcg Tab PO 04/02/24 08:59 DAILY FRANCISCA Lisinopril 2.5 mg 03/03/24 09:00 Lisinopril 2.5 Mg Tab PO 04/02/24 08:59 DAILY FRANCISCA Non-Formulary Medication 81 mg 03/02/24 21:00 Aspirin [[place] Aspirin Ec] PO 04/01/24 20:59 HS FRANCISCA Non-Formulary Medication 25 mg 03/03/24 09:00 Empagliflozin [Jardiance] PO 04/02/24 08:59 DAILY FRANCISCA Non-Formulary Medication 50 unit 03/02/24 21:00 Insulin Glargine,Hum.Rec.Anlog [Lantus Solostar Pen] SQ 04/01/24 20:59 HS FRANCISCA Non-Formulary Medication 100 mg 03/02/24 21:00 Metoprolol Tartrate [Lopressor] PO 04/01/24 20:59 BID FRANCISCA Sodium Chloride 12 ml 03/02/24 17:11 Sodium Chloride 0.9% Flush 10 Ml Syringe IV 04/01/24 17:10 Q12HR PRN Line Flush Venlafaxine HCl 150 mg 03/03/24 09:00 Venlafaxine Hcl Er 150 Mg Cap PO 04/02/24 08:59 DAILY FRANCISCA Intake and Output 03/02/24 03/02/24 03/02/24 06:59 14:59 22:59 Intake Total 740 Balance 740 Intake: IV 740 Other: Weight 122.7 kg Patient Weight 03/03/24 06:59 Weight 122.7 kg 03/02/24 12:45
[2024-03-02 17:38] LABS: Glucose,Whole Blood 178 mg/dL (70-110)
--- NOTE | 2024-03-02 17:39 | P.EPPROC ---
- EP Procedure Note Electrophysiology Procedure Note: PROCEDURE A. fib ablation with PVI, left atrial septal ablation and left atrial roof ablation DIAGNOSIS Persistent atrial fibrillation, symptomatic, failed amiodarone and electrical cardioversion, associated with cardiomyopathy RESULT No left atrial appendage mass seen on intracardiac echo, large left atrial appendage, thickened pericardium with exudative material Successful A. fib ablation/pulmonary vein isolation of all veins using cryo- ablation Complete entrance block in all 4 veins confirmed Left atrial roof ablation Left atrial septal ablation No evidence for phrenic nerve injury Esophageal deflection YES Electrical cardioversion with a synchronized shock across the chest YES PROCEDURE DETAILS Written informed consent prior to procedure. Patient brought to the EP lab. General anesthesia given. Heparin administered. A city maintained above 300 seconds Both groins prepped and draped per protocol and venous sheaths placed. Esophagus intubated, circa catheter for temperature monitoring an endoscope for possible esophageal deflection. Phrenic nerve monitoring performed. Esophageal temperature monitoring performed. Esophageal deflection performed if circa catheter overlapping with the balloon or circa temperature less than 27.5C Intracardiac echocardiography performed. Pericardium evaluated. Left atrial appendage evaluated. Left atrium evaluated along with pulmonary veins Transseptal catheterization performed under fluoroscopic guidance and intracard iac echo guidance Cryoablation sheath exchanged, balloon catheter along with achieve catheter placed in the left atrium. Pulmonary veins isolated in the following sequence: Left superior pulmonary vein followed by left inferior pulmonary vein, followed by right inferior pulmonary vein and lastly right superior pulmonary vein. Phrenic nerve stimulation along with capture thresholds within the SVC and right superior pulmonary vein to identify the phrenic nerve proximity to the cryo- balloon. Pulmonary veins isolated and confirmed with entrance and exit block. Phrenic nerve integrity confirmed at the end of the procedure Ablation of the left atrial roof performed with sequential lesions from the left superior to the right superior pulmonary veins. Ablation of the electrograms confirmed Ablation of the left atrial septum performed with cannulation of the superior branch of the right inferior to achieve ablation of the posterior septum of the left atrium. Ablation of electrograms confirmed Electrical cardioversion performed for low blood pressure during general anesthesia, prior to starting ablation. Diagnostic catheters for the high right atrium, His bundle, coronary sinus place d. LA and RA pressures recorded LA pressure: 08/09/12 Diagnostic EP study with coronary sinus pacing and recording Baseline measurements: AH interval 71 ms, HV interval 45 ms Sinus cycle length 822 ms, OR interval 159 ms, QRS 125 ms and QT interval 500 ms Venous sheaths were removed and hemostasis assured with a closure device. Patient extubated and transferred to recovery Increase procedural time During ablation multiple attempts had to be made to move the esophagus a safe distance of the from the pulmonary vein draining cryoablation, to avoid excessive thermal cooling of the esophagus This took extra time and effort to keep the esophagus a safe distance away from the cryoablation balloon. Multiple attempts needed for successful cryoablation isolation of the left superior pulmonary vein despite excellent occlusion, the pulmonary veins could not be eliminated and took multiple ablations and occlusions with different angulations to achieve complete isolation. PROCEDURES PERFORMED Diagnostic EP study CS pacing and recording Left and right transseptal catheterization Catheter the mapping of the tachycardia Intracardiac echocardiography Pulmonary vein isolation with transseptal and comprehensive EPS, [id number] Extended procedure duration Left atrial roof line, [id number] Linear ablation, septum left atrium, +[id number] Electrical cardioversion with a synchronized shock across the chest [id number]
[2024-03-02] MEDS: LACTATED RINGERS 1,000 ML IV SCH (19:57)
[2024-03-02 20:06] LABS: Glucose,Whole Blood 155 mg/dL (70-110)
[2024-03-02] MEDS: INSULIN DETEMIR (LEVEMIR) 100 UNIT/ML SYR SQ SCH (21:08)
[2024-03-02] MEDS: METOPROLOL TARTRATE 50 MG TAB PO SCH (21:10)
[2024-03-02] MEDS: DOXAZOSIN 2 MG TAB PO SCH (21:10)
[2024-03-02] MEDS: ASPIRIN 81 MG PO SCH (21:10)
[2024-03-02] MEDS: APIXABAN 5 MG TAB PO SCH (21:10)
[2024-03-02] MEDS: INSULIN ASPART (NovoLOG) 100 UNIT/ML VIAL SQ SCH (21:16)
[2024-03-02] MEDS: ACETAMINOPHEN IV (For NPO) 1,000 MG in EMPTY BAG 1 BAG IVPB ONE (22:27)
[2024-03-03 02:56] VITALS: TEMP 98.2
[2024-03-03 05:43] LABS: Glucose,Whole Blood 209 mg/dL (70-110)
[2024-03-03] MEDS: LEVOTHYROXINE 50 MCG TAB PO SCH (06:31)
[2024-03-03] MEDS: ACETAMINOPHEN TAB 325 MG TAB PO PRN (06:46)
[2024-03-03 07:29] VITALS: BP 129/72; PULSE 63; RESP 16
[2024-03-03] MEDS: VENLAFAXINE HCL ER 150 MG CAP PO SCH (08:17)
[2024-03-03] MEDS: ATORVASTATIN 40 MG TAB PO SCH (08:17)
[2024-03-03] MEDS: DAPAGLIFLOZIN PROPANEDIOL 10 MG TABLET PO SCH (08:22)
[2024-03-03] MEDS: EZETIMIBE 10 MG TAB PO SCH (08:22)
--- NOTE | 2024-03-03 09:56 | P.DS ---
Providers Attending physician: Jose M Humphrey [facility] Hospital Course: The patient is a 68-year-old male who underwent pulmonary vein isolation with Dr. Humphrey. Difficulty with esophageal deflection as well as isolating right superior pulmonary vein, however successful pulmonary vein isolation with left atrial roof and left septal ablation. Patient interviewed and examined sitting comfortably on the side of his bed. He states he did have some chest discomfort with deep breathing while lying flat, but feels well sitting up. No difficulty breathing with ambulation to the bathroom. GENERAL: Well-appearing, well-nourished and in no acute distress. NECK: Supple without JVD or thyromegaly. LUNGS: Breath sounds clear to auscultation bilaterally. Respiration equal and unlabored. No wheezes, rales or rhonchi. HEART: Regular rate and rhythm without murmurs, rubs or gallops. S1 and S2 heard. EXTREMITIES: Normal range of motion, no edema. No clubbing or cyanosis. Peripheral pulses intact and strong. Groin sites are clean dry and intact TELEMETRY: Sinus rhythm overnight IMPRESSION: Persistent atrial fibrillation Status post pulmonary vein isolation Dilated cardiomyopathy, secondary to arrhythmia Diabetes mellitus History of CAD PLAN: Continue anticoagulation Follow-up with PCP post procedure for diabetes management Patient may be discharged for outpatient follow-up I am dictating on behalf of Dr Jose M Humphrey's history/physical and assessment /plan. Plan - Discharge Summary Discharge Rx Participant: No New Discharge Prescriptions: Discontinued Venlafaxine HCl ER [Effexor Xr] 150 mg PO DAILY Amiodarone [Cordarone] 200 mg PO DAILY Eckert-3/Dha/Epa/Fish Oil [Fish Oil 1,000 mg Softgel] 1 tab PO DAILY No Action Atorvastatin [Lipitor] 40 mg PO DAILY Empagliflozin [Jardiance] 25 mg PO DAILY Insulin Glargine,Hum.rec.anlog [Lantus Solostar Pen] 50 unit SQ HS Levothyroxine Sodium [Synthroid] 50 mcg PO DAILY Apixaban [Eliquis] 5 mg PO BID #60 tab Nitroglycerin Sl Tabs [Nitrostat] 0.4 mg SUBLINGUAL Q5M PRN #25 tab PRN Reason: Chest Pain Furosemide [Lasix] 20 mg PO DAILY PRN PRN Reason: Edema lisinopriL 2.5 mg PO DAILY Aspirin [[place] Aspirin EC] 81 mg PO HS Cholecalciferol [Vitamin D3 (25 Mcg = 1000 Iu)] 25 mcg PO DAILY Insulin Lispro [humaLOG Kwikpen] 0 - 25 unit SQ AC-TID Metoprolol Tartrate [Lopressor] 100 mg PO BID Ezetimibe [Zetia] 10 mg PO DAILY Doxazosin Mesylate [Cardura] 2 mg PO BID Discharge Medication List Atorvastatin [Lipitor] 40 mg PO DAILY 02/08/20 [History] Empagliflozin [Jardiance] 25 mg PO DAILY 02/08/20 [History] Insulin Glargine,Hum.rec.anlog [Lantus Solostar Pen] 50 unit SQ HS 02/08/20 [History] Levothyroxine Sodium [Synthroid] 50 mcg PO DAILY 02/08/20 [History] Apixaban [Eliquis] 5 mg PO BID #60 tab 02/09/20 [Rx] Nitroglycerin Sl Tabs [Nitrostat] 0.4 mg SUBLINGUAL Q5M PRN #25 tab 02/11/20 [Rx] Cholecalciferol [Vitamin D3 (25 Mcg = 1000 Iu)] 25 mcg PO DAILY 02/20/22 [History] Furosemide [Lasix] 20 mg PO DAILY PRN 02/20/22 [History] Insulin Lispro [humaLOG Kwikpen] 0 - 25 unit SQ AC-TID 02/20/22 [History] Aspirin [[place] Aspirin EC] 81 mg PO HS 03/01/24 [History] Doxazosin Mesylate [Cardura] 2 mg PO BID 03/01/24 [History] Ezetimibe [Zetia] 10 mg PO DAILY 03/01/24 [History] Metoprolol Tartrate [Lopressor] 100 mg PO BID 03/01/24 [History] lisinopriL 2.5 mg PO DAILY 03/01/24 [History] Follow up Appointment(s)/Referral(s): Jose M Hmuphrey MD [STAFF PHYSICIAN] - As Needed (Follow-up with primary commutator undercutter within 1 week) Activity/Diet/Wound Care/Special Instructions: Post EP study - Ablation instructions 1. Keep access sites dry for 2 days. 2. No heavy lifting or straining for 2 days. 3. Avoid bending the hips repeatedly for 2 days. 4. You may go up and down stairs slowly 5. If you have had an ablation for atrial fibrillation or atrial flutter and are on a blood thinner, do not stop the blood thinner even temporarily for 3 months post ablation Call if the following is noted 1. Bleeding, increasing swelling or pain at the access sites. 2. Increasing chest discomfort, especially upon taking a deep breath. 3. Increasing shortness of breath, at rest or with exertion. 4. Undue cough / phlegm 5. Difficulty or pain while swallowing. 6. Pain or change in color in the extremities. 7. Fever, chills, rigors. 8. Increasing headache or neurologic symptoms. 9. Dizziness, fainting, palpitations For patients who have undergone an A-fib ablation /atrial flutter ablation Strict instruction; do NOT stop anticoagulation (Eliquis/Xarelto/Pradaxa) for the next 2 months temporarily, for any elective, nonurgent surgery. This increases the risk of stroke, post A-fib ablation Discontinue amiodarone Discontinue fish oil, increases risk of atrial tachycardia and atrial fibrillation Discharge Disposition: HOME SELF-CARE
== END 2024-03-03 13:32 | disposition home or self-care (01) ==
LOC: CATHEP 11:58 → 6NMEDSUR 16:54 → CATHEP 03-03 13:32
PROVIDERS: ATTEND Internal Medicine Clinical Cardiac Electrophysiology
DX: I48.19 Other persistent atrial fibrillation (principal); I42.0 Dilated cardiomyopathy; I10 Essential (primary) hypertension; I25.10 Atherosclerotic heart disease of native coronary artery without angina pectoris; Z95.5 Presence of coronary angioplasty implant and graft; E11.9 Type 2 diabetes mellitus without complications; E78.5 Hyperlipidemia, unspecified; I08.1 Rheumatic disorders of both mitral and tricuspid valves; R74.01 Elevation of levels of liver transaminase levels; R55 Syncope and collapse; E66.89 Other obesity not elsewhere classified; Z79.890 Hormone replacement therapy; Z79.01 Long term (current) use of anticoagulants; Z79.82 Long term (current) use of aspirin; Z79.84 Long term (current) use of oral hypoglycemic drugs; Z79.4 Long term (current) use of insulin; Z79.85 Long-term (current) use of injectable non-insulin antidiabetic drugs; Z79.899 Other long term (current) drug therapy; Z87.891 Personal history of nicotine dependence; Z88.5 Allergy status to narcotic agent; Z82.49 Family history of ischemic heart disease and other diseases of the circulatory system
CPT/HCPCS: 92960; 93656; 93657; 86900; 86901; 80053; 84443; 86850; J2003; Q9967; J1644

== ENCOUNTER → 2024-05-29 | Outpatient (CLI) | payer MEDICARE ==
[2024-05-29 13:40] LABS: ALT 59 U/L (10-49); AST 32 U/L (14-35); Albumin 4.2 g/dL (3.8-4.9); Albumin/Globulin Ratio 1.83 Ratio (1.60-3.17); Alkaline Phosphatase 70 U/L (41-126); BUN/Creat Ratio 26.62 Ratio (12.00-20.00); Blood Urea Nitrogen 34.6 mg/dL (9.0-27.0); Calcium 9.3 mg/dL (8.7-10.3); Carbon Dioxide 20.2 mmol/L (21.6-31.8); Chloride 110 mmol/L (96-109); Chol/HDL Ratio 2.51 Ratio; Globulin 2.3 g/dL (1.6-3.3); Glucose 169 mg/dL (70-110); LDL Cholesterol,Calculated 47.4 mg/dL (0.0-131.0); Potassium 5.4 mmol/L (3.5-5.5); Sodium 140 mmol/L (135-145); Total Bilirubin 0.4 mg/dL (0.3-1.2); Total Protein 6.5 g/dL (6.2-8.2)
== END | disposition home or self-care (01) ==
LOC: LABWHC1 09:09
PROVIDERS: ATTEND Internal Medicine Interventional Cardiology
DX: I10 Essential (primary) hypertension (principal); E78.2 Mixed hyperlipidemia
CPT/HCPCS: 36415; 80053; 80061